=== PATIENT | female | born 1935 | race Caucasian/White ===

== ENCOUNTER → 2017-11-27 | Outpatient (CLI) | payer MEDICARE ==
[~2017-11-27] MED LIST: ALBU4TAB4 PO; AMLO10TA2 PO; ARTIDRO3 EACH EYE; ATEN50TA PO; FISH500C PO; GLUC500T4 PO; MULTTAB67 PO; OCUVCAP PO; OXYC1TAB63 PO; PRAV40TA2 PO; TRIA37.5 PO
--- NOTE | 2017-11-27 12:22 | RADRPT ---
EXAM DATE/TIME: 11/27/2017 11:38 [facility] COMPARISON: No previous studies available for comparison. INDICATIONS : Evaluate for pneumothorax, pneumonia, or communicable disease. Pre-op, hysterectomy. MEDICAL HISTORY : Emphysema. Chronic obstructive pulmonary disease. Hypertension. SURGICAL HISTORY : Thyroidectomy. ENCOUNTER: Initial ACUITY: 1 day PAIN SCORE: 0/10 LOCATION: Bilateral chest FINDINGS: PA and lateral views of the chest demonstrate the lungs to be symmetrically aerated without evidence of mass, infiltrate or effusion. There some chronic interstitial changes bilaterally. The cardiomedia stinal contours are unremarkable. Osseous structures are intact. CONCLUSION: No acute disease. Venkat Magana MD on November 27, 2017 at 12:19 Board Certified Radiologist. This report was verified electronically.
--- NOTE | 2017-11-27 21:43 | EKG ---
Date Performed: 11/27/2017 Time Performed: 11:05:02 PTAGE: 81 years EKG: Sinus rhythm Normal ECG PREVIOUS TRACING : 01/18/2010 11.52 Compared to prior tracing no significant change DOCTOR: Cali Patel Interpretating Date/Time 11/27/2017 21:42:38
== END ==
LOC: CPRE 10:45
PROVIDERS: ATTEND Obstetrics & Gynecology Gynecologic Oncology
DX: Z01.812 Encounter for preprocedural laboratory examination (principal); Z01.810 Encounter for preprocedural cardiovascular examination; Z01.811 Encounter for preprocedural respiratory examination; R19.09 Other intra-abdominal and pelvic swelling, mass and lump
CPT/HCPCS: 71020; 93005

== ENCOUNTER 2017-12-08 08:10 | Observation (INO) | payer MEDICARE ==
[~2017-12-08] VITALS: Ht 172.7 cm; Wt 80.1 kg
[~2017-12-08 08:10] MED LIST changes: -ARTIDRO3 EACH EYE; -OXYC1TAB63 PO
[2017-12-08] MEDS ORDERED: METOPROLOL TARTRATE 25 MG TAB PO PRN (08:45)
[2017-12-08] MEDS ORDERED: CHLORHEXIDINE GLUCONATE 2 % 1 PACK (2 CLOTHS) TOPICAL PRN (08:45)
[2017-12-08] MEDS ORDERED: LACTATED RINGER'S 1000 ML IV PRN (08:45)
[2017-12-08] MEDS ORDERED: SODIUM CHLORID 0.9% 500 ML IV PRN (08:45)
[2017-12-08] MEDS ORDERED: HEPARIN SODIUM - SQ 10,000 UNITS/ML VIAL SQ SCH (08:45)
[2017-12-08] MEDS ORDERED: INSULIN HUMAN REGULAR 1,000 UNITS/10 ML VIAL SQ PRN (08:45)
[2017-12-08] MEDS ORDERED: POVIDONE IODINE 5% (ANTISEPSIS KIT) 4 APPLICATIONS EACH NARE PRN (08:45)
[2017-12-08] MEDS ORDERED: LEVOFLOXACIN 500 MG PREMIX INJ 100 ML IV SCH (09:00)
[2017-12-08] MEDS ORDERED: METRONIDAZOLE 500 MG/100 ML ISONTONIC SOLN IV SCH (09:00)
[2017-12-08] MEDS ORDERED: ONDANSETRON HCL 4 MG/2 ML VIAL IV PUSH ONE (12:00)
[2017-12-08] MEDS ORDERED: ePHEDrine/NS 25 MG/5 ML SYRINGE IV ONE (12:00)
[2017-12-08] MEDS ORDERED: VECURONIUM BROMIDE 20 MG VIAL IV ONE (12:00)
[2017-12-08] MEDS ORDERED: DEXAMETHASONE SOD PHOS 4 MG/ML VIAL IV ONE (12:00)
[2017-12-08] MEDS ORDERED: LACTATED RINGER'S 1000 ML INJ 2,000 ML IV ONE (12:00)
[2017-12-08] MEDS ORDERED: PROPOFOL 200 MG/20 ML AMP IV ONE (12:00)
[2017-12-08] MEDS ORDERED: LIDOCAINE HCL 1% PF 5 ML SYRINGE OTHER ONE (12:00)
[2017-12-08] MEDS ORDERED: KETOROLAC TROMETHAMINE 30 MG/ML (IVP) VIAL IV PUSH ONE (12:00)
[2017-12-08] MEDS ORDERED: STERILE WATER FOR INJECTION 20 ML VIAL IV ONE (12:00)
[2017-12-08] MEDS ORDERED: ROCURONIUM INJ 50 MG/5 ML SYRINGE IV PUSH ONE (12:00)
[2017-12-08] MEDS ORDERED: NEOSTIGMINE 5 MG/5 ML SYRINGE IV PUSH ONE (12:00)
[2017-12-08] MEDS ORDERED: GLYCOPYRROLATE 1 MG/5 ML SYRINGE IV PUSH ONE (12:00)
[2017-12-08] MEDS ORDERED: SODIUM CHLORIDE 0.9% 20 ML VIAL IV ONE (12:00)
[2017-12-08] MEDS ORDERED: PHENYLEPH/NS 1000 MCG/10 ML SYR IV ONE (12:00)
[2017-12-08] MEDS ORDERED: LIDOCAINE 1%/EPINEPHrine 1:100,000 SOLN 20 ML VIAL ONE (13:24)
[2017-12-08] MEDS ORDERED: ACETAMINOPHEN 1000 MG/100 ML 100 ML IV ONE (14:43)
[2017-12-08] MEDS ORDERED: SUGAMMADEX SODIUM 200 MG/2 ML VIAL IV PUSH ONE (14:44)
[2017-12-08 17:45] LABS: HEMATOCRIT 37.7 % (35.0-46.0); HEMOGLOBIN 12.8 GM/DL (11.6-15.3)
[2017-12-08] MEDS ORDERED: LORazepam 0.5 MG TAB PO PRN (19:15)
[2017-12-08] MEDS ORDERED: SODIUM CHLORIDE 0.9% FLUSH 10 ML FLUSH IV FLUSH PRN (19:15)
[2017-12-08] MEDS ORDERED: oxyCODONE/ACETAMINOPHEN 5 MG/325 MG TAB PO PRN ×2 (19:15)
[2017-12-08] MEDS ORDERED: ONDANSETRON HCL 4 MG/2 ML VIAL IVP PRN (19:15)
[2017-12-08] MEDS ORDERED: diphenhydrAMINE HCL 25 MG CAP PO PRN (19:15)
--- NOTE | 2017-12-08 19:15 | PD.OP ---
Operative Report Date of Surgery: Dec 08, 2017 Preoperative Diagnosis: Right ureteral thermal injury Postoperative Diagnosis: Same Procedure: Cystoscopy with right double-J stent insertion Anesthesia: BREONNA Surgeon: Eric Hameed Pop Singer(s): None Resident Surgeon: None Operation and Findings: 8-year-old female who is undergoing resection of a pelvic mass by Dr. Ledbetter. Concern for right ureteral thermal injury was noted during the procedure and request for made for a right double-J stent insertion. The patient was oriented dorsal lithotomy position and received preprocedure antibiotics and was under general endotracheal tube anesthesia. 20 Ukrainian cystoscopy was inserted bladder flores cystoscopy did not reveal any abnormalities. Good efflux was identified from both ureteral orifices. A 0.35 sensor wire was then passed up through a 5 Ukrainian open catheter into the right ureteral orifice without difficulty. A 6 Ukrainian 22 cm right double-J stent was then passed without difficulty. The stent was noted to drain some debris after placement. The 16 Ukrainian Wang was then replaced without difficulty and she tolerated the procedure well. The plan will be to have her follow-up in the office in 4 weeks to undergo stent pull. Eric Hameed DO Dec 08, 2017 19:15
[2017-12-08] MEDS ORDERED: DO NOT ADM ANY ANTICOAGULANT DRUGS PRN (19:32)
[2017-12-08] MEDS ORDERED: MORPHINE SULFATE 4 MG/ML INJ ONE (19:47)
[2017-12-08] MEDS: D5-1/2 NS + KCL 20 MEQ INJ 1,000 ML IV SCH (20:00)
[2017-12-08] MEDS: KETOROLAC TROMETHAMINE 30 MG/ML (IVP) VIAL IVP SCH (20:00)
--- NOTE | 2017-12-08 20:04 | RADRPT ---
EXAM DATE/TIME: 12/08/2017 19:42 [facility] COMPARISON: No previous studies available for comparison. INDICATIONS : Possible aspiration. MEDICAL HISTORY : Emphysema. Chronic obstructive pulmonary disease. Hypertension SURGICAL HISTORY : Thyroidectomy. ENCOUNTER: Initial ACUITY: 1 day PAIN SCORE: 0/10 LOCATION: Bilateral chest FINDINGS: A single view of the chest demonstrates the lungs to be symmetrically aerated without evidence of mas s, infiltrate or effusion. The cardiomediastinal contours are unremarkable. Osseous structures are intact. CONCLUSION: Normal examination. The aorta remains quite tortuous. Nigel Ramirez MD on December 08, 2017 at 20:01 Board Certified Radiologist. This report was verified electronically.
[2017-12-08] MEDS: SODIUM CHLORIDE 0.9% FLUSH 10 ML FLUSH IV FLUSH SCH (20:34)
[2017-12-08 21:00] VITALS: BP 104/51; PULSE 59; RESP 18; TEMP 96.2; O2SAT 94
[2017-12-08] MEDS ORDERED: ALBUTEROL SULFATE 2 MG TAB PO SCH (21:00)
[2017-12-08 22:00] VITALS: PULSE 66
[2017-12-08] MEDS: metroNIDAZOLE 250 MG INJ 50 ML IV SCH (22:09)
[2017-12-08] MEDS: RESP: ALBUTEROL 1.25 MG/3 ML NEB (SCH) NEB (22:13)
[2017-12-08 22:18] VITALS: O2SAT 95
[2017-12-08 23:34] VITALS: BP 110/63; PULSE 67; RESP 16; TEMP 98.3; O2SAT 95
[2017-12-09] MEDS: KETOROLAC TROMETHAMINE 30 MG/ML (IVP) VIAL IVP SCH ×3 (02:46→13:31)
[2017-12-09] MEDS: RESP: ALBUTEROL 1.25 MG/3 ML NEB (SCH) NEB ×3 (03:24→16:23)
[2017-12-09 03:30] VITALS: BP 103/56; PULSE 69; RESP 16; TEMP 97; O2SAT 94
[2017-12-09] MEDS: metroNIDAZOLE 250 MG INJ 50 ML IV SCH ×2 (06:07→13:31)
[2017-12-09 06:54] LABS: AUTOMATED NEUTROPHIL # 16.8 TH/MM3 (1.8-7.7); BASOPHIL % 0.1 % (0.0-2.0); HEMATOCRIT 34.3 % (35.0-46.0); HEMOGLOBIN 11.8 GM/DL (11.6-15.3); LYMPH % 5.9 % (9.0-44.0); LYMPHOCYTE # 1.1 TH/MM3 (1.0-4.8); MEAN CORPUSCULAR HEMOGLOBIN 31.7 PG (27.0-34.0); MEAN CORPUSCULAR HGB CONC 34.5 % (32.0-36.0); MEAN PLATELET VOLUME 8.6 FL (7.0-11.0); MONO % 6.9 % (0.0-8.0); MONOCYTE # 1.3 TH/MM3 (0-0.9); NEUT % 87.1 % (16.0-70.0); PLATELET COUNT 281 TH/MM3 (150-450); RED BLOOD COUNT 3.73 MIL/MM3 (4.00-5.30); RED CELL DISTRIBUTION WIDTH 12.8 % (11.6-17.2); WHITE BLOOD COUNT 19.3 TH/MM3 (4.0-11.0)
[2017-12-09 07:16] LABS: CALCIUM 7.8 MG/DL (8.5-10.1); CARCINOEMBRYONIC ANTIGEN 1.7 NG/ML (0.2-5.0); CREATININE 0.98 MG/DL (0.50-1.00)
[2017-12-09 07:52] LABS: CA 125 146.1 U/ML (0.0-30.2)
[2017-12-09] MEDS ORDERED: OXYC1TAB63 PO (08:01)
--- NOTE | 2017-12-09 08:18 | MP ---
cc: CONRADO ROYAL MD,MELL GALVAN,EUGENE HAMEED,ALONSO MONIQUE DATE OF SURGERY 12/08/2017 PREOPERATIVE DIAGNOSIS 1. Complex pelvic mass. 2. Thickened endometrial stripe. 3. Postmenopausal bleeding. POSTOPERATIVE DIAGNOSIS 1. 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 2. Dense pelvic adhesions. 3. Atrophic endometrium. PROCEDURE Robotic-assisted laparoscopic hysterectomy, bilateral salpingo-oophorectomy (with resection of 18 cm complex right ovarian mass) right ureterolysis, extensive lysis of adhesions. SURGEON Eugene Galvan MD MINK SLICER [place] medical record assistant ANESTHESIA General endotracheal anesthesia ESTIMATED BLOOD LOSS 500 cc IV FLUIDS 2200 cc URINE OUTPUT [address] Alonso Hameed, Urology HISTORY This is an 82-year-old female who initially on routine exam asymptomatic found to have a pelvic mass. This was approximately May or July of last year. Imaging and exam suggested it to be approximately 9 cm complex. On further questioning, she revealed that she had some postmenopausal bleeding and was not sure if it was urologic of gynecologic in origin. Ultrasound suggested a thickened endometrial stripe of approximately 9-10 mm. She was seen and counseled and surgery was recommended at that time, however she declined. Follow-up imaging in the clinic in October showed that the mass had increased significantly in size to approximately 15 cm complex in nature and again surgery was recommended. She declined moving forward with surgery immediately and wanted to wait until after the holidays. She is seen now the preop holding area accompanied by her close friend. On preliminary exam in the preop holding area, the mass seems even slightly larger than previously as the upper limit of the mass is at the level of the umbilicus. She remains asymptomatic other than a sense of pelvic pressure on occasion and she does still have occasional bleeding that she remains uncertain as to whether or not it is urological or gynecologic. We reviewed the findings and recommendation for surgery. She is in great hopes of laparoscopic surgery to help facilitate faster recovery. She understands that our objective is to try to accomplish principle surgical objectives laparoscopically robotically, but she understands there may be a need to convert to a laparotomy. Her questions were asked and answered. She expressed a good understanding and agrees to move forward with surgery. FINDINGS Uterine cavity sounds to 8 cm. In the peritoneal cavity, the mass is clearly arising from and replacing the right ovary. It is noted prior to any surgical dissection, there is a defect in the posterior wall of the mass as there is blood-tinged fluid leaking posteriorly and in the posterior cul-de-sac. The mass is complex in nature clearly has cystic and solid components and the upper edges of the mass are relatively free and mobile. However in the cul-de-sac and against the right pelvic sidewall, there is some significant fixation. The left tube and ovary grossly appeared normal. The uterus grossly appears normal. In the peritoneal cavity, the liver diaphragm edges are smooth. The omentum grossly appears normal without peritoneal implants in the visceral or parietal peritoneum. The small bowel and large bowel mesentery and he bowel itself are normal without any obvious implants. There is some diverticulum without active diverticulosis such that there is no overt evidence of disease beyond this large mass. Preliminary pathology of the uterus shows the uterine lining to be thin. There is no obvious mass or polyp. There is no obvious thickening to the myometrium. No tumor seen in the uterus or cervix. 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 MODIFYING/STATEMENT OF COMPLEXITY The complexly of this case was increased significantly due to the dense pelvic adhesions and the way the tumor was fixed to the right pelvic sidewall and cul-de-sac. It is estimated that 60 minutes of time were required lysing adhesions trying to free the tumor from the pelvic sidewall to try to free the obliteration of the posterior cul-de-sac. Modifier should be applied accordingly. PROCEDURE She was taken to the operating room, placed in the dorsal lithotomy position after general endotracheal anesthesia was administered. A time-out was undertaken. She was identified by sight recognition and hospital ID bracelet and the proposed procedure was reviewed and confirmed. She was carefully positioned in padded Kev stirrups. Her arms were padded and secured to the side. She was further secured to the operating table with egg crate padding and tape in a cross chest over the shoulder fashion. All sites noted to be properly aligned with no malalignments or pressure points. She was prepped and draped in a sterile fashion and placed in lithotomy position. The cervix was grasped. The uterine cavity was sounded. Initially a standard V-Care was tried to be placed, but there was narrowing through the vaginal canal such that the V-Care was changed to a small V-Care which did satisfactorily fit around the cervix. It was secured in the usual fashion. A Wang catheter placed in the bladder. She was returned to low lithotomy position. After Wang catheter was placed, a change of sterile gloves was undertaken. We completed draping in anticipation of laparoscopy. After confirming that an orogastric tube was in the stomach on suction, with manual elevation of the abdominal wall and direct laparoscopic vision visualization, a 5-mm cannula was placed in the left upper quadrant in an atraumatic fashion. Carbon dioxide gas was insufflated and then a 10-mm cannula was placed in midline above the umbilicus and an 8-mm cannula placed in right upper quadrant and left lateral quadrant. Inspection confirmed the findings in the anatomy as described above. As noted, there was a defect in the posterior wall of this complex mass where bloody fluid had been leaking from the posterior aspect of this mass, but no other overt evidence of disease detected. The robotic system brought into the operative field and attached in usual fashion. Monopolar scissors, fenestrated bipolar forceps and Prograsp manipulators were placed in arms #1, 2 and 3 respectively and I took my place at the surgeon's console. The right round ligament was isolated, cauterized and transected. The anterior and posterior leafs of the broad ligament were opened. The right ureter was identified proximally as it crossed over the pelvic brim and the intervening peritoneum was opened as the infundibulopelvic ligament was isolated to the level of the pelvic brim. Instruments 1 and 3 exchanged for needle drivers as 0 Vicryl sutures were introduced. 0 Vicryl suture was tied securely around the infundibulopelvic ligament at the level of pelvic brim and another 0 Vicryl suture was tied securely around the infundibulopelvic ligament and then distal to this, it was cauterized thoroughly and then transected. The instruments were returned to monopolar scissors and fenestrated bipolar forceps. Sharp dissection and focal point cautery were used to free the adhesions along the posterolateral aspect of the mass. Blunt dissection and sharp dissection were used to free the ureter from along the posterolateral aspect of the mass as it was densely adherent and a ureterolysis was carried out proximally to distally to follow the ureter along its course through the pelvis. Given that the mass had a defect in it, the fluid that was leaking was drained and approximately 800 cc's of fluid had been drained which helped reduce the cystic component of the mass and increase mobility. The right vesicouterine peritoneum was dissected off the lower uterine segment and cervix as the right uterine vessels were skeletonized. The posterior peritoneum was opened along the right side of the uterus and cervix and the right uterine vessels were skeletonized, cauterized and transected as were the cardinal, paracervical and uterosacral ligaments. The right utero-ovarian ligament was isolated, cauterized and transected, but there remained dense fixation of this mass with seemingly tumor infiltrating through the capsule into the right pelvic sidewall and to the right cul-de-sac that was somewhat hemorrhagic and dissection was carried out with isolated sharp dissection, focal cautery. However, the mass remained densely adherent in this location. Attention was directed toward the left round ligament which was isolated, cauterized and transected. The anterior and posterior leafs of the broad ligament were opened. Adhesions were taken down to mobilize the colon away from the left pelvic sidewall. The left ureter was identified. The left infundibulopelvic ligament was isolated as the intervening peritoneum was opened. The infundibulopelvic ligament was isolated to the level of the pelvic brim where it was cauterized and transected. The posterior peritoneum opened along the left side of the uterus and cervix. Additional adhesions were taken down to open the posterior cul-de-sac and mobilize the colon from its adhesions against the posterior cervix. The left vesicouterine peritoneum was dissected off the lower uterine segment and cervix and the left uterine vessels were skeletonized, cauterized and transected as were the cardinal paracervical and uterosacral ligaments. Attention was then redirected to the remaining fixation of tumor to pelvic sidewall. Blunt and sharp dissection were used to dissect this free and to remove the mass from the cul-de-sac and from overlying the surface of the colon and colonic mesentery. It was fairly hemorrhagic and had derived some new vasculature in this area. Isolated cautery and then pressure with a Ray-Felicia and pressure was used using the Ray-Felicia sponges to help with initial hemostasis. Colpotomy was performed following the cap of the [email or web address] manipulator the cervix from the upper vagina. The cervix and uterus and the attached left tube and ovary were then withdrawn transvaginally and a Pneumooccluder balloon was placed in the vagina to maintain pneumoperitoneum. Dissection was continued to separate the adherent mass against the right pelvic sidewall with care being taken to isolate the ureter and separate this. Focal cautery for hemostasis until this tumor was removed. A 15 cm EndoCatch bag was introduced transvaginally. The mass was captured in the bag. Some tumor that had extruded through the ruptured capsule was collected, placed in an EndoCatch bag and brought toward the vagina. I left the surgeon's console to help facilitate specimen delivery. Using ring forceps and tenaculums within the specimen bag as the bag was brought out through the introitus, the mass was reduced in size. The tumor was removed until the remainder of the tumor contained within the bag was withdrawn transvaginally and the Pneumooccluder balloon was replaced. I returned to the surgeon's console. Instruments one and three exchanged for needle drivers. As 0 Vicryl suture was introduced, the vaginal cuff was closed starting at the left corner full-thickness closure including the posterior edge of the peritoneum and uterosacral ligament tied securely. The closure was held on countertraction as a running continuous closure was carried across the vaginal apex to the contralateral corner where it was similarly fixed and secured tied via instrument tie. The needle was cut and removed. The integrity of the bladder was checked by filling the bladder with saline dyed with methylene blue. The bladder distended nicely under pressure. There were no areas of thinning of the bladder. No extravasation of dye and there was a good margin between the vaginal cuff suture line and the bladder edge and the bladder was drained. There is good peristalsis along the left ureter to its course and what could be seen of the peristalsis of the right ureter was reassuring, but there remained a thin plaque of tumor overlying the ureter against the right pelvic sidewall where the tumor had grown through the capsule and had fixed capful in this area and had been relatively hemorrhagic and this tissue had been sharply resected and cauterized. The pelvis and abdomen were thoroughly irrigated. Superficial serosal irritation in one area of the colon was oversewn with interrupted 3-0 Vicryl sutures. There was loss of integrity to the bowel wall, but this area was reinforced with interrupted 3-0 Vicryl sutures, tied via instrument tie and the needle was cut and removed. Due to the tumor fixation against the right pelvic sidewall, an extensive dissection in that area, confirmation of intact ureter beyond visible inspection was desired and so Dr. Alonso Hameed of urology was consulted. Dr. Hameed graciously came to the operating room without delay. I showed him on the laparoscopic monitor the area of concern and where I could see the ureter clearly with good peristalsis, I believed it to be intact with intact integrity, but I recommended cystoscopy and stent placement to ensure. The pelvis and abdomen were again thoroughly irrigated of any remaining tissue fragments and blood clot were remove. All sites were hemostatic. Hemostatic Surgicel powder was placed across the lateral sidewall dissection, vaginal cuff and posterior cul-de-sac. Given her age and medical condition and the duration of time already under anesthesia due to the difficulty of dissection combined with the fact that it was a high-grade tumor with ruptured capsule which systemic chemotherapy would be recommended, combined with the fact there was no obvious gross disease in the peritoneal cavity, it was felt that additional time under anesthesia for omentectomy, peritoneal biopsies, lymph node dissection or other staging steps would be associated with morbidity that exceeded benefit and would not impact treatment recommendations. Accordingly, it was felt that all reasonable surgical objectives had been completed. The robotic instruments were removed. The robotic system was disengaged from the operative field and I reentered the bedside under sterile condition. Each of the three Ray-Felicia sponges that had been placed in the perineal cavity were removed individually. Each were inspected noted be removed in their entirety. Preliminary counts were correct. There were no remaining foreign objects in the peritoneal cavity. The 12 mm fascial defect was closed with 0 Vicryl sutures interrupted using a needle pass fascia closure apparatus. They were tied securely which rendered the fascia completely airtight and hemostatic. The remaining cannulas were withdrawn. Carbon dioxide gas was removed from the peritoneal cavity. 3-0 Vicryl subcutaneous, 3-0 Vicryl subcuticular were used to close these incisions and Steri-Strips were placed over these incisions. She was returned to dorsolithotomy position. Pelvic exam confirmed that the vaginal cuff was well supported and hemostatic, however, there was a vaginal wall laceration from specimen delivery against a relatively narrow pelvic outlet atrophic tissue at the 9 o'clock position. This laceration was closed with interrupted 2-0 Vicryl suture which reapproximated the tissue rendering it hemostatic and then to assist in continued hemostasis some Surgicel snow was placed along the vaginal cuff and against the right pelvic sidewall in the region of the surgical repair. Otherwise, there were no remaining foreign objects in the vagina. Preliminary and final counts were correct. She was returned to low lithotomy position. At this point, Dr. Alonso Hameed performed cystoscopy. Please see his operative note, but he relayed to me that he saw good efflux of urine from the ureteral ostia bilaterally and he past a stent into the right ureter without any difficulty and the indwelling stent will be left to facilitate and ensure healing over the next few weeks. She was then returned to dorsal supine position and was pending reversal of anesthesia when I had already left the operating room to speak with her significant other in the family waiting area and to precede her to the Post Anesthesia Care Unit. MD KENISHA Amor/ABEBA /9:56 PM /7:30 AM
[2017-12-09 08:30] VITALS: BP 112/68; PULSE 72; RESP 18; TEMP 98.4; O2SAT 93
[2017-12-09] MEDS: SODIUM CHLORIDE 0.9% FLUSH 10 ML FLUSH IV FLUSH SCH (08:39)
[2017-12-09] MEDS ORDERED: ATENOLOL 50 MG TAB PO SCH (09:00)
[2017-12-09] MEDS ORDERED: PRAVASTATIN SOD 40 MG TAB PO SCH (09:00)
[2017-12-09] MEDS ORDERED: TRIAMTERENE/HCTZ 37.5 MG/25 MG TAB PO SCH (09:00)
--- NOTE | 2017-12-09 09:40 | MD ---
cc: CONRADO ROYAL MD,EUGENE MARTE MD, SHAWN ADMISSION DATE: 12/08/2017 DISCHARGE DATE: 12/09/2017 [facility] Visit Search.Discharge Date PROCEDURE 12/08/2017 - Robotic-assisted laparoscopic hysterectomy, bilateral salpingo-oophorectomy (with resection of 18-cm right ovarian mass), extensive lysis of adhesions, right ureterolysis. DIAGNOSIS Large pelvic mass (preliminary path consistent with poorly differentiated ovarian carcinoma). HOSPITAL COURSE She remained hemodynamically stable, adequate pain control, tolerating oral intake. Ins and outs 3150/1725. LABS H&H 11.8 and 34.3. Electrolytes essentially normal - potassium 3.7, BUN and creatinine 20 and 0.98. CEA normal at 1.7. CA-125 is drawn and pending. PHYSICAL EXAMINATION VITAL SIGNS: On physical exam she is afebrile, pulse rate controlled at 59-69, respiratory rate 16-18, blood pressure 103-110/51-63. O2 saturations greater than or equal to 94% while asleep, 95-97% while awake. LUNGS: The lungs are clear at apices. There are mild rales at the bases. No active wheeze or rhonchi. CARDIOVASCULAR: Regular rate and rhythm. ABDOMEN: Incisions clean and dry. JEWEL BEARING DRILLER: Mild serosanguineous discharge. No active bleeding per patient report. EXTREMITIES: Nontender. ASSESSMENT Postoperative day #1. The findings at the time of surgery, the steps taken, the preliminary pathology were reviewed and the rationale for right ureteral stent placement was explained as well as oversewing area of the bowel and recommendation for antibiotics were all discussed and reviewed. Her surgery ran late yesterday so ongoing assessment today as to whether or not she will be ready for discharge. She is in favor of trying to go home today and it is quite possible that she may meet requirements for discharge but given her age, late and length of surgery and her underlying medical issues as well as the complexity of surgery, we will reassess throughout the day prior to making that incision. PLAN As noted above, tentative discharged today with ongoing reevaluation as to whether or not she needs to remain in the hospital another 24 hours. DISCHARGE MEDICATIONS 1. She is to resume prior medications. 2. She will have a prescription for Percocet for pain as well as [id number] medication to take as needed. 3. She will also have a prescription for Flagyl 250 mg three times a day x 1 week. 4. Levaquin 250 mg once a day x1 week. FOLLOWUP She has been given our office number again and she is asked to call our office to ensure she has followup with us in 2 weeks and she should follow up with Dr. Eric Hameed in Urology for reassessment and stent removal sometime within 3-4 weeks. DISCHARGE INSTRUCTIONS Activities and restrictions were discussed. Questions were asked and answered. She expressed good understanding and agreed. MD KENISHA Amor/FRANCES /7:43 AM /9:08 AM
[2017-12-09 09:53] VITALS: O2SAT 93
[2017-12-09 13:00] VITALS: BP 127/61; PULSE 65; RESP 16; TEMP 98; O2SAT 95
[2017-12-09] MEDS: D5-1/2 NS + KCL 20 MEQ INJ 1,000 ML IV SCH (13:30)
[2017-12-09] MEDS ORDERED: LEVOFLOXACIN 250 MG PREMIX INJ 50 ML IV SCH (14:00)
[2017-12-09] MEDS ORDERED: D5-1/2 NS + KCL 20 MEQ INJ 1,000 ML IV SCH ×2 (15:00→19:00)
== END 2017-12-09 18:05 | disposition home or self-care (01) ==
LOC: HSDC 08:10 → HSDI 19:14 → HCIN 20:40
PROVIDERS: ADMIT Obstetrics & Gynecology Gynecologic Oncology; ATTEND Obstetrics & Gynecology Gynecologic Oncology
DX: C56.1 Malignant neoplasm of right ovary (principal); N95.0 Postmenopausal bleeding; N73.6 Female pelvic peritoneal adhesions (postinfective); N85.8 Other specified noninflammatory disorders of uterus; S37.19XA Other injury of ureter, initial encounter; J44.9 Chronic obstructive pulmonary disease, unspecified; I10 Essential (primary) hypertension
CPT/HCPCS: 00840; 00910; 52332; 58552; 71045; 80048; 82378; 85014; 85018; 85025; 86304; 86850; 86900; 86901; 86920; 88112; 88307; 88331; 94150; 94640; 94664; 96365; 96366; 96368; 96375; 96376; C1769; G0378; J0131; J1100; J1644; J1885; J1956; J2270; J2370; J2405; J2710; J3010; J3480; J7120; J7613; 88329

== ENCOUNTER 2018-01-07 08:38 | Day surgery (SDC) | payer MEDICARE ==
[~2018-01-07] VITALS: Ht 172.7 cm; Wt 75.9 kg
[~2018-01-07 08:38] MED LIST changes: +OXYC1TAB63 PO
[2018-01-07 09:00] VITALS: BP 124/74; PULSE 54; RESP 20; TEMP 97.8; O2SAT 94
[2018-01-07] MEDS ORDERED: BIOTCAP PO (09:40)
[2018-01-07] MEDS ORDERED: CHOL400T17 (09:40)
[2018-01-07] MEDS ORDERED: [UNRECOGNIZED DRUG - OTHER] (09:40)
[2018-01-07] MEDS ORDERED: FLAV3.7O (09:40)
[2018-01-07] MEDS ORDERED: SODIUM CHLORIDE 0.9% 1000 ML IV SCH (10:30)
[2018-01-07] MEDS ORDERED: POVIDONE IODINE 5% (ANTISEPSIS KIT) 4 APPLICATIONS EACH NARE SCH (10:30)
[2018-01-07] MEDS ORDERED: CHLORHEXIDINE GLUCONATE 2 % 1 PACK (2 CLOTHS) TOPICAL SCH (10:30)
[2018-01-07] MEDS ORDERED: VANCOMYCIN 1000 MG/NS 250 ML - implanted port/tunneled catheter IV SCH ×2 (10:30)
[2018-01-07] MEDS ORDERED: MIDAZOLAM HCL 2 MG/2 ML VIAL ONE (10:51)
[2018-01-07 12:15] VITALS: BP 111/57; PULSE 60; RESP 20; TEMP 97.4; O2SAT 93
[2018-01-07 12:30] VITALS: BP 108/62; PULSE 57; RESP 20; O2SAT 98
[2018-01-07] MEDS ORDERED: SODIUM CHLORIDE 0.9% FLUSH 10 ML FLUSH IVF PRN (12:30)
--- NOTE | 2018-01-07 12:30 | PD.RAD ---
Post Procedure Progress Note Pre Procedure Diagnosis: (1) Ovarian cancer Post Procedure Diagnosis: (1) Ovarian cancer Procedure Date: Jan 07, 2018 Supervising Radiologist: Booker Joshi Proceduralist/Assist: Cuco Hernandez, RT(R), Drea Calvert RT(R) Anesthesia: Conscious Sedation Plan of Activity Patient to Unit: [facility] Patient Condition: Good See PACS Report for procedural detail/treatment Central Venous Access Device Procedure 1 Right Internal Jugular Infusaport Placement single lumen Booker Joshi MD Jan 07, 2018 12:30
[2018-01-07 13:00] VITALS: BP 107/54; PULSE 54; RESP 20; O2SAT 92
[2018-01-07 13:30] VITALS: BP 110/58; PULSE 56; RESP 20; O2SAT 94
[2018-01-07 14:00] VITALS: BP 122/63; PULSE 58; RESP 20; O2SAT 94
--- NOTE | 2018-01-07 14:52 | RADRPT ---
EXAM DATE/TIME: 01/07/2018 11:58 [place] COMPARISON: No previous studies available for comparison. INDICATIONS : Patient presents with ovarian cancer in need of port placement for treatment. MEDICAL HISTORY : Ovarian cancer Cataracts COPD High cholesterol HTN Kidney disease (stage 3) Osteopenia Thyroid disease Uterine finoids SURGICAL HISTORY : Eye surgery Shoulder surgery Hysterectomy Breast biopsy Colonoscopy Partial thyroidectomy Ureteral stent Resection of ovarian mass Tonsillectomy ENCOUNTER: Initial ACUITY: 2 weeks PAIN SCORE: 0/10 LOCATION: N/A FLUORO TIME: 0.5 minutes IMAGE SERIES: SEDATION TIME: 10 minutes ACCESS: Right internal jugular vein SEDATION: 1.) 2 mg midazolam (Versed) IV 2.) 100 mcg fentanyl (Sublimaze) IV Prophylactic antibiotics were administered with appropriate pre-procedure timing. Vancomycin within 2 hours of procedure, Ancef (or alternative) within 1 hour of procedure. DEVICE: 1. 8 [place] single lumen Xcela Plus Port PROCEDURE : 1. Continuous pulse oximetry and EKG monitoring. 2. Intravenous conscious sedation. 3. Ultrasound guidance for venous access. 4. Fluoroscopic guided implantable central venous port placement. The patient was placed supine. The neck was prepped in sterile fashion. Full sterile technique was u sed, including cap, mask, sterile gloves and gown, and a large sterile sheet. Hand hygiene and 2% ch lorhexidine Betadine was utilized per protocol for cutaneous antisepsis with appropriate dry time for site. Sterile gel and sterile probe cover were utilized for ultrasound guidance. The skin and sub cutaneous tissues were infiltrated with local anesthetic solution. Under direct ultrasound guidance, central venous access was accomplished in the targeted vessel. The ultrasound images depicting access guidance were stored and saved to PACS for permanent record. A s ubcutaneous pocket was created using blunt dissection. The port was introduced to the pocket. The c atheter tubing was fed through a subcutaneous tunnel to the venotomy site. The catheter tubing was c ut to a suitable length and then was introduced through a valved Peel-Away sheath and positioned with catheter tubing tip at the cavo-atrial junction level. The pocket incision was closed with subcutic ular Vicryl suture. Steri-Strips were applied. The port was flushed and locked with heparin solutio n per protocol. Sterile dressing was applied to the site. The patient tolerated the procedure well. Conscious sedation was performed with the prescribed dosages and duration as above in the presence of an independent trained radiology nurse to assist in the monitoring of the patient. EKG and oximetry remained stable throughout the procedure. The patient tolerated the procedure well and there were no complications. The patient was sent to post anesthesia recovery in stable condition. CONCLUSION: Uncomplicated ultrasound and fluoroscopic guided implanted central venous port catheter placement as described in detail above. An 8 [place] Power port was placed. Booker Joshi MD on January 07, 2018 at 14:50 Board Certified Radiologist. This report was verified electronically.
== END 2018-01-07 14:15 | disposition home or self-care (01) ==
LOC: HROP 08:38 → HRIP 08:39 → HROP 14:15
PROVIDERS: ATTEND Obstetrics & Gynecology Gynecologic Oncology
DX: Z45.2 Encounter for adjustment and management of vascular access device (principal); C56.9 Malignant neoplasm of unspecified ovary; I12.9 Hypertensive chronic kidney disease with stage 1 through stage 4 chronic kidney disease, or unspecified chronic kidney disease; N18.3 Chronic kidney disease, stage 3 (moderate); J44.9 Chronic obstructive pulmonary disease, unspecified; E78.00 Pure hypercholesterolemia, unspecified; E07.9 Disorder of thyroid, unspecified; M85.80 Other specified disorders of bone density and structure, unspecified site
CPT/HCPCS: 36561; 76937; 77001; 99152; C1788; J1642; J2250; J3010; J3370; J7050

== ENCOUNTER 2018-07-06 12:16 | Observation (INO) ==
[2018-07-06] MEDS ORDERED: Sod Chloride 0.9% Inj 1,000 ML IV.SIG ONE (12:44)
[2018-07-06] MEDS ORDERED: Morphine Inj 4 MG/ML Vial IV.PUSH ONE (12:44)
--- NOTE | 2018-07-06 12:49 | ED ---
HPI General Chief complaint: Fall Stated complaint: VILLANUEVA INLET RESCUE/FALL Time Seen by Provider: 07/06/18 12:23 Source: patient, family, EMS, RN notes reviewed and old records reviewed Mode of arrival: EMS History of Present Illness HPI narrative: 82yF presenting with multiple falls. The patient states that over the past week she has fallen from a standing height 3-4 times because "my knees buckled under me". Yesterday, she was walking in her driveway when she again fell, landing on her back. Denies head injury or LOC, neck pain, chest or abdominal pain. She uses a walker at all times and states that she has severe "sharp" lower back pain which is constant, radiating into both legs, worse with movement, and is so severe that she is unable to ambulate even with a walker. Denies lower extremity weakness, change in bowel/ bladder habits, or saddle anesthesia. She reports 6 months of bilateral hand and foot numbness which she was told was due to chemo. She has a history of ovarian CA (unclear what stage). Related Data Home Medications Medication Instructions Recorded Confirmed albuterol sulfate 4 mg PO QID 07/06/18 07/06/18 amlodipine 10 mg PO DAILY 07/06/18 07/06/18 atenolol 50 mg PO DAILY 07/06/18 07/06/18 biotin 5,000 mcg PO DAILY 07/06/18 07/06/18 cholecalciferol (vitamin D3) 400 unit PO DAILY 07/06/18 07/06/18 [Vitamin D3] cinnamon bark [Cinnamon] 1 tab PO DAILY 07/06/18 07/06/18 garlic 2,000 mg PO DAILY 07/06/18 07/06/18 multivitamin [Multiple Vitamins] 1 tab PO DAILY 07/06/18 07/06/18 omega-3 fatty acids-fish oil [Fish 1 cap PO DAILY 07/06/18 07/06/18 Oil] pravastatin 40 mg PO DAILY 07/06/18 07/06/18 triamterene-hydrochlorothiazid 1 tab PO DAILY 07/06/18 07/06/18 Allergies Allergy/AdvReac Type Severity Reaction Status Date / Time penicillin G Allergy Mild Hives Verified 07/06/18 12:36 Review of Systems Except as stated in HPI: all other systems reviewed are negative Constitutional Denies fever(s) Eyes Denies blurry vision ENT Denies nasal congestion Cardiovascular Denies chest pain Respiratory Denies cough Gastrointestinal Denies fecal incontinence and Denies nausea Genitourinary Denies dysuria and Denies urinary incontinence Musculoskeletal Reports back pain Neurologic Denies confusion Psychiatric Denies confusion PMFSH History History Provided By: Patient Medical History Medical History Hypertension (Acute) H/O thyroidectomy (Acute) H/O: hysterectomy (Acute) Ovarian cancer (Acute) Social History Social History Substance History: No History of Abuse Smoking Status: Former smoker How Often Do You Have a Drink Containing Alcohol: 4 or more times a week Recent Out of Country Travel within the Last 8 Weeks: No Immunization History Tetanus Immunization: Unsure Hx Influenza Vaccine This Season: Yes Exam Const General: no acute distress and frail appearing HENMT Head: normocephalic and atraumatic Face and sinus: normal facial exam Eyes General: appearance normal, both eyes and all related structures Pupils: PERRL Chest Chest: normal inspection of the chest Resp Effort & Inspection: normal respiratory effort Auscultation: no rhonchi and no wheezes Cardio Rate: regular rate Rhythm: regular rhythm GI Inspection: non-distended Palpation: soft and nontender Back/Spine/Pelvis Other: Moderate midline lumbar tenderness around L2-L3, no step-off Pelvis stable, leg lengths equal Skin General: no rashes or lesions noted Neuro General: alert, awake and oriented x3 Other: Motor strength 5/5 in hip flexion/ extension, knee flexion/ extension, and plantar/ dorsiflexion bilaterally, no foot drop Sensation intact to bilateral lower extremities although patient reports subjective numbness in hands and feet (baseline) Psych Affect: normal affect Course Initial Documented Vital Signs Temperature 98.1 F 07/06/18 12:30 Pulse Rate 70 07/06/18 12:30 Respiratory Rate 18 07/06/18 12:30 Blood Pressure 129/77 07/06/18 12:30 Last Documented Vital Signs Temperature 98.1 F 07/06/18 12:30 Pulse Rate 67 07/06/18 14:41 Respiratory Rate 16 07/06/18 14:41 Blood Pressure 124/75 07/06/18 14:41 Pulse Oximetry 95 07/06/18 14:41 Medical Decision Making [facility] Narrative Medical decision making narrative: Assessment: 82yF presenting with multiple falls Plan: Pain control Labs UA EKG CT lumbar spine/ abd/ pelvis to r/o traumatic injury or pathologic fracture Case management Pt signed out to me pending CT scan, re-evaluated the patient, continues to have back pain, used to be able to ambulate with a walker, currently unable to do so, unclear if due to generalized weakness or from the L1 compression fracture that was evident on the CT lumbar scan. pt will benefit from admission for possible surgical intervention vs rehab. spoke with dr Bustamante who accepted the patient. Differential Diagnosis Differential Diagnosis: Differential diagnosis includes, but is not limited to: lumbar fracture, pelvic fracture, dehydration, electrolyte abnormality, anemia, UTI Lab Data Result diagrams: 07/06/18 13:05 07/06/18 13:05 Lab Results 07/06/18 07/06/18 07/06/18 Range/Units 13: 13:05 13:05 CBC w Diff Auto diff final WBC 9.7 (4.0-11.0) th/mm3 RBC 3.78 L (4.00-5.30) mil/mm3 Hgb 13.1 (11.6-15.3) gm/dL Hct 39.3 (35.0-46.0) % MCV 104.0 H (80.0-100.0) fL MCH 34.7 H (27.0-34.0) pg MCHC 33.4 (32.0-36.0) % RDW 12.1 (11.6-17.2) % Plt Count 158 (150-450) th/mm3 MPV 7.9 (7.0-11.0) fL Neut % (Auto) 75.0 H (16.0-70.0) % Lymph % (Auto) 15.9 (9.0-44.0) % [place] % (Auto) 7.8 (0.0-8.0) % Eos % (Auto) 1.0 (0.0-4.0) % Baso % (Auto) 0.3 (0.0-2.0) % Neut # (Auto) 7.3 (1.8-7.7) th/mm3 Lymph # (Auto) 1.5 (1.0-4.8) th/mm3 [place] # (Auto) 0.8 (0.0-0.9) th/mm3 Eos # (Auto) 0.1 (0.0-0.4) th/mm3 Baso # (Auto) 0.0 (0.0-0.2) th/mm3 WBC Differential . Differential Comment . Sodium 139 (136-145) meq/L Potassium 3.6 (3.5-5.1) meq/L Chloride 104 (98-107) meq/L Carbon Dioxide 27.5 (21.0-32.0) meq/L Anion Gap 8 (5-15) meq/L BUN 12 (7-18) mg/dL Creatinine 0.58 (0.50-1.00) mg/dL Estimated GFR Greater than 89 (>89) mL/min Random Glucose 101 (74-106) mg/dL Calcium 8.9 (8.5-10.1) mg/dL Total Bilirubin 1.5 H (0.2-1.0) mg/dL AST 20 (15-37) U/L ALT 18 (10-53) U/L Alkaline Phosphatase 58 (45-117) U/L Troponin I Less than 0.02 L (0.02-0.05) ng/mL Total Protein 6.9 (6.4-8.2) g/dL Albumin 3.4 (3.4-5.0) g/dL Urine Color (Yellw/Straw) Urine Clarity (Clear) Urine pH (5.0-8.5) Ur Specific [place] (1.002-1.035) Urine Protein (Neg-Trace) mg/dL Urine Glucose (UA) (Negative) mg/dL Urine Ketones (Negative) mg/dL Urine Occult Blood (Negative) Urine Nitrate (Negative) Urine Bilirubin (Negative) Urine Urobilinogen (Less than 2) mg/dL Ur Leukocyte Esterase (Negative) Urine RBC (0-3) /hpf Urine WBC (0-5) /hpf Ur Squamous Epith Cells (0-5) /hpf Urine Bacteria (None) /hpf Micro UA Comment Urine Culture Comments 07/06/18 Range/Units 15:25 CBC w Diff WBC (4.0-11.0) th/mm3 RBC (4.00-5.30) mil/mm3 Hgb (11.6-15.3) gm/dL Hct (35.0-46.0) % MCV (80.0-100.0) fL MCH (27.0-34.0) pg MCHC (32.0-36.0) % RDW (11.6-17.2) % Plt Count (150-450) th/mm3 MPV (7.0-11.0) fL Neut % (Auto) (16.0-70.0) % Lymph % (Auto) (9.0-44.0) % [place] % (Auto) (0.0-8.0) % Eos % (Auto) (0.0-4.0) % Baso % (Auto) (0.0-2.0) % Neut # (Auto) (1.8-7.7) th/mm3 Lymph # (Auto) (1.0-4.8) th/mm3 [place] # (Auto) (0.0-0.9) th/mm3 Eos # (Auto) (0.0-0.4) th/mm3 Baso # (Auto) (0.0-0.2) th/mm3 WBC Differential Differential Comment Sodium (136-145) meq/L Potassium (3.5-5.1) meq/L Chloride (98-107) meq/L Carbon Dioxide (21.0-32.0) meq/L Anion Gap (5-15) meq/L BUN (7-18) mg/dL Creatinine (0.50-1.00) mg/dL Estimated GFR (>89) mL/min Random Glucose (74-106) mg/dL Calcium (8.5-10.1) mg/dL Total Bilirubin (0.2-1.0) mg/dL AST (15-37) U/L ALT (10-53) U/L Alkaline Phosphatase (45-117) U/L Troponin I (0.02-0.05) ng/mL Total Protein (6.4-8.2) g/dL Albumin (3.4-5.0) g/dL Urine Color Yellow (Yellw/Straw) Urine Clarity Slightly cloudy (Clear) Urine pH 6.0 (5.0-8.5) Ur Specific [place] 1.015 (1.002-1.035) Urine Protein Negative (Neg-Trace) mg/dL Urine Glucose (UA) Negative (Negative) mg/dL Urine Ketones Trace H (Negative) mg/dL Urine Occult Blood Negative (Negative) Urine Nitrate Negative (Negative) Urine Bilirubin Negative (Negative) Urine Urobilinogen 1.0 (Less than 2) mg/dL Ur Leukocyte Esterase Small H (Negative) Urine RBC 0-3 (0-3) /hpf Urine WBC 9-20 H (0-5) /hpf Ur Squamous Epith Cells 0-5 (0-5) /hpf Urine Bacteria Many H (None) /hpf Micro UA Comment Culture indicated Urine Culture Comments Culture indicated Imaging Data Radiologist's impression: Abdomen/Pelvis CT 07/06/18 12:44 CONCLUSION: 1. Acute fracture along the superior endplate anteriorly at L1 with minimal loss of height. No retropulsion of posterior fragments. 2. No abdominal visceral injury. 3. Old compression fracture at L2. Lumbar Spine CT 07/06/18 12:44 CONCLUSION: 1. No acute superior endplate compression fracture at L1 without significant loss of height. No retropulsion of posterior fragments. 2. Old moderate compression fracture. 3. Multilevel disc bulges/protrusions. ECG Data Attestation: I personally reviewed and interpreted this ECG as follows: Interpretation: Rate: 67 BPM Rhythm: Sinus [place]: Normal Intervals: Normal intervals, no blocks, QTc 425 ms Q waves: III T waves: Inverted in III ST segments: No elevations or depressions Impression: Non-specific EKG, no changes as compared to EKG from 11/27/2017. Discharge Plan Discharge Disposition Patient Disposition: 30 Still Patient Discharge Condition Condition: Stable Discharge Details Diagnosis: Compression fracture Physicians Team ED Provider: Araceli Bernard Primary Care Provider: Abbi Turcios Rxs /Orders / Referrals /Forms Prescriptions: No Action multivitamin [Multiple Vitamins] Tablet 1 tab PO DAILY RF: 0 pravastatin 40 mg Tablet 40 mg PO DAILY RF: 0 albuterol sulfate 4 mg Tablet 4 mg PO QID RF: 0 triamterene-hydrochlorothiazid 37.5-25 mg Capsule 1 tab PO DAILY RF: 0 garlic 1,000 mg Capsule 2,000 mg PO DAILY RF: 0 amlodipine 10 mg Tablet 10 mg PO DAILY RF: 0 cholecalciferol (vitamin D3) [Vitamin D3] 400 unit Tablet 400 unit PO DAILY RF: 0 atenolol 50 mg Tablet 50 mg PO DAILY RF: 0 cinnamon bark [Cinnamon] 500 mg Capsule 1 tab PO DAILY RF: 0 omega-3 fatty acids-fish oil [Fish Oil] 300-500 mg Capsule 1 cap PO DAILY RF: 0 biotin 5,000 mcg Tablet,Disintegrating 5,000 mcg PO DAILY RF: 0 Discharge Interventions Interventions: Vital Signs Last Done: 07/06/18 14:41 Status ED Status: Pending Admission
[2018-07-06 13:11] LABS: Baso % (Auto) 0.3 % (0.0-2.0); Eos # (Auto) 0.1 th/mm3 (0.0-0.4); Hematocrit 39.3 % (35.0-46.0); Hemoglobin 13.1 gm/dL (11.6-15.3); Lymph # (Auto) 1.5 th/mm3 (1.0-4.8); Lymph % (Auto) 15.9 % (9.0-44.0); Mean Corpuscular HGB Conc 33.4 % (32.0-36.0); Mean Corpuscular Hemoglobin 34.7 pg (27.0-34.0); Mean Platelet Volume 7.9 fL (7.0-11.0); Mono # (Auto) 0.8 th/mm3 (0.0-0.9); Mono % (Auto) 7.8 % (0.0-8.0); Neut # (Auto) 7.3 th/mm3 (1.8-7.7); Platelet Count 158 th/mm3 (150-450); Red Blood Count 3.78 mil/mm3 (4.00-5.30); Red Cell Distribution Width 12.1 % (11.6-17.2); White Blood Count 9.7 th/mm3 (4.0-11.0)
[2018-07-06 13:25] LABS: Chloride 104 meq/L (98-107); Potassium 3.6 meq/L (3.5-5.1); Sodium 139 meq/L (136-145)
[2018-07-06 13:30] LABS: Albumin 3.4 g/dL (3.4-5.0); Anion Gap 8 meq/L (5-15); Blood Urea Nitrogen 12 mg/dL (7-18); Calcium 8.9 mg/dL (8.5-10.1); Carbon Dioxide 27.5 meq/L (21.0-32.0); Glucose,Random 101 mg/dL (74-106)
[2018-07-06 13:33] LABS: Alanine Aminotransferase 18 U/L (10-53); Aspartate Aminotransferase 20 U/L (15-37); Glomerular Filtration Rate Greater Than 89 mL/min (>89)
[2018-07-06 13:35] LABS: Total Protein 6.9 g/dL (6.4-8.2)
[2018-07-06 13:36] LABS: Alkaline Phosphatase 58 U/L (45-117)
--- NOTE | 2018-07-06 15:08 | CT ---
EXAM DATE: 07/06/2018 2:44 PM EDT AGE/SEX: 82 years / Female INDICATIONS: Fell last night. Lower back pain. CLINICAL DATA: This is the patient's initial encounter. Patient reports that signs and symptoms have been present for 2 days and indicates a pain score of 4/10. MEDICAL/SURGICAL HISTORY: Hypertension. Ovarian cancer. Hysterectomy. Thyroidectomy. RADIATION DOSE: 11.52 CTDI (mGy) COMPARISON: POI, CT ABDOMEN AND PELVIS W/ CONTRAST, 04/17/2017. . TECHNIQUE: Multiple contiguous axial images were obtained through the abdomen. Images were obtained using multiple row detector helical technique. Using automated exposure control and adjustment of the mA and/or kV according to patient size, radiation dose was kept as low as reasonably achievable to o btain optimal diagnostic quality images. DICOM format image data is available electronically for rev iew and comparison. FINDINGS: Lower Lungs: The visualized lower lungs are clear. Liver: The liver has a homogeneous density without space-occupying lesion. There is no dilation of th e biliary tree. Spleen: Homogeneous density without enlargement. Pancreas: Unremarkable without mass or calcification. Kidneys: Normal in size and shape. No evidence of mass or hydronephrosis. Adrenal Glands: Unremarkable. Aorta: Atherosclerotic changes without aneurysmal dilation. Bowel/Mesentery: The bowel loops are grossly unremarkable. The cecum and sigmoid colon have a normal configuration. Abdominal Wall: Intact. Retroperitoneum: No evidence of adenopathy in the retrocrural, para-aortic, or deep pelvic regions. Bladder: Contours are smooth. Reproductive Organs: No abnormal masses or calcifications seen. Inguinal: The inguinal region is unremarkable without evidence of adenopathy. Bony Structures: Minimal fracture along the anterior vertebral body at L1. This appears acute. Old m oderate compression fracture at L2.. CONCLUSION: 1. Acute fracture along the superior endplate anteriorly at L1 with minimal loss of height. No retro pulsion of posterior fragments. 2. No abdominal visceral injury. 3. Old compression fracture at L2. Electronically signed by: Bill Hernandez MD 07/06/2018 3:07 PM EDT
--- NOTE | 2018-07-06 15:11 | CT ---
EXAM DATE: 07/06/2018 2:53 PM EDT AGE/SEX: 82 years / Female INDICATIONS: Fell last night. Lower back pain. CLINICAL DATA: This is the patient's initial encounter. Patient reports that signs and symptoms have been present for 2 days and indicates a pain score of 5/10. MEDICAL/SURGICAL HISTORY: Hypertension. Ovarian cancer. Thyroidectomy. Hysterectomy. RADIATION DOSE: . CTDI (mGy) ; Reconstructed from previous dataset, no dose COMPARISON: No prior exams available for comparison. TECHNIQUE: Contiguous axial images were acquired with a multirow detector CT scanner without contras t. Multiplanar reconstructions in the sagittal and coronal plane were also performed. Using automate d exposure control and adjustment of the mA and/or kV according to patient size, radiation dose was k ept as low as reasonably achievable to obtain optimal diagnostic quality images. DICOM format image data is available electronically for review and comparison. FINDINGS: Vertebrae: There is fracture along the superior endplate more laterally along the anterior aspect of L1 vertebral body. Minimal loss of height. No retropulsion of posterior fragments. Old moderate comp ression fracture at L2. There are degenerative changes including vacuum phenomenon at L2-3. Degenerat aki disc disease at L5-S1 as well. There is also mild loss of height of T11 vertebral body. Alignment: Normal. No subluxation. T12-L1: The thecal sac has a normal diameter. No evidence of disc bulge or protrusion. The neural foramina are patent bilaterally. L1-L2: Moderate broad-based protrusion abuts the ventral thecal sac and causes mild canal stenosis. Mild facet arthropathy. Mild neural foraminal narrowing bilaterally. L2-L3: Moderate broad-based protrusion abuts the ventral thecal sac and causes mild canal stenosis. Mild facet arthropathy. Mild neural foraminal narrowing bilaterally. L3-L4: Moderate broad-based protrusion abuts the ventral thecal sac and causes mild canal stenosis. Mild facet arthropathy. Mild neural foraminal narrowing bilaterally. L4-L5: Moderate broad-based protrusion abuts the ventral thecal sac and causes without canal stenosi s. Mild facet arthropathy. Mild neural foraminal narrowing bilaterally. L5-S1: Mild broad-based disc bulge abuts the ventral thecal sac without canal stenosis. The neural foramina are patent bilaterally. CONCLUSION: 1. No acute superior endplate compression fracture at L1 without significant loss of height. No retr opulsion of posterior fragments. 2. Old moderate compression fracture. 3. Multilevel disc bulges/protrusions. Electronically signed by: Bill Hernandez MD 07/06/2018 3:10 PM EDT
[2018-07-06 15:45] LABS: Bilirubin,Urine Negative (Negative); Clarity,Urine Slightly Cloudy (Clear); Color,Urine Yellow (Yellw/Straw); Glucose,Urine (UA) Negative (Negative); Leukocyte Esterase,Urine Small (Negative); Nitrite,Urine Negative (Negative); Specific Gravity,Urine 1.015 (1.002-1.035)
[2018-07-06 15:51] LABS: RBC,Urine 0-3 /hpf (0-3)
[2018-07-06 15:52] LABS: Bacteria,Urine Many /hpf; Squamous Epithelial Cell,Urine 0-5 /hpf (0-5)
[2018-07-06] MEDS ORDERED: Morphine Sulfate Inj 2 MG/ML Vial IV.PUSH STA (16:18)
--- NOTE | 2018-07-06 17:13 | P.HP ---
History of Present Illness Service: [facility] Adult med Primary Care Physician: Abbi Turcios MD Chief Complaint: back pain, inability to ambulate History of Present Illness: 82 y.o. WF presents with complaint of multiple falls over last few months. 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 The patient states that over the past week she has fallen from a standing height 3-4 times because "my knees buckled under me". Yesterday, she was walking in her driveway when she again fell, landing on her back. Denies head injury or LOC, neck pain, chest or abdominal pain. She uses a walker at all times and states that she has severe "sharp" lower back pain which is constant, radiating into both legs, worse with movement, and today it is so severe that she is unable to ambulate even with a walker since most recent fall. Denies lower extremity weakness, change in bowel / bladder habits, or saddle anesthesia. She reports 6 months of bilateral hand and foot numbness which she was told was due to chemo a/w ovarian CA. 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 Review of Systems Constitutional: Reports body ache(s), Reports fatigue, Reports lack of energy, Reports weakness Eyes: Denies blind spots, Denies blurry vision, Denies bulging eyes, Denies change in vision, Denies double vision, Denies discharge, Denies dry eyes, Denies floaters, Denies irritation, Denies itchy eyes, Denies loss of vision, Denies pain, Denies requires corrective lenses, Denies sensitivity to light, Denies other Ears, Nose, Mouth, and Throat: Denies abnormal hearing, Denies bleeding gums, Denies bad breath, Denies change in voice, Denies dental pain, Denies difficulty swallowing, Denies dizziness, Denies dry mouth, Denies ear discharge , Denies ear pain, Denies facial pain, Denies headache(s), Denies hearing loss, Denies hoarseness, Denies lip swelling, Denies nosebleed, Denies mouth lesions, Denies mouth pain, Denies nasal congestion, Denies nasal discharge, Denies nasal obstruction, Denies nasal trauma, Denies neck lump, Denies neck pain, Denies nose pain, Denies pain with swallowing, Denies poor balance, Denies post nasal drip, Denies ringing in the ears, Denies sinus pain, Denies sinus pressure , Denies sore throat, Denies throat swelling, Denies tongue swelling, Denies other Cardiovascular: Reports lightheadedness, Reports shortness of breath with activity, Denies chest pain, Denies chest pain at rest, Denies chest pain with activity, Denies excessive sweating, Denies fainting, Denies fast heart rate, Denies foot swelling, Denies generalized swelling, Denies irregular heart rhythm , Denies leg pain with activity, Denies leg sores, Denies leg swelling, Denies radiating jaw, neck or arm pain, Denies rapid, pounding, or irregular heartbeat , Denies shortness of breath, Denies shortness of breath when lying down, Denies shortness of breath causing sudden awakening, Denies slow heart rate, Denies other Respiratory: Reports shortness of breath, Reports shortness of breath with activity, Denies change in phlegm color, Denies chest congestion, Denies cough, Denies coughing up blood, Denies excessive phlegm production, Denies pain on inspiration, Denies pain with cough, Denies snoring, Denies stridor, Denies wheezing, Denies other Gastrointestinal: Reports nausea, Denies abdominal pain, Denies belching, Denies black, tarry stools, Denies bloating, Denies bright, red blood in stools , Denies change in bowel habits, Denies constant urge to pass stool, Denies change in stools, Denies coffee ground vomit, Denies constipation, Denies cramping, Denies difficulty swallowing, Denies excessive passing of gas, Denies feeling full early, Denies heartburn, Denies incontinent of stools, Denies loose stools, Denies pain with swallowing, Denies vomiting, Denies vomiting blood, Denies other Musculoskeletal: Reports abnormal walking, Reports back pain, Reports joint pain , Reports muscle weakness, Reports numbness, Reports tingling Neurologic: Reports abnormal walking, Reports burning sensations, Reports dizziness, Reports frequent falls, Reports numbness, Reports radiating pain, Reports sensory deficit, Reports tingling, Reports tingling/numbness/burning sensations, Reports unsteadiness, Reports weakness, Denies abnormal hearing, Denies abnormal movements, Denies abnormal speech, Denies behavioral changes, Denies confusion, Denies fainting, Denies headache(s), Denies lack of coordination, Denies localized weakness, Denies loss of vision, Denies memory loss, Denies other visual disturbances, Denies restless legs, Denies convulsions , Denies seizure-like activity, Denies tremor(s), Denies other Hematologic/Lymphatic: Reports easy bruising PMFSH - History History Provided By: Patient - Medical History Medical History: Medical History (Last Updated 07/06/18 @ 17:06 by Richard Bustamante MD, PhD) COPD (chronic obstructive pulmonary disease) (Acute) Hypertension (Acute) Onset Date: ~12/2017 Ovarian cancer (Acute) CKD (chronic kidney disease) stage 3, GFR 30-59 ml/min H/O thyroidectomy H/O: hysterectomy Osteopenia - Surgical History Surgical History: Surgical History (Last Updated 07/06/18 @ 17:08 by Richard Bustamante MD, PhD) H/O breast biopsy H/O hysterectomy with oophorectomy Onset Date: ~12/2017 History of tonsillectomy and adenoidectomy - Family History Family History: Family History (Last Updated 07/06/18 @ 17:09 by Richard Bustamante MD, PhD) Other Lymphoma Pancreatic cancer - Tobacco History Tobacco Use In Past 30 Days: No Smoking Status: Former smoker Tobacco Type: Cigarettes Years Smoked: 20 Number of Pack Years (if former smoker): 20 Smoking End Date: - Alcohol History How Often Do You Have a Drink Containing Alcohol: 4 or more times a week ( Drinks one beer or glass of wine per day depending on what she is eating) - Substance Use History Substance History: No History of Abuse - Travel History Recent Travel Out of the Country Within the Last 8 Weeks: No - Immunization History Tetanus Immunization: Unsure Hx Influenza Vaccine This Season: Yes Medications and Allergies Allergies Allergy/AdvReac Type Severity Reaction Status Date / Time penicillin G Allergy Mild Hives Verified 07/06/18 12:36 Home Medications Medication Instructions Recorded Confirmed Type albuterol sulfate 4 mg PO QID 07/06/18 07/06/18 History amlodipine 10 mg PO DAILY 07/06/18 07/06/18 History atenolol 50 mg PO DAILY 07/06/18 07/06/18 History biotin 5,000 mcg PO DAILY 07/06/18 07/06/18 History cholecalciferol (vitamin D3) 400 unit PO DAILY 07/06/18 07/06/18 History [Vitamin D3] cinnamon bark [Cinnamon] 1 tab PO DAILY 07/06/18 07/06/18 History garlic 2,000 mg PO DAILY 07/06/18 07/06/18 History multivitamin [Multiple Vitamins] 1 tab PO DAILY 07/06/18 07/06/18 History omega-3 fatty acids-fish oil [Fish 1 cap PO DAILY 07/06/18 07/06/18 History Oil] pravastatin 40 mg PO DAILY 07/06/18 07/06/18 History triamterene-hydrochlorothiazid 1 tab PO DAILY 07/06/18 07/06/18 History Exam Vital signs: Vital Signs 07/06/18 12:30 07/06/18 14:41 07/06/18 16:41 Temperature 98.1 F Pulse Rate 70 67 67 Respiratory Rate 18 16 16 Blood Pressure 129/77 124/75 150/75 H Pulse Oximetry 95 95 Intake & Output 07/05/18 07/06/18 07/06/18 18:59 06:59 18:59 Intake Total 1000 / 1000 Balance 1000 / 1000 Weight 72.8 kg Intake: IV 1000 / 1000 NS Inj 1,000 ML @ Wide Open IV. 1000 / 1000 SIG BOLUS ONE Rx#:[id number] Narrative: GENERAL: Pleasant, no acute distress, cooperative to exam. SKIN: Warm and dry. Few areas of purpura on forearms. HEAD: Atraumatic. Normocephalic. Alopecia noted. EYES: Pupils equal and round. No scleral icterus. No injection or drainage. ENT: No nasal bleeding or discharge. Mucous membranes pink and moist. NECK: Trachea midline. No JVD. CARDIOVASCULAR: Regular rate and rhythm. No significant murmur. RESPIRATORY: No accessory muscle use. Clear to auscultation. Breath sounds equal bilaterally. GASTROINTESTINAL: Abdomen soft, non-tender, nondistended. Hepatic and splenic margins not palpable. Bowel sounds normal. MUSCULOSKELETAL: Extremities without clubbing, cyanosis, or edema. No obvious deformities. Tenderness to palpation over her lower thoracic and upper lumbar spine. NEUROLOGICAL: Awake and alert. No obvious cranial nerve deficits. Motor grossly within normal limits. Five out of 5 muscle strength in the arms and legs , however lower extremity range of motion limited due to pain in back. Normal speech. Positive straight leg test on the left. Sensation diminished in distal upper and lower extremities. PSYCHIATRIC: Appropriate mood and affect; insight and judgment normal. Results - Labs CBC & Chem 7: 07/06/18 13:05 07/06/18 13:05 Labs: Laboratory Results - last 24 hr 07/06/18 07/06/18 07/06/18 13:05 13:05 13:05 CBC w Diff Auto diff final WBC 9.7 RBC 3.78 L Hgb 13.1 Hct 39.3 MCV 104.0 H MCH 34.7 H MCHC 33.4 RDW 12.1 Plt Count 158 MPV 7.9 Neut % (Auto) 75.0 H Lymph % (Auto) 15.9 [place] % (Auto) 7.8 Eos % (Auto) 1.0 Baso % (Auto) 0.3 Neut # (Auto) 7.3 Lymph # (Auto) 1.5 [place] # (Auto) 0.8 Eos # (Auto) 0.1 Baso # (Auto) 0.0 WBC Differential . Differential Comment . Sodium 139 Potassium 3.6 Chloride 104 Carbon Dioxide 27.5 Anion Gap 8 BUN 12 Creatinine 0.58 Estimated GFR Greater than 89 Random Glucose 101 Calcium 8.9 Total Bilirubin 1.5 H AST 20 ALT 18 Alkaline Phosphatase 58 Troponin I Less than 0.02 L Total Protein 6.9 Albumin 3.4 Urine Color Urine Clarity Urine pH Ur Specific [place] Urine Protein Urine Glucose (UA) Urine Ketones Urine Occult Blood Urine Nitrate Urine Bilirubin Urine Urobilinogen Ur Leukocyte Esterase Urine RBC Urine WBC Ur Squamous Epith Cells Urine Bacteria Micro UA Comment Urine Culture Comments 07/06/18 15:25 CBC w Diff WBC RBC Hgb Hct MCV MCH MCHC RDW Plt Count MPV Neut % (Auto) Lymph % (Auto) [place] % (Auto) Eos % (Auto) Baso % (Auto) Neut # (Auto) Lymph # (Auto) [place] # (Auto) Eos # (Auto) Baso # (Auto) WBC Differential Differential Comment Sodium Potassium Chloride Carbon Dioxide Anion Gap BUN Creatinine Estimated GFR Random Glucose Calcium Total Bilirubin AST ALT Alkaline Phosphatase Troponin I Total Protein Albumin Urine Color Yellow Urine Clarity Slightly cloudy Urine pH 6.0 Ur Specific [place] 1.015 Urine Protein Negative Urine Glucose (UA) Negative Urine Ketones Trace H Urine Occult Blood Negative Urine Nitrate Negative Urine Bilirubin Negative Urine Urobilinogen 1.0 Ur Leukocyte Esterase Small H Urine RBC 0-3 Urine WBC 9-20 H Ur Squamous Epith Cells 0-5 Urine Bacteria Many H Micro UA Comment Culture indicated Urine Culture Comments Culture indicated - Imaging Impressions Abdomen/Pelvis CT 07/06/18 12:44 CONCLUSION: 1. Acute fracture along the superior endplate anteriorly at L1 with minimal loss of height. No retropulsion of posterior fragments. 2. No abdominal visceral injury. 3. Old compression fracture at L2. Lumbar Spine CT 07/06/18 12:44 CONCLUSION: 1. No acute superior endplate compression fracture at L1 without significant loss of height. No retropulsion of posterior fragments. 2. Old moderate compression fracture. 3. Multilevel disc bulges/protrusions. Caprini VTE Risk Assessment Caprini VTE Risk Assessment: Moderate/High Risk (score >= 2) Caprini Risk Assessment Model: Point Value = 1 Point Value = 2 Point Value = 3 Point Value = 5 Age 41-60 Minor surgery BMI > 25 kg/m2 Swollen legs Varicose veins or History of unexplained or recurrent spontaneous Oral contraceptives or hormone replacement Sepsis (< 1 month) Serious lung disease, including pneumonia (< 1 month) Abnormal pulmonary function Acute myocardial infarction Congestive heart failure (< 1 month) History of inflammatory bowel disease Medical patient at bed rest Age 61-74 Arthroscopic surgery Major open surgery (> 45 min) Laparoscopic surgery (> 45 min) Malignancy Confined to bed (> 72 hours) Immobilizing plaster cast Central venous access Age >= 75 History of VTE Family history of VTE Factor V Leiden Prothrombin [id number] Lupus anticoagulant Anticardiolipin antibodies Elevated serum homocysteine Heparin-induced thrombocytopenia Other congenital or acquired thrombophilia Stroke (< 1 month) Elective arthroplasty Hip, pelvis, or leg fracture Acute spinal cord injury (< 1 month) Prophylaxis Regimen: Total Risk Factor Score Risk Level Prophylaxis Regimen 0-1 Low Early ambulation 2 Moderate Order ONE of the following: *Sequential Compression Device (SCD) *Heparin 5000 units SQ BID 3-4 Higher Order ONE of the following medications: *Heparin 5000 units SQ TID *Enoxaparin/Lovenox 40 mg SQ daily (WT < 150 kg, CrCl > 30 mL/min) *Enoxaparin/Lovenox 30 mg SQ daily (WT < 150 kg, CrCl > 10-29 mL/min) *Enoxaparin/Lovenox 30 mg SQ BID (WT < 150 kg, CrCl > 30 mL/min) AND/OR *Sequential Compression Device (SCD) 5 or more Highest Order ONE of the following medications: *Heparin 5000 units SQ TID (Preferred with Epidurals) *Enoxaparin/Lovenox 40 mg SQ daily (WT < 150 kg, CrCl > 30 mL/min) *Enoxaparin/Lovenox 30 mg SQ daily (WT < 150 kg, CrCl > 10-29 mL/min) *Enoxaparin/Lovenox 30 mg SQ BID (WT < 150 kg, CrCl > 30 mL/min) AND *Sequential Compression Device (SCD) Assessment and Plan - Assessment (1) Lumbar compression fracture Code(s): S32.000A - Wedge compression fracture of unspecified lumbar vertebra, initial encounter for closed fracture Status: Acute Plan: Likely source of pain which is prohibiting her from ambulating. I had Dr Carter review CT Lspine and he believes she may benefit from kyphoplasty. I spoke with pt in ER and explained procedure. She is agreeable to IR consult and possible kyphoplasty in hopes that it will help her be able to ambulate with her walker again. Will transfer pt to [facility] for IR eval. Will provide pain meds in interim and NPO after midnight. (2) Compression fracture Status: Chronic Plan: pain control. Address acute frx as above. (3) Hypertension Code(s): I10 - Essential (primary) hypertension Status: Acute Onset Date: ~ 12/2017 Plan: continue meds as BP permits. Control pain. (4) Ovarian cancer Code(s): C56.9 - Malignant neoplasm of unspecified ovary Status: Acute Plan: continue with outpt providers. Reportedly has neuropathy secondary to chemotx (5) COPD (chronic obstructive pulmonary disease) Code(s): J44.9 - Chronic obstructive pulmonary disease, unspecified Status: Acute Plan: duoneb as needed. 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 She has had outpatient labs done. We will try low-dose Neurontin. Discussed risks benefits side effects of medication. It may not be very useful given underlying etiology however there is not much downside to trying it. - Plan Code Status: Full Discussed Condition With: Pt, ER provider, Dr Carter (1) Lumbar compression fracture Qualifiers: Lumbar vertebra fracture level: L1 Fracture type: closed (3) Hypertension Qualifiers: Hypertension type: essential hypertension Qualified Code(s): I10 - Essential (primary) hypertension
[2018-07-06 17:51] LABS: Activated Partial Thrombo Time 25.8 sec (24.3-30.1); Prothrombin Time 10.3 sec (9.8-11.6)
[2018-07-06] MEDS: Morphine Inj 4 MG/ML Vial IV.PUSH PRN (20:21)
[2018-07-06] MEDS: Gabapentin 100 MG Capsule PO SCH (20:21)
[2018-07-07] MEDS: Gabapentin 100 MG Capsule PO SCH ×3 (08:22→18:52)
[2018-07-07] MEDS: amLODIPine 10 MG Tablet PO SCH (08:23)
[2018-07-07] MEDS: Atenolol 50 MG Tablet PO SCH (08:23)
[2018-07-07] MEDS: Morphine Inj 4 MG/ML Vial IV.PUSH PRN (08:24)
--- NOTE | 2018-07-07 09:04 | P.PNIM ---
Subjective Interval history: Follow up compression fracture Patient resting in bed c/o back pain plan for kyphoplasty with IR today Physical Exam Vital signs: Vital Signs 07/06/18 12:30 07/06/18 14:41 07/06/18 16:41 Temperature 98.1 F Pulse Rate 70 67 67 Respiratory Rate 18 16 16 Blood Pressure 129/77 124/75 150/75 H Pulse Oximetry 95 95 07/06/18 21:38 07/07/18 00:00 07/07/18 07:53 Temperature 96.2 F L 98.7 F 98.0 F Pulse Rate 61 64 74 Respiratory Rate 18 17 16 Blood Pressure 129/64 127/65 166/74 H Pulse Oximetry 92 L 93 L 92 L Intake & Output 07/06/18 07/07/18 07/07/18 18:59 06:59 18:59 Intake Total 1000 / 1000 100 / 100 Balance 1000 / 1000 100 / 100 Weight 72.8 kg Intake: IV 1000 / 1000 100 / 100 NS Inj 1,000 ML @ Wide Open IV. 1000 / 1000 SIG BOLUS ONE Rx#:[id number] Rocephin Inj 1,000 MG In NS Inj 100 / 100 100 ML @ 200 mls/hr IV.SIG Q24H NUNO Rx#:[id number] Other: Date of Last Bowel Movement 07/05/18 Narrative: GENERAL: This is a well-nourished, well-developed patient, appears uncomfortable but in no acute distress. CARDIOVASCULAR: Regular rate and rhythm RESPIRATORY: Clear to auscultation. Breath sounds equal bilaterally. GASTROINTESTINAL: Abdomen soft, non-tender, nondistended. Normal active bowel sounds MUSCULOSKELETAL: Extremities without clubbing, cyanosis, or edema. Tenderness to palpation over her lower thoracic and upper lumbar spine. NEUROLOGICAL: Awake and alert. No obvious cranial nerve deficits. Motor grossly within normal limits. Five out of 5 muscle strength in the arms and legs , however lower extremity range of motion limited due to pain in back. Normal speech. Positive straight leg test on the left. Sensation diminished in distal upper and lower extremities. - Urinary Catheter Management Female External Cath placed during this visit: yes Reason for continuing: Not indwelling catheter Insertion date: 07/07/18 Insertion time: 00:00 Results - Labs CBC & Chem 7: 07/06/18 13:05 07/06/18 13:05 Laboratory Results - last 24 hr 07/06/18 07/06/18 07/06/18 13:05 13:05 13:05 CBC w Diff Auto diff final WBC 9.7 RBC 3.78 L Hgb 13.1 Hct 39.3 MCV 104.0 H MCH 34.7 H MCHC 33.4 RDW 12.1 Plt Count 158 MPV 7.9 Neut % (Auto) 75.0 H Lymph % (Auto) 15.9 [place] % (Auto) 7.8 Eos % (Auto) 1.0 Baso % (Auto) 0.3 Neut # (Auto) 7.3 Lymph # (Auto) 1.5 [place] # (Auto) 0.8 Eos # (Auto) 0.1 Baso # (Auto) 0.0 WBC Differential . Differential Comment . PT INR APTT Sodium 139 Potassium 3.6 Chloride 104 Carbon Dioxide 27.5 Anion Gap 8 BUN 12 Creatinine 0.58 Estimated GFR Greater than 89 Random Glucose 101 Calcium 8.9 Total Bilirubin 1.5 H AST 20 ALT 18 Alkaline Phosphatase 58 Troponin I Less than 0.02 L Total Protein 6.9 Albumin 3.4 Urine Color Urine Clarity Urine pH Ur Specific [place] Urine Protein Urine Glucose (UA) Urine Ketones Urine Occult Blood Urine Nitrate Urine Bilirubin Urine Urobilinogen Ur Leukocyte Esterase Urine RBC Urine WBC Ur Squamous Epith Cells Urine Bacteria Micro UA Comment Urine Culture Comments 07/06/18 07/06/18 15:25 17:25 CBC w Diff WBC RBC Hgb Hct MCV MCH MCHC RDW Plt Count MPV Neut % (Auto) Lymph % (Auto) [place] % (Auto) Eos % (Auto) Baso % (Auto) Neut # (Auto) Lymph # (Auto) [place] # (Auto) Eos # (Auto) Baso # (Auto) WBC Differential Differential Comment PT 10.3 INR 1.0 APTT 25.8 Sodium Potassium Chloride Carbon Dioxide Anion Gap BUN Creatinine Estimated GFR Random Glucose Calcium Total Bilirubin AST ALT Alkaline Phosphatase Troponin I Total Protein Albumin Urine Color Yellow Urine Clarity Slightly cloudy Urine pH 6.0 Ur Specific [place] 1.015 Urine Protein Negative Urine Glucose (UA) Negative Urine Ketones Trace H Urine Occult Blood Negative Urine Nitrate Negative Urine Bilirubin Negative Urine Urobilinogen 1.0 Ur Leukocyte Esterase Small H Urine RBC 0-3 Urine WBC 9-20 H Ur Squamous Epith Cells 0-5 Urine Bacteria Many H Micro UA Comment Culture indicated Urine Culture Comments Culture indicated - Imaging Impressions Abdomen/Pelvis CT 07/06/18 12:44 CONCLUSION: 1. Acute fracture along the superior endplate anteriorly at L1 with minimal loss of height. No retropulsion of posterior fragments. 2. No abdominal visceral injury. 3. Old compression fracture at L2. Lumbar Spine CT 07/06/18 12:44 CONCLUSION: 1. No acute superior endplate compression fracture at L1 without significant loss of height. No retropulsion of posterior fragments. 2. Old moderate compression fracture. 3. Multilevel disc bulges/protrusions. Assessment and Plan - Assessment (1) Lumbar compression fracture Code(s): S32.000A - Wedge compression fracture of unspecified lumbar vertebra, initial encounter for closed fracture Status: Acute Plan: Lumbar compression fracture Likely source of pain which is prohibiting her from ambulating. Dr Carter reviewed CT L spine and he believes she may benefit from kyphoplasty. Dr Bustamante spoke with pt in ER and explained procedure. She is agreeable to IR consult and possible kyphoplasty in hopes that it will help her be able to ambulate with her walker again. Patient transferred to [facility] for IR eval. Continue Morphine 4 mg IV Q4H as needed for pain. NPO after midnight. Start IVFs for hydration Hypertension continue meds as BP permits. Control pain. Ovarian cancer continue with outpt providers. Reportedly has neuropathy secondary to chemotx COPD (chronic obstructive pulmonary disease) duoneb as needed. Peripheral neuropathy due to chemotherapy Continue outpatient neurology follow-up. She has had outpatient labs done. Started low-dose Neurontin 100 mg PO TID. Discussed risks benefits side effects of medication. DVT prophylaxis with SCDs The exam, history, and the medical decision-making described in the above note were completed with the assistance of the mid-level provider. I reviewed and agree with the findings presented. I attest that I had a [id number] encounter with the patient on the same day, and personally performed and documented my assessment and findings in the medical record. (1) Lumbar compression fracture Qualifiers: Lumbar vertebra fracture level: L1 Fracture type: closed
[2018-07-07] MEDS: Sod Chloride 0.9% Inj 1,000 ML IV.CONT SCH ×2 (10:27→18:53)
[2018-07-07] MEDS ORDERED: fentaNYL Citrate Inj 250 MCG/5 ML Ampul ONE (12:55)
[2018-07-07] MEDS ORDERED: Bupivacaine PF 0.75% Inj 30 ML Vial ONE (14:37)
--- NOTE | 2018-07-07 15:08 | P.RAD ---
Post Procedure Progress Note - Pre Procedure Diagnosis (1) Acute lumbar back pain (2) Lumbar compression fracture - Post Procedure Diagnosis (1) Compression fracture (2) Lumbar compression fracture (3) Acute lumbar back pain - Procedure Information Procedure Date: 07/07/18 Supervising Radiologist: Yoseph Thayer Jr, MD Estimated blood loss (mL): 0 Anesthesia: Conscious Sedation - Plan of Activity Patient to Unit: [facility] Patient Condition: Good See PACS Report for procedural detail/treatment. Spinal Procedure Kyphoplasty L1 Total Bone Cement (CCs): 5 Findings: Succesful L1 kyphoplasty. Old compr fx of L2 noted.
--- NOTE | 2018-07-07 15:55 | IR ---
EXAM DATE: 07/07/2018 3:36 PM EDT AGE/SEX: 82 years / Female INDICATIONS: Patient presents with compression fracture of the first lumbar vertebrae post fall in n eed of Kyphoplasty. Patient has an acute L1 compression fracture with an old chronic L2 compression f racture. CLINICAL DATA: This is the patient's initial encounter. Patient reports that signs and symptoms have been present for 1 day and indicates a pain score of 8/10. MEDICAL/SURGICAL HISTORY: Chronic obstructive pulmonary disease. Compression fracture L1, HTN, Ovarian cancer, CKD, Osteopenia. Breast biopsy. Hysterectomy. Tonsillectomy. Thyroidectomy, Adeno idectomy, Oophorectomy. COMPARISON: No prior exams available for comparison. FLUORO TIME (min): 9.6 IMAGE SERIES: 8 ACCESS SITE: L1 SEDATION TIME (min): 60 MEDICATION(S): 1.5mg midazolam (Versed) IV 75mcg fentanyl (Sublimaze) IV 1g Vancomycin IV Prophylactic antibiotics were administered with appropriate pre-procedure timing. Intra-procedural an tibiotics were given as prescribed above. DEVICE(S): 5cc AvaMax bone cement . . PROCEDURE: 1. Fluoroscopically-guided kyphoplasty. 2. Conscious sedation with continuous EKG and oximetry monitoring. The risks, benefits and alternatives to the procedure were explained and verbal and written consent w as obtained. The site was prepped in sterile fashion. Full sterile technique was used, including ca p, mask, sterile gloves and gown and a large sterile sheet. Hand hygiene and 2% chlorhexidine and/or betadine/alcohol prep was utilized per protocol for cutaneous antisepsis. The skin and subcutaneous tissues were infiltrated with local anesthetic solution. With fluoroscopic guidance via a left unilateral transpedicular approach access was gained to the L1 vertebral body. Kyphoplasty was performed with cavity creation utilizing a balloon. 3 mL's was insti lled into the balloon under fluoroscopic control. 5 mL of cement was placed into the L1 vertebral bod y under fluoroscopic control. Post procedure images demonstrate cement confined to the vertebral bod y. Conscious sedation was performed with the prescribed dosages and duration as above in the presence of an independent trained radiology nurse to assist in the monitoring of the patient. EKG and oximetry remained stable throughout the procedure. The patient tolerated the procedure well and there were n o complications. The patient was sent to post anesthesia recovery in stable condition. CONCLUSION: 1. Uncomplicated L1 kyphoplasty as above. 2. Stable chronic L2 compression fracture. Electronically signed by: Yoseph Thayer MD 07/07/2018 3:53 PM EDT
--- NOTE | 2018-07-07 23:42 | ECG ---
Date Performed: 07/06/2018 Time Performed: 13:08:24 PTAGE: 82 years EKG: Sinus rhythm POSSIBLE INFERIOR MYOCARDIAL INFARCTION BORDERLINE ECG PREVIOUS TRACING : 11/27/2017 11.05 Since the previous tracing, no significant change noted DOCTOR: Paul Wyatt Interpretating Date/Time 07/07/2018 23:41:12
--- NOTE | 2018-07-08 08:35 | P.PNIM ---
Subjective Interval history: Pt reports that her pain is slightly better controlled today She has not had a BM in 3 days but states that she has not been eating much at all +flatus Denies any nausea/vomiting or abd pain Physical Exam Vital signs: Vital Signs 07/07/18 08:30 07/07/18 11:46 07/07/18 15:15 Temperature 97.6 F 97.5 F L Pulse Rate 66 68 Respiratory Rate 16 16 18 Blood Pressure 118/59 L 128/76 Pulse Oximetry 92 L 93 L 07/07/18 15:30 07/07/18 16:00 07/07/18 16:18 Temperature 97.8 F Pulse Rate 63 62 66 Respiratory Rate 16 18 16 Blood Pressure 132/62 115/77 156/72 H Pulse Oximetry 95 94 L 99 07/07/18 20:00 07/08/18 00:00 Temperature 97.7 F 96.6 F L Pulse Rate 71 66 Respiratory Rate 18 18 Blood Pressure 120/57 L 107/62 Pulse Oximetry 94 L 94 L Intake & Output 07/07/18 07/08/18 07/08/18 18:59 06:59 18:59 Intake Total 1000 / 1000 580 / 580 Output Total 650 / 650 1000 / 1000 Balance 350 / 350 -420 / -420 Weight 72.8 kg Intake: IV 1000 / 1000 100 / 100 NS Inj 1,000 ML @ 42 mls/hr IV. 1000 / 1000 CONT .[id number] [facility] Rx#:[id number] Rocephin Inj 1,000 MG In NS Inj 100 / 100 100 ML @ 200 mls/hr IV.SIG Q24H [facility] Rx#:[id number] Oral 480 / 480 Output: Urine 650 / 650 1000 / 1000 Narrative: GENERAL: This is a well-nourished, well-developed patient, appears uncomfortable but in no acute distress. CARDIO: Regular rate and rhythm RESP: Clear to auscultation. Breath sounds equal bilaterally. ABD: +BS, soft, non-tender, nondistended. Normal active bowel sounds EXT: No edema. NEURO: Awake and alert. No obvious cranial nerve deficits. Motor grossly within normal limits. Five out of 5 muscle strength in the arms and legs, however lower extremity range of motion limited due to pain in back. Normal speech. Sensation diminished in distal upper and lower extremities. - Urinary Catheter Management Female External Cath placed during this visit: yes Reason for continuing: Not indwelling catheter Insertion date: 07/07/18 Insertion time: 00:00 Results - Labs CBC & Chem 7: 07/06/18 13:05 07/06/18 13:05 Laboratory Results - last 24 hr 07/06/18 15:25 Urine Color Yellow Urine Clarity Slightly cloudy Urine pH 6.0 Ur Specific [place] 1.015 Urine Protein Negative Urine Glucose (UA) Negative Urine Ketones Trace H Urine Occult Blood Negative Urine Nitrate Negative Urine Bilirubin Negative Urine Urobilinogen 1.0 Ur Leukocyte Esterase Small H Urine RBC 0-3 Urine WBC 9-20 H Ur Squamous Epith Cells 0-5 Urine Bacteria Many H Micro UA Comment Culture indicated Urine Culture Comments Culture indicated Microbiology 07/06/18 15:25 Clean Catch Urine Urine Culture - Final Escherichia coli - Imaging Impressions Vertebroplasty 07/07/18 00:00 CONCLUSION: 1. Uncomplicated L1 kyphoplasty as above. 2. Stable chronic L2 compression fracture. Assessment and Plan - Assessment (1) Lumbar compression fracture Code(s): S32.000A - Wedge compression fracture of unspecified lumbar vertebra, initial encounter for closed fracture Status: Acute Plan: Lumbar compression fracture - Pt is an 82 y/o WF with HTN, COPD, chemo induced peripheral neuropathy, and hx of ovarian cancer who was admitted to [facility] on 07/06/18 with complaints of multiple falls over last few months and had fallen onto her back with increased pain in her lower back prior to admission. - Likely source of pain which is prohibiting her from ambulating. - CT Lumbar spine (07/06/18) --> A fracture along the superior endplate more laterally along the anterior aspect of L1 without significant loss of height. No retropulsion of posterior fragments and multilevel disc bulges/protrusions - Dr Carter reviewed CT L spine and he believed she may benefit from kyphoplasty. - pt underwent L1 kyphoplasty on 07/07/18 in hopes that it will help her be able to ambulate with her walker again. - Pain control PRN - PT to evaluation today - Pt planned for discharge to SNF likely later today Hypertension - Continue Norvasc as BP permits. Control pain. - Hold Triamterene/HCTZ at discharge, this may need to be resumed as she gets further from this hospitalization. Ovarian cancer - Continue with outpt providers. 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 Peripheral neuropathy due to chemotherapy - Continue outpatient neurology follow-up. - She has had outpatient labs done. - Started low-dose Neurontin 100 mg PO TID. Discussed risks benefits side effects of medication. DVT prophylaxis with SCDs The exam, history, and the medical decision-making described in the above note were completed with the assistance of the mid-level provider. I reviewed and agree with the findings presented. I attest that I had a [id number] encounter with the patient on the same day, and personally performed and documented my assessment and findings in the medical record. (1) Lumbar compression fracture Qualifiers: Lumbar vertebra fracture level: L1 Fracture type: closed
[2018-07-08] MEDS ORDERED: Ciprofloxacin 500 MG Tablet PO SCH (09:00)
[2018-07-08] MEDS: Atenolol 50 MG Tablet PO SCH (09:09)
[2018-07-08] MEDS: amLODIPine 10 MG Tablet PO SCH (09:09)
[2018-07-08] MEDS: Gabapentin 100 MG Capsule PO SCH ×3 (09:10→17:05)
[2018-07-08] MEDS ORDERED: Heparin Central Flush 100 UNIT/ML 5 ML Vial IV.FLUSH PRN (16:58)
== END 2018-07-08 18:18 ==
LOC: NEPFCDU 12:16 → PHEDA 12:16 → PHED 12:16 → PHEDA 17:42 → PH3 18:07 → NEPFCDU 22:08
PROVIDERS: ADMIT Hospitalist; ATTEND Hospitalist

== ENCOUNTER 2018-09-14 23:15 | Inpatient (IN) ==
[2018-09-14] MEDS ORDERED: Sodium Chlor 0.9% Inj 500 ML IV.SIG ONE (23:34)
[2018-09-15 00:04] LABS: Baso % (Auto) 0.4 % (0.0-2.0); Eos # (Auto) 0.1 th/mm3 (0.0-0.4); Hematocrit 38.9 % (35.0-46.0); Hemoglobin 12.7 gm/dL (11.6-15.3); Lymph # (Auto) 2.5 th/mm3 (1.0-4.8); Lymph % (Auto) 25.7 % (9.0-44.0); Mean Corpuscular HGB Conc 32.6 % (32.0-36.0); Mean Corpuscular Hemoglobin 31.6 pg (27.0-34.0); Mean Platelet Volume 9.4 fL (7.0-11.0); Mono # (Auto) 0.9 th/mm3 (0.0-0.9); Mono % (Auto) 9.5 % (0.0-8.0); Neut # (Auto) 6.1 th/mm3 (1.8-7.7); Neut % (Auto) 63.4 % (16.0-70.0); Platelet Count 206 th/mm3 (150-450); Red Blood Count 4.01 mil/mm3 (4.00-5.30); Red Cell Distribution Width 15.3 % (11.6-17.2); White Blood Count 9.6 th/mm3 (4.0-11.0)
--- NOTE | 2018-09-15 00:15 | XR ---
EXAM DATE: 09/14/2018 11:36 PM EDT AGE/SEX: 82 years / Female INDICATIONS: Shortness of breath today. CLINICAL DATA: This is the patient's initial encounter. Patient reports that signs and symptoms have been present for 1 day and indicates a pain score of 0/10. MEDICAL/SURGICAL HISTORY: . Chronic obstructive pulmonary disease. Compression fracture L1, HTN , Ovarian cancer, CKD, Osteopenia. . Breast biopsy. Hysterectomy. Tonsillectomy. Thyroidectomy, Amy noidectomy, Oophorectomy. COMPARISON: No prior exams available for comparison. FINDINGS: The cardiac silhouette is enlarged in transverse diameter. The lungs are free of acute parenchymal op acity. No effusions are identified. Pabptl-c-Okfo is in place via right internal jugular approach wit h its tip in the superior vena cava. CONCLUSION: Cardiomegaly. No acute pulmonary disease. Electronically signed by: Booker Joshi MD 09/15/2018 12:13 AM EDT
[2018-09-15 00:23] LABS: Activated Partial Thrombo Time 35.8 sec (24.3-30.1); INR 1.5 Ratio; Prothrombin Time 14.9 sec (9.8-11.6)
[2018-09-15] MEDS: dilTIAZem Inj 125 MG in Sodium Chlor 0.9% Inj 100 ML IV.CONT PRN ×2 (00:28→09:33)
--- NOTE | 2018-09-15 00:28 | ED ---
HPI General Chief complaint: Syncope Stated complaint: Medical Time Seen by Provider: 09/14/18 23:20 Source: patient Mode of arrival: EMS Limitations: no limitations History of Present Illness HPI narrative: The patient is a 82 year old female who presents to the [facility] emergency department with a history of shortness of breath that awoke her from sound sleep just prior to arrival. She reports that she went to bed in her usual state of health after administering a nebulizer treatment for her COPD. The patient reports that she then awoke with a sensation of shortness of breath and generalized weakness. She reports that she had very similar symptoms prior to being admitted recently with a pulmonary embolism. She is now on Xarelto and has been taking it as prescribed. The patient reports a recent medical history of being diagnosed with an ovarian cancer status post completion of chemotherapy treatment in March. She reports that her primary care physician is Dr. Rosales Yu and her oncologist is Dr. Ledbetter. She denies having any chest pain associated with the shortness of breath. She denies having any cough or congestion. She denies having any known recent fevers. On review of systems otherwise, the patient denies having any prior history of irregular heartbeat, neck pain, abdominal pain, vomiting, diarrhea, urinary symptoms, or focal neurologic symptoms. Related Data Home Medications Medication Instructions Recorded Confirmed atenolol 25 mg PO DAILY 07/06/18 09/15/18 cholecalciferol (vitamin D3) 400 unit PO DAILY 07/06/18 09/15/18 [Vitamin D3] multivitamin [Multiple Vitamins] 1 tab PO DAILY 07/06/18 09/15/18 omega-3 fatty acids-fish oil [Fish 1 cap PO DAILY 07/06/18 09/15/18 Oil] pravastatin 40 mg PO DAILY 07/06/18 09/15/18 albuterol sulfate 2 mg PO QID 09/15/18 09/15/18 clonazepam 0.5 mg PO HS 09/15/18 09/15/18 docusate sodium [Colace] 100 mg PO DAILY 09/15/18 09/15/18 garlic 1,000 mg PO DAILY 09/15/18 09/15/18 magnesium oxide 400 mg PO BID 09/15/18 09/15/18 rivaroxaban [Xarelto] 20 mg PO DAILY 09/15/18 09/15/18 turmeric root extract 500 mg PO DAILY 09/15/18 09/15/18 vit A,C and Z-dxllny-gpxbhilb 1 tab PO DAILY 09/15/18 09/15/18 [Ocuvite with Lutein] Previous Rx's Medication Instructions Recorded gabapentin 100 mg PO TID cap 07/08/18 hydrocodone-acetaminophen 1 tab PO Q4H PRN #18 tab 07/08/18 ipratropium-albuterol 1 amp NEB Q4HR NEB PRN ml 07/08/18 Allergies Allergy/AdvReac Type Severity Reaction Status Date / Time penicillin G Allergy Mild Hives Verified 07/06/18 12:36 Review of Systems ROS: all other systems reviewed are negative [facility] Medical History Medical History COPD (chronic obstructive pulmonary disease) (Chronic) Hypertension (Chronic ~12/2017) Ovarian cancer (Chronic) CKD (chronic kidney disease) stage 3, GFR 30-59 ml/min (Acute) H/O: hysterectomy (Acute) Osteopenia (Acute) Surgical History Surgical History H/O breast biopsy (Acute) H/O hysterectomy with oophorectomy (Acute ~12/2017) H/O thyroidectomy (Acute) History of tonsillectomy and adenoidectomy (Acute) Family History Family History Other Lymphoma Pancreatic cancer Social History Social History Substance History: No History of Abuse Second Hand Smoke Exposure: No Smoking Status: Former smoker Tobacco Type: Cigarettes Years Smoked: 20 Number of Pack-Years (if former smoker): 20 Smoking End Date: How Often Do You Have a Drink Containing Alcohol: Monthly or less Recent Travel in [facility] within the Last 8 Weeks: No Recent Out of Country Travel within the Last 8 Weeks: No Immunization History Tetanus Immunization: Unsure Exam Const General: cooperative, no acute distress and well developed Nutritional Appearance: well nourished Orientation: alert, awake and oriented x3 HENMT Head: normocephalic and atraumatic Nose: no nasal discharge and no epistaxis Mouth: moist mucous membranes Throat: posterior oropharynx normal and uvula midline Eyes Sclera: normal sclerae Pupils: PERRL EOM: EOM intact bilaterally Neck Neck: no meningeal signs, trachea midline and no JVD Resp Effort & Inspection: no use of accessory muscles Auscultation: clear to auscultation bilaterally Cardio Rate: tachycardic (Irregularly irregular tachycardia with atrial fibrillation noted on the monitor, heart rate in the 150s) Rhythm: abnormal rhythm irregularly irregular Heart Sounds: no murmurs GI Inspection: non-distended Palpation: soft, no hepatosplenomegaly, no guarding, not rigid and nontender Auscultation: normal bowel sounds Back/Spine/Pelvis Back: no CVA tenderness Skin General: dry skin (warm) Neuro General: alert, awake, oriented x3 and other (Grossly nonfocal.) Speech: speech normal Motor: no movement abnormalities noted Extrem General: normal to inspection (2+ pulses in all 4 extremities. She reports having burning and tingling sensations of her feet which is chronic related to a neuropathy since being on chemotherapy.), no calf tenderness, no clubbing, no cyanosis and no edema Psych Mood: congruent mood Affect: normal affect Judgment: judgment good Course Initial Documented Vital Signs Pulse Rate 146 H 09/14/18 23:18 Respiratory Rate 18 09/14/18 23:18 Blood Pressure 94/53 L 09/14/18 23:18 Pulse Oximetry 98 09/14/18 23:18 Last Documented Vital Signs Temperature 98 F 09/15/18 17:19 Pulse Rate 82 09/15/18 18:24 Respiratory Rate 17 09/15/18 17:19 Blood Pressure 133/75 09/15/18 17:19 Pulse Oximetry 95 09/15/18 17:19 Medical Decision Making [facility] Narrative Medical decision making narrative: During the course of the patient's emergency department visit, the patient's history, examination, and differential diagnosis were reviewed with the patient. The patient was placed on a monitoring and evaluation advisor with oximetry and frequent blood pressure monitoring. The patient had IV access obtained and blood work sent for analysis. A diagnostic evaluation was started regarding the patient's shortness of breath. The patient was noted on monitoring to be in A. fib with RVR. This is confirmed with an EKG. The patient was initially provided Cardizem as a bolus and then a drip. The patient was also given normal saline at 500 mL bolus x1. The patient's heart rate began to improve. The patient's shortness of breath resolved after the tachycardia improved. The patient's diagnostic evaluation is remarkable for Normal white count of 9.6 , hemoglobin 12.7, platelets 206 with 9.5 monocytes, PT 14.9, INR 1.5, PTT 35.8 , chemistry is remarkable for creatinine of 1.06, glucose 111, BNP 59, troponin I is 0.03, CPK 118. Chest x-ray reveals cardiomegaly, no other acute abnormality. The patient's case including history, pertinent physical examination findings, and laboratory studies were discussed with Dr. Stallings. It was agreed that the patient would be admitted to the [facility] hospitalist service. The patient's results were discussed with the patient, including the plan of care. I explained that further testing and/ or monitoring is indicated based on the patient's history, examination, and/ or laboratory findings. Therefore, I recommended admission for additional evaluation. The patient expressed understanding and was agreeable with this plan. The patient was admitted to the hospital in guarded condition and sent to a bed under the care of [facility] hospitalist service. Medical Screen Exam Complete: Yes Emergency Medical Condition: Yes Differential Diagnosis Differential Diagnosis: A. fib with RVR, versus acute coronary syndrome, versus pneumonia, versus congestive heart failure, versus pulmonary embolism Medical Records Medical records reviewed: Yes I reviewed the patient's medical records. Lab Data Result diagrams: 09/14/18 23:47 09/14/18 23:47 Lab Results 09/14/18 09/14/18 09/14/18 Range/Units 23:47 23:47 23:47 WBC 9.6 (4.0-11.0) th/mm3 RBC 4.01 (4.00-5.30) mil/mm3 Hgb 12.7 (11.6-15.3) gm/dL Hct 38.9 (35.0-46.0) % MCV 97.0 (80.0-100.0) fL MCH 31.6 (27.0-34.0) pg MCHC 32.6 (32.0-36.0) % RDW 15.3 (11.6-17.2) % Plt Count 206 (150-450) th/mm3 MPV 9.4 (7.0-11.0) fL Neut % (Auto) 63.4 (16.0-70.0) % Lymph % (Auto) 25.7 (9.0-44.0) % [place] % (Auto) 9.5 H (0.0-8.0) % Eos % (Auto) 1.0 (0.0-4.0) % Baso % (Auto) 0.4 (0.0-2.0) % Neut # (Auto) 6.1 (1.8-7.7) th/mm3 Lymph # (Auto) 2.5 (1.0-4.8) th/mm3 [place] # (Auto) 0.9 (0.0-0.9) th/mm3 Eos # (Auto) 0.1 (0.0-0.4) th/mm3 Baso # (Auto) 0.0 (0.0-0.2) th/mm3 WBC Differential . Differential Comment Auto diff final PT 14.9 H (9.8-11.6) sec INR 1.5 Ratio APTT 35.8 H (24.3-30.1) sec Sodium 140 (136-145) meq/L Potassium 3.6 (3.5-5.1) meq/L Chloride 105 (98-107) meq/L Carbon Dioxide 21.7 (21.0-32.0) meq/L Anion Gap 13 (5-15) meq/L BUN 16 (7-18) mg/dL Creatinine 1.06 H (0.50-1.00) mg/dL Estimated GFR 50 L (>89) mL/min Random Glucose 111 H (74-106) mg/dL Calcium 8.9 (8.5-10.1) mg/dL Magnesium 1.6 (1.5-2.5) mg/dL Total Bilirubin 1.0 (0.2-1.0) mg/dL AST 22 (15-37) U/L ALT 17 (10-53) U/L Alkaline Phosphatase 56 (45-117) U/L Total Creatine Kinase 118 (26-192) U/L CK-MB (CK-2) 3.1 (0.5-3.6) ng/mL Troponin I 0.03 (0.02-0.05) ng/mL B-Natriuretic Peptide (0-100) pg/mL Total Protein 6.9 (6.4-8.2) g/dL Albumin 3.3 L (3.4-5.0) g/dL Lipase 68 L (73-393) U/L Urine Color (Yellw/Straw) Urine Clarity (Clear) Urine pH (5.0-8.5) Ur Specific [place] (1.002-1.035) Urine Protein (Neg-Trace) mg/dL Urine Glucose (UA) (Negative) mg/dL Urine Ketones (Negative) mg/dL Urine Occult Blood (Negative) Urine Nitrate (Negative) Urine Bilirubin (Negative) Urine Urobilinogen (Less than 2) mg/dL Ur Leukocyte Esterase (Negative) Urine RBC (0-3) /hpf Urine WBC (0-5) /hpf Ur Squamous Epith Cells (0-5) /hpf Ur Transition Epith Cell (None) /hpf Hyaline Casts (0-3) /lpf Micro UA Comment Ur Microscopic Review Urine Culture Comments 09/14/18 09/15/18 Range/Units 23:47 00:45 WBC (4.0-11.0) th/mm3 RBC (4.00-5.30) mil/mm3 Hgb (11.6-15.3) gm/dL Hct (35.0-46.0) % MCV (80.0-100.0) fL MCH (27.0-34.0) pg MCHC (32.0-36.0) % RDW (11.6-17.2) % Plt Count (150-450) th/mm3 MPV (7.0-11.0) fL Neut % (Auto) (16.0-70.0) % Lymph % (Auto) (9.0-44.0) % [place] % (Auto) (0.0-8.0) % Eos % (Auto) (0.0-4.0) % Baso % (Auto) (0.0-2.0) % Neut # (Auto) (1.8-7.7) th/mm3 Lymph # (Auto) (1.0-4.8) th/mm3 [place] # (Auto) (0.0-0.9) th/mm3 Eos # (Auto) (0.0-0.4) th/mm3 Baso # (Auto) (0.0-0.2) th/mm3 WBC Differential Differential Comment PT (9.8-11.6) sec INR Ratio APTT (24.3-30.1) sec Sodium (136-145) meq/L Potassium (3.5-5.1) meq/L Chloride (98-107) meq/L Carbon Dioxide (21.0-32.0) meq/L Anion Gap (5-15) meq/L BUN (7-18) mg/dL Creatinine (0.50-1.00) mg/dL Estimated GFR (>89) mL/min Random Glucose (74-106) mg/dL Calcium (8.5-10.1) mg/dL Magnesium (1.5-2.5) mg/dL Total Bilirubin (0.2-1.0) mg/dL AST (15-37) U/L ALT (10-53) U/L Alkaline Phosphatase (45-117) U/L Total Creatine Kinase (26-192) U/L CK-MB (CK-2) (0.5-3.6) ng/mL Troponin I (0.02-0.05) ng/mL B-Natriuretic Peptide 59 (0-100) pg/mL Total Protein (6.4-8.2) g/dL Albumin (3.4-5.0) g/dL Lipase (73-393) U/L Urine Color Yellow (Yellw/Straw) Urine Clarity Cloudy H (Clear) Urine pH 5.0 (5.0-8.5) Ur Specific [place] 1.013 (1.002-1.035) Urine Protein Negative (Neg-Trace) mg/dL Urine Glucose (UA) Negative (Negative) mg/dL Urine Ketones Trace H (Negative) mg/dL Urine Occult Blood Negative (Negative) Urine Nitrate Negative (Negative) Urine Bilirubin Negative (Negative) Urine Urobilinogen Less than 2 (Less than 2) mg/dL Ur Leukocyte Esterase Large H (Negative) Urine RBC 5 H (0-3) /hpf Urine WBC 93 H (0-5) /hpf Ur Squamous Epith Cells 5 (0-5) /hpf Ur Transition Epith Cell 4 (None) /hpf Hyaline Casts 1 (0-3) /lpf Micro UA Comment Culture indicated Ur Microscopic Review Not Reportable Urine Culture Comments Culture indicated Imaging Data Radiologist's impression: Chest X-Ray 09/14/18 23:36 CONCLUSION: Cardiomegaly. No acute pulmonary disease. ECG Data Attestation: I personally reviewed and interpreted this ECG as follows: Interpretation: The patient had a EKG done on arrival. The patient's EKG revealed atrial fibrillation with RVR heart rate of 130 QRS duration 94 ms, QTC 389 ms with an occasional premature ventricular complex. No acute ST segment elevation. Discharge Plan Discharge Disposition Patient Disposition: 30 Still Patient Discharge Details Diagnosis: Atrial fibrillation with rapid ventricular response Physicians Team ED Provider: Anju Evans Primary Care Provider: UNKNOWN, Attending Provider: Martir Jackson Other Providers: Jacy Shabazz Status ED Status: Left Department Discharge Information Discharge Date/Time: 09/15/18 05:53
[2018-09-15 00:33] LABS: Anion Gap 13 meq/L (5-15)
[2018-09-15 00:37] LABS: Alanine Aminotransferase 17 U/L (10-53); Albumin 3.3 g/dL (3.4-5.0); Alkaline Phosphatase 56 U/L (45-117); Aspartate Aminotransferase 22 U/L (15-37); Blood Urea Nitrogen 16 mg/dL (7-18); Calcium 8.9 mg/dL (8.5-10.1); Carbon Dioxide 21.7 meq/L (21.0-32.0); Chloride 105 meq/L (98-107); Creatine Kinase 118 U/L (26-192); Glomerular Filtration Rate 50 mL/min (>89); Glucose,Random 111 mg/dL (74-106); Lipase 68 U/L (73-393); Magnesium 1.6 mg/dL (1.5-2.5); Sodium 140 meq/L (136-145); Total Protein 6.9 g/dL (6.4-8.2); Troponin I 0.03 ng/mL (0.02-0.05)
[2018-09-15 00:39] LABS: Potassium 3.6 meq/L (3.5-5.1)
[2018-09-15 00:51] LABS: Creatine Kinase MB 3.1 ng/mL (0.5-3.6)
[2018-09-15 01:33] LABS: Bilirubin,Urine Negative (Negative); Clarity,Urine Cloudy (Clear); Color,Urine Yellow (Yellw/Straw); Glucose,Urine (UA) Negative (Negative); Hyaline Casts,Urine 1 /lpf (0-3); Leukocyte Esterase,Urine Large (Negative); Nitrite,Urine Negative (Negative); Specific Gravity,Urine 1.013 (1.002-1.035); Squamous Epithelial Cell,Urine 5 /hpf (0-5); Transitional Epi Cells,Urine 4 /hpf
[2018-09-15] MEDS ORDERED: Acetaminophen 500 MG Tablet PO ONE (09:00)
--- NOTE | 2018-09-15 09:00 | P.HPIM ---
History of Present Illness Primary Care Physician: UNKNOWN History of Present Illness: Pt is 82 yo with hx ovarian ca, chemo induced neuropathy, pulmonary embolism, copd who presented with afib/rvr last night. She apparently was feeling sob last night took and neb rx and went to bed. awoke sob and brought to ED. Found to have afib/rvr and placed on cardizem gtt. pt denies cp or sob and only focused on her neuropathy pains affecting her toes. Of note the patient was admitted to [facility] in July for dvt nonocclusive distal left popliteal. Large clot burden bilateral pulmonary emboli with evidence of increased pulm pressure and right heart strain. suspected thrombus within the left ventricle. Pt received TPA at that time. Echo not supportive of LV thrombus. PMH; afib copd L1 fx. kyphoplasty pulmonary embolism ovarian ca s/p chemotherapy chemo induced peripheral neuropathy copd ckd 3 htn thyroidectomy glenn/bso T/A FH: lymphoma/panc ca SH: 20yrs tob. quick 1970s glass beer/wine with meals - Diagnosis (1) Atrial fibrillation with rapid ventricular response 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 (3) COPD (chronic obstructive pulmonary disease) (4) Hypertension (5) Ovarian cancer Inpatient Certification: I certify that the inpatient services were ordered in accordance with Medicare regulations governing the order. This includes certification that hospital inpatient services are reasonable and necessary and in the case of services not specified as inpatient-only under 42 CFR 419.22(n), that they are appropriately provided as inpatient services in accordance to with the 2-midnight benchmark under 43 CFR 412.3(e) Review of Systems sob neuropathy pain feet. PMFSH - History History Provided By: Patient - Medical History Medical History: Medical History (Last Reviewed 09/15/18 @ 00:25 by Anju Evans MD) COPD (chronic obstructive pulmonary disease) (Chronic) Hypertension (Chronic) Onset Date: ~12/2017 Ovarian cancer (Chronic) CKD (chronic kidney disease) stage 3, GFR 30-59 ml/min H/O: hysterectomy Osteopenia - Surgical History Surgical History: Surgical History (Last Reviewed 09/15/18 @ 00:25 by Anju Evans MD) H/O breast biopsy H/O hysterectomy with oophorectomy Onset Date: ~12/2017 H/O thyroidectomy History of tonsillectomy and adenoidectomy - Family History Family History: Family History (Last Reviewed 09/15/18 @ 00:25 by Anju Evans MD) Other Lymphoma Pancreatic cancer - Tobacco History Second Hand Smoke Exposure: No Tobacco Use In Past 30 Days: No Smoking Status: Former smoker Tobacco Type: Cigarettes Years Smoked: 20 Number of Pack Years (if former smoker): 20 Smoking End Date: - Alcohol History How Often Do You Have a Drink Containing Alcohol: Monthly or less - Substance Use History Substance History: No History of Abuse - Travel History Recent Travel in the [place] Within the Last 8 Weeks: No Recent Travel Out of the Country Within the Last 8 Weeks: No - Immunization History Tetanus Immunization: >5 Years Hx Influenza Vaccine This Season: Yes Medications and Allergies Active Medications: Active Medications Diltiazem HCl 125 mg/ Sodium (Chloride) 125 mls @ 5 mls/hr IV.CONT TITRATE PRN ; Protocol PRN Reason: Per Protocol Last Titration: 09/15/18 06:31 Dose: 10 mg/hr, 10 mls/hr Sodium Chloride (Ns Flush) 2 ml IV.FLUSH UNSCH PRN PRN Reason: FLUSH AFTER USING IV ACCESS Allergies Allergy/AdvReac Type Severity Reaction Status Date / Time penicillin G Allergy Mild Hives Verified 07/06/18 12:36 Home Medications Medication Instructions Recorded Confirmed Type atenolol 25 mg PO DAILY 07/06/18 09/15/18 History cholecalciferol (vitamin D3) 400 unit PO DAILY 07/06/18 09/15/18 History [Vitamin D3] multivitamin [Multiple Vitamins] 1 tab PO DAILY 07/06/18 09/15/18 History omega-3 fatty acids-fish oil [Fish 1 cap PO DAILY 07/06/18 09/15/18 History Oil] pravastatin 40 mg PO DAILY 07/06/18 09/15/18 History albuterol sulfate 2 mg PO QID 09/15/18 09/15/18 History clonazepam 0.5 mg PO HS 09/15/18 09/15/18 History docusate sodium [Colace] 100 mg PO DAILY 09/15/18 09/15/18 History garlic 1,000 mg PO DAILY 09/15/18 09/15/18 History magnesium oxide 400 mg PO BID 09/15/18 09/15/18 History rivaroxaban [Xarelto] 20 mg PO DAILY 09/15/18 09/15/18 History turmeric root extract 500 mg PO DAILY 09/15/18 09/15/18 History vit A,C and X-cphyqa-ynjvgtjd 1 tab PO DAILY 09/15/18 09/15/18 History [Ocuvite with Lutein] Exam Vital signs: Vital Signs 09/14/18 23:18 09/14/18 23:23 09/15/18 00:07 Temperature 97.9 F Pulse Rate 146 H 141 H 88 Respiratory Rate 18 18 18 Blood Pressure 94/53 L 94/53 L 105/57 L Pulse Oximetry 98 98 98 09/15/18 00:09 09/15/18 01:09 09/15/18 01:33 Temperature 98.0 F Pulse Rate 88 112 H 97 H Respiratory Rate 18 18 18 Blood Pressure 105/57 L 109/59 L 115/57 L Pulse Oximetry 98 97 97 09/15/18 01:49 09/15/18 02:05 09/15/18 02:30 Temperature Pulse Rate 94 H 99 H 102 H Respiratory Rate 16 18 18 Blood Pressure 96/58 L 100/53 L 111/77 Pulse Oximetry 96 96 97 09/15/18 02:52 09/15/18 03:16 09/15/18 03:34 Temperature Pulse Rate 118 H 90 85 Respiratory Rate 18 18 18 Blood Pressure 98/55 L 113/55 L 99/57 L Pulse Oximetry 97 96 96 09/15/18 04:03 09/15/18 05:06 09/15/18 05:48 Temperature 97.9 F Pulse Rate 84 82 77 Respiratory Rate 18 18 18 Blood Pressure 120/56 L 106/55 L 108/44 L Pulse Oximetry 95 96 96 09/15/18 06:30 Temperature Pulse Rate 65 Respiratory Rate Blood Pressure Pulse Oximetry Intake & Output 09/14/18 09/15/18 09/15/18 18:59 06:59 18:59 Intake Total 500 / 500 Output Total 400 / 400 Balance 100 / 100 Weight 70.4 kg Intake: IV 500 / 500 NS Inj 500 ML @ Wide Open IV. 500 / 500 SIG BOLUS ONE Rx#:[id number] Output: Urine 400 / 400 Other: # Voids 1 Date of Last Bowel Movement 09/14/18 Weight On Admission 70.4 kg heart irreg lung cta abd s/nt ext no edema Results - Labs CBC & Chem 7: 09/14/18 23:47 09/14/18 23:47 Labs: Short CBC 09/14/18 Range/Units 23:47 WBC 9.6 (4.0-11.0) th/mm3 Hgb 12.7 (11.6-15.3) gm/dL Hct 38.9 (35.0-46.0) % Plt Count 206 (150-450) th/mm3 BMP 09/14/18 23:47 Sodium 140 Potassium 3.6 Chloride 105 Carbon Dioxide 21.7 BUN 16 Creatinine 1.06 H Calcium 8.9 Cardiac Enzymes 09/14/18 Range/Units 23:47 Total Creatine Kinase 118 (26-192) U/L CK-MB (CK-2) 3.1 (0.5-3.6) ng/mL Troponin I 0.03 (0.02-0.05) ng/mL Liver Function 09/14/18 Range/Units 23:47 Total Bilirubin 1.0 (0.2-1.0) mg/dL AST 22 (15-37) U/L ALT 17 (10-53) U/L Alkaline Phosphatase 56 (45-117) U/L Albumin 3.3 L (3.4-5.0) g/dL Urine 09/15/18 Range/Units 00:45 Urine Color Yellow (Yellw/Straw) Urine Clarity Cloudy H (Clear) Urine pH 5.0 (5.0-8.5) Ur Specific [place] 1.013 (1.002-1.035) Urine Protein Negative (Neg-Trace) mg/dL Urine Glucose (UA) Negative (Negative) mg/dL - Imaging Impressions Chest X-Ray 09/14/18 23:36 CONCLUSION: Cardiomegaly. No acute pulmonary disease. Caprini VTE Risk Assessment Caprini VTE Risk Assessment: Moderate/High Risk (score >= 2) Caprini Risk Assessment Model: Point Value = 1 Point Value = 2 Point Value = 3 Point Value = 5 Age 41-60 Minor surgery BMI > 25 kg/m2 Swollen legs Varicose veins or History of unexplained or recurrent spontaneous Oral contraceptives or hormone replacement Sepsis (< 1 month) Serious lung disease, including pneumonia (< 1 month) Abnormal pulmonary function Acute myocardial infarction Congestive heart failure (< 1 month) History of inflammatory bowel disease Medical patient at bed rest Age 61-74 Arthroscopic surgery Major open surgery (> 45 min) Laparoscopic surgery (> 45 min) Malignancy Confined to bed (> 72 hours) Immobilizing plaster cast Central venous access Age >= 75 History of VTE Family history of VTE Factor V Leiden Prothrombin [id number] Lupus anticoagulant Anticardiolipin antibodies Elevated serum homocysteine Heparin-induced thrombocytopenia Other congenital or acquired thrombophilia Stroke (< 1 month) Elective arthroplasty Hip, pelvis, or leg fracture Acute spinal cord injury (< 1 month) Prophylaxis Regimen: Total Risk Factor Score Risk Level Prophylaxis Regimen 0-1 Low Early ambulation 2 Moderate Order ONE of the following: *Sequential Compression Device (SCD) *Heparin 5000 units SQ BID 3-4 Higher Order ONE of the following medications: *Heparin 5000 units SQ TID *Enoxaparin/Lovenox 40 mg SQ daily (WT < 150 kg, CrCl > 30 mL/min) *Enoxaparin/Lovenox 30 mg SQ daily (WT < 150 kg, CrCl > 10-29 mL/min) *Enoxaparin/Lovenox 30 mg SQ BID (WT < 150 kg, CrCl > 30 mL/min) AND/OR *Sequential Compression Device (SCD) 5 or more Highest Order ONE of the following medications: *Heparin 5000 units SQ TID (Preferred with Epidurals) *Enoxaparin/Lovenox 40 mg SQ daily (WT < 150 kg, CrCl > 30 mL/min) *Enoxaparin/Lovenox 30 mg SQ daily (WT < 150 kg, CrCl > 10-29 mL/min) *Enoxaparin/Lovenox 30 mg SQ BID (WT < 150 kg, CrCl > 30 mL/min) AND *Sequential Compression Device (SCD) Assessment and Plan - Assessment (1) Atrial fibrillation with rapid ventricular response Code(s): I48.91 - Unspecified atrial fibrillation Status: Acute Plan: 1. afib/rvr currently controlled on cardizem gtt initiate po bb today and wean off gtt echo. cont pt xarelto PT eval. addendum: Pt converted from afib to sinus but had 7 second pause. CAlled cardiology dr Shelton who thinks pt needs PM. He will call Dr Shabazz. 2. hx PE. already on xarelto Of note the patient was admitted to [facility] in July for dvt nonocclusive distal left popliteal. Large clot burden bilateral pulmonary emboli with evidence of increased pulm pressure and right heart strain. suspected thrombus within the left ventricle. Pt received TPA at that time. Echo not supportive of LV thrombus. 3. hx ovarian ca/chemo induced peripheral neuropathy cont neurontin 4. htn currentl bp on low side recently had ccb and diuretic held 5. copd cont nebs as needed. 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.0 - Drug-induced polyneuropathy; T45.1X5A - Adverse effect of antineoplastic and immunosuppressive drugs, initial encounter Status: Chronic (3) COPD (chronic obstructive pulmonary disease) Code(s): J44.9 - Chronic obstructive pulmonary disease, unspecified Status: Chronic (4) Hypertension Code(s): I10 - Essential (primary) hypertension Status: Chronic Onset Date: ~12/2017 (5) Ovarian cancer Code(s): C56.9 - Malignant neoplasm of unspecified ovary Status: Chronic H&P: Quality - VTE Deep Vein Thrombosis/Pulmonary Embolism Present on Admission: No (4) Hypertension Qualifiers: Hypertension type: essential hypertension Qualified Code(s): I10 - Essential (primary) hypertension
[2018-09-15] MEDS ORDERED: Metoprolol Tartrate 50 MG Tablet PO ONE (09:01)
[2018-09-15] MEDS: Gabapentin 100 MG Capsule PO SCH ×3 (09:32→17:31)
[2018-09-15] MEDS: Rivaroxaban 20 MG Tablet PO SCH (09:32)
[2018-09-15] MEDS ORDERED: dilTIAZem Inj 125 MG in Sodium Chlor 0.9% Inj 100 ML IV.CONT PRN (12:06)
--- NOTE | 2018-09-15 12:43 | ECHRPT ---
Indication: ATRIAL FIB CONCLUSIONS The left ventricular systolic function is normal with an estimated ejection fraction in the range of 60-65%. Normal left ventricular size. Wall thickness is normal. No regional wall motion abnormalities are present. Diffuse calcification of the aortic valve. No aortic valve stenosis. There is trace tricuspid valve regurgitation. The estimated pulmonary arterial pressure is 32 mmHg. Trivial pulmonary valve regurgitation. BP: / HR: Rhythm: Atrial fibrillation Technical Quality:Good FINDINGS LEFT VENTRICLE The left ventricular systolic function is normal with an estimated ejection fraction in the range of 60-65%. Normal left ventricular size. Wall thickness is normal. No regional wall motion abnormalities are present. RIGHT VENTRICLE Normal right ventricular size and systolic function. LEFT ATRIUM The left atrial size is normal. RIGHT ATRIUM The right atrial size is normal. ATRIAL SEPTUM Normal atrial septal thickness without atrial level shunting by limited color doppler interrogation. AORTA The aortic root and proximal ascending aorta are normal in size on limited imaging. MITRAL VALVE Structurally normal mitral valve. No mitral valve stenosis or regurgitation. AORTIC VALVE Trileaflet aortic valve. Diffuse calcification of the aortic valve. No aortic valve stenosis. TRICUSPID VALVE Structurally normal tricuspid valve. There is trace tricuspid valve regurgitation. The estimated pulmonary arterial pressure is 32 mmHg. PULMONARY VALVE Trivial pulmonary valve regurgitation. VESSELS The inferior vena cava is normal in size. PERICARDIUM No pericardial effusion. Wesley Evans MD (Electronically Signed) Final Date:15 September 2018 12:42
[2018-09-15] MEDS: Acetaminophen 325 MG Tablet PO PRN ×2 (17:31→22:20)
--- NOTE | 2018-09-15 20:21 | ECG ---
Date Performed: 09/14/2018 Time Performed: 23:20:58 PTAGE: 82 years EKG: ATRIAL FIBRILLATION WITH RAPID VENTRICULAR RESPONSE WITH ABERRANT CONDUCTION OR VENTRICULAR PREMATURE COMPLEXES NONSPECIFIC ST & T-WAVE ABNORMALITY ABNORMAL RHYTHM ECG PREVIOUS TRACING :07/06/2018 @13.08 Compared to previous tracing, the patient is now in atrial fibrillation with a rapid ventricular response and occasional PVC's. DOCTOR: Marly Quiroz Interpretating Date/Time 09/15/2018 20:20:26
--- NOTE | 2018-09-15 20:32 | MB ---
cc: Jacy Shabazz MD, Hanscy MD Schwartz, Edward B DO Ryan, Lorraine C MD DATE: 09/15/2018 REASON FOR CONSULTATION: Atrial fibrillation over a 7 second pause. HISTORY OF PRESENT ILLNESS: I was called by Dr. Evans about Mrs. Bai. She is an 82-year-old female with history of ovarian cancer, chemotherapy, pulmonary embolism, was admitted due to shortness of breath. During digitalization patient developed 7 second pauses. I was consulted for evaluation and management. The chart was reviewed. The patient was evaluated. ALLERGIES: PENICILLIN. SOCIAL HISTORY: Negative for smoking and drinking. FAMILY HISTORY: Noncontributory to her current medical condition. MEDICATIONS: The patient is on: 1. Acetaminophen. 2. Cardizem was discontinued. 3. She is on Xarelto. 4. She was on metoprolol that was discontinued. 5. She is on Neurontin. SOCIAL HISTORY: Negative for smoking and drinking. FAMILY HISTORY: Noncontributory to her continued medical condition. REVIEW OF SYSTEMS: Currently, she referred no chest pain or discomfort. No dizziness or fever. PHYSICAL EXAMINATION: GENERAL: Alert, fully oriented. VITAL SIGNS: Blood pressure is 132/75, pulse 75, respiratory rate 18. LUNGS: Ventilated. CARDIOVASCULAR: S1, S2. No gallop. No murmur. ABDOMEN: Soft. No masses. EXTREMITIES: No edema. Telemetry shows sinus rhythm. Previous electrocardiogram indicated atrial fibrillation with fast ventricular response, diffuse ST changes. LABORATORY DATA: Hemoglobin 17, white blood cell 9.6. INR 1.5. potassium 3.6, creatinine is 1.06. ASSESSMENT AND RECOMMENDATIONS: Ms. Bai has atrial fibrillation. She has tachybrady syndrome. She did negative chronotropic medication. She has a 7 second pause. I discussed the case extensively with her. A permanent pacemaker discussed. The risks, nature and the benefits of the procedure are clearly stated to her. Risks including renal hematoma, cardiac perforation, stroke, need for open heart surgery and even . At this point, Mrs. Bai wants to think about the procedure. She wants to call her family to discuss the case. Also, she is planning to go to the rehab. She is worried about the pacemaker affecting capacity to go to the rehab. I spent over 30-45 minutes with the patient in the room. All questions were answered in my best knowledge. MD HEMANTH Ferrera/paul , 06:01 PM , 06:11 PM
[2018-09-16] MEDS: Acetaminophen 325 MG Tablet PO PRN ×3 (01:59→22:22)
[2018-09-16 05:47] LABS: Calcium 8.1 mg/dL (8.5-10.1); Carbon Dioxide 25.5 meq/L (21.0-32.0); Magnesium 1.6 mg/dL (1.5-2.5); Phosphorus 3.4 mg/dL (2.5-4.9); Potassium 3.6 meq/L (3.5-5.1); Thyroid Stimulating Hormone 0.949 uIU/mL (0.358-3.740)
[2018-09-16] MEDS ORDERED: fentaNYL Citrate Inj 100 MCG/2 ML Ampul ONE (07:29)
[2018-09-16] MEDS ORDERED: Sodium Chlor 0.9% Inj 250 ML ONE (07:30)
[2018-09-16] MEDS ORDERED: Sodium Chlor 0.9% Inj 250 ML IV.CONT ONE (07:30)
[2018-09-16] MEDS ORDERED: Heparin 10,000 UNITS/10 ML Vial (for IV use) ONE (07:30)
--- NOTE | 2018-09-16 08:40 | CATHPROC ---
Patient Name: April Bai Study #: [id number] Initial MD: Jacy Shabazz Date of : 1935 Study Date: 09/16/2018 Cardiac Catheterization Report 09/16/2018 8:39:38 AM Financial #: [id number] 1 of 7 Patient Name: April Bai Study #: [id number] Initial MD: Jacy Shabazz Date of : 1935 Study Date: 09/16/2018 Entire Case Report Patient Information Patient Name April Bai Date of 1935 Age 82 years Financial # [id number] Gender F AlternateID Lab Number 6 Room Number 256 Height (in) 68.0 Height (cm) 172.7 BSA 1.35 Weight (lbs) 75.7 Weight (kg) 34.4 Patient Address/Phone Number Home Address [facility] Home Phone Number [address] [facility] [address] Study Information Study Number Admission Scheduled Start Study Start [id number] Sep 15 2018 1:41AM 09/16/2018 Sep 16 2018 6:45AM [place] [facility] Cardiac Catheterization Admit Source Facility Department Other [facility] - Supervising Nurse Physician and Clinical Staff Initial Jacy Morris Manager Of Exhibitions And Collections Vernon Hurst,RT(R) Other Anesthesia, PLAY READER Recorder Darlene Miller,COLLEEN Scrub Tommy Hahn,RT(R) TECH2 Procedures Performed Procedure Location (Site) Vessel Name Venogram LV Ventricle Wire insertion Fem Vein (right) Femoral Vein 09/16/2018 8:39:38 AM Financial #: [id number] 2 of 7 Patient Name: April Bai Study #: [id number] Initial MD: Jacy Shabazz Date of : 1935 Study Date: 09/16/2018 Equipment Time Awnings Mechanic Description Size Mfg Part Number Used/Scraped [id number] 07:07 COOK/PACER DILATOR SET (MICRA) FR8-12 Used *[id number] WIRE, GUIDE AMPLATZ STIFF [id number] 07:07 COOK/PACER 3MMJ Used 180CM *[id number] 07:07 [employer] BLANKET,WARM AIR CCL * Used *[id number] 07:07 [employer] INDUSTRIES PACK, CCL CUSTOM * Used *[id number] 07:07 MEDLINE PACER CURTIS, LIMB * 2530 *[id number] Used [id number] 07:07 NAMIC TUBING, HIGH PRESSURE 20" 20" Used *[id number] 07:07 NYCOMED OMNIPAQUE, 300 MG, 50ML 50ML [id number] Used SUTURE, 0 ETHIBOND [CT1] (CX21D), 8pk 07:07 VITATRON MEDTRONIC MONITOR, PACEMAKER\\ICD 36128 *[id number] Used SYSTEM, TRANS-CATHETER [id number] 07:07 VITATRON MEDTRON[employer] Used PACING (MICRA) *[id number] Insurance Information Insurance Payor Medicare, Private Health Insurance Third Alliance Party Third Alliance Party Number [facility] History: Risk Factors Family History of Hypertension Dyslipidemia Previous GA Previous Heart Failure Premature CAD Yes No No No No Prior Valve Prior PCI Prior CABG Surgery No No No Cerebrovascular Peripheral Artery Chronic Lung On Dialysis Diabetes Disease Disease Disease No No No Yes No Labs Hgb (g/dl) Hct (%) WBC (l/cumm) Platelets (thousands) 11.60-17.00 35.00-51.00 4.00-11.00 150.00-450.00 12.7 38.9 9.6 206 Glucose (mg/dl) BUN (mg/dl) Creatinine (mg/dl) BUN:Creatinine (1:x) 74.00-106.00 7.00-18.00 0.50-1.30 10.00-20.00 90 8 0.6 13.3 09/16/2018 8:39:38 AM Financial #: [id number] 3 of 7 Patient Name: April Bai Study #: [id number] Initial MD: Jacy Shabazz Date of : 1935 Study Date: 09/16/20 18 Na (meq/l) K (meq/l) 136.00-145.00 3.50-5.10 143 3.6 Medication Medication Total Dose (Bolus/Oral) Medication Total Dosage/Unit 2% XYLOCAINE 50 mL Medications (Bolus/Oral) Medication Time Given Dosage/Unit Administered By Reason 2% XYLOCAINE 09/16/2018 8:03:46 AM 50 mL Jacy Shabazz 50 mL 2% XYLOCAINE given in lab by Jacy Shabazz in Right Groin via Subcutaneous. Ordered by Goyo Shabazz. Medication (Drip) Medication Time Given Dosage/Unit Concentration/Unit Diluent (ml) Solution IV Solutions 09/16/2018 7:11:19 AM 0 mL (IV) 500 NaCl .9 IV Solutions given in lab by Darlene Miller RN in Right Forearm via Peripheral IV. Pump/Drip Flow = 20 ml/hr using NaCl .9. Ordered by Jacy Shabazz. IV Solutions 09/16/2018 7:11:52 AM 0 mL (IV) 500 NaCl .9 IV Solutions given in lab by Darlene Miller RN in Left Forearm via Peripheral IV. Pump/Drip Flow = 2 0 ml/hr using NaCl .9. Ordered by Jacy Shabazz. VANCOMYCIN DRIP 09/16/2018 7:40:00 AM 1 g 1 g VANCOMYCIN DRIP given in lab by OMID Martinez via Peripheral IV. Ordered by Jacy Shabazz. 09/16/2018 8:39:38 AM Financial #: [id number] Patient Name: April Bai Study #: [id number] Initial MD: Jacy Shabazz Date of : 1935 Study Date: 09/16/2018 Final Case Assessment Cardiovascular HR Rhythm NIBP Chest Pain 90 AR 122/59 0 Edema Present Skin color Skin None Normal Warm Dry Circulatory - Right Pulses Dorsalis Pedis 1 Scale (0,1,2,3,4,d) Circulatory - Left Pulses Dorsalis Pedis 1 Scale (0,1,2,3,4,d) Neurological State Oriented to time-place- Alert Moves all extremities person Respiration - General Respiration Rate SpO2 (%) (B/min) 18 97 Chronological Log Time Study Chronological Log 7:02:40 Patient arrived via Bed. 7:06:45 Patient Name, D.O.B, / Armband Verified By R.N. 7:06:47 Consent signed by the physician and the patient and verified by the Supervising Nurse staff. 7:06:48 Pre-op and post- op instructions given; patient acknowledges understanding of instructions. 7:07:43 Verbal Stimulation=2 Physical Stimulation=2 Airway=2 Respiration=2 TOTAL=8. (0=absent, 1=li mited, 2=present) 7:07:53 Presedation assessment performed by Supervising Nurse RN. 7:07:55 Patient has been NPO for More than 6Hrs. 7:07:57 Skin Breakdown/scab on left foot 7:10:37 Anesthesia at bedside. Assumes care of patient. 7:10:42 A # 20 IV was noted in the Forearm (left). Grade = 0 7:11:11 A # 20 IV was noted in the Forearm (right). Grade = 0 IV Solutions given in lab by Darlene Miller, RN in Right Forearm via Peripheral IV. Pump/Drip F low = 20 ml/hr using 7:11:19 NaCl .9. Ordered by Jacy Shabazz. 09/16/2018 8:39:38 AM Financial #: [id number] Patient Name: April Bai Study #: [id number] Initial MD: Jacy Shabazz Date of : 1935 Study Date: 09/16/2018 IV Solutions given in lab by Darlene Miller, RN in Left Forearm via Peripheral IV. Pump/Drip Fl ow = 20 ml/hr using 7:11:52 NaCl .9. Ordered by Jacy Shabazz. 7:12:09 History and physical on the chart or being dictated. 7:40:00 1 g VANCOMYCIN DRIP given in lab by Anesthesia, PLAY READER via Peripheral IV. Ordered by Goyo Shabazz. 7:42:57 Reference ECG taken 7:55:00 MD arrived. Time Out. Correct patient, procedure, procedure equipment, site and side verified with physicia n present. Time 8:01:00 concurred by MD, individual staff and PLAY READER. Time Out #2 - Consents verified, patient in correct position, all results are labled and displa yed, safety precautions 8:01:50 taken, antibiotics administered. Time out concurred by MD, individual staff and PLAY READER in procedu re 8:01:59 Case Start 8:03:46 50 mL 2% XYLOCAINE given in lab by Jacy Shabazz in Right Groin via Subcutaneous. Ordered b Jacy Howe. 8:05:25 Sheath and dialator removed; pressure applied to access site. 8:07:52 Vascular access was obtained in the Fem Vein (right). 8:08:04 A DILATOR SET (MICRA) FR8-12 was advanced into the Fem Vein (right) using the Modified Seld shamika technique. 8:08:34 A WIRE, GUIDE AMPLATZ STIFF 180CM 3MMJ was inserted via Fem Vein (right). 8:12:27 A catheter was advanced over a wire. contrast was used for injections. micra system 8:12:30 The LV was manually injected with 20 cc's of contrast. OMNIPAQUE, 300 MG, 50ML 50ML used. 8:12:54 A SYSTEM, TRANS-CATHETER PACING (MICRA) was connected and placed in the pocket. into LV 8:13:09 Lead placement verified under fluoroscopy 8:18:29 The RV lead impedance and threshold being tested. 8:20:14 Catheter was removed figure 8 sutured placed and sheath removed 8:20:20 8:20:55 tommy h held presssure x20 mins 8:21:23 Case End (Physician broke scrub) 8:21:28 Implant Procedure was performed. 8:21:36 A PPM Implant . (Single) Micra 8:31:10 Sterile dressing applied to site 8:31:11 No case complications noted. 8:31:11 Cine recording checked. 8:31:13 Bedside Report will be given. 8:31:14 Implantable Device card placed in patient's chart. 8:31:15 [facility] called. Spoke to ELEUTERIO Assessment: Final Case, HR=90 BPM, Rhythm=AR, ATBO=538/59 mmhg, Chest Pain=0, Edema=None, Color =Normal, Skin = Warm, Dry Right Pulses: Benny Ped=1 8:33:09 Left Pulses: Benny Ped=1 Neurological: State=Alert, Ox3, BARRY Respiration: Resp=18 B/min, SpO2=97 % 8:33:54 Defibrillator and ground pads removed. Skin intact. 8:37:57 Patient moved to [facility] 09/16/2018 8:39:38 AM Financial #: [id number] 6 of 7 Patient Name: April Bai Study #: [id number] Initial MD: Jacy Shabazz Date of : 1935 Study Date: 09/16/2018 End Study - Contrast Media Used In Study Contrast Total Opened (mL) Total Used (mL) Total Wasted (mL) Omnipaque 20 20 0 End Study - Maximum Contrast Load Max Contrast Load (mL) 286.7 End Study - Radiation Exposure Fluoro Time (minutes) 1.6 End Study - Patient Disposition Complications Transferred To Interventional Outcome No Telemetry Bed successful 09/16/2018 8:39:38 AM Financial #: [id number] 7 of 7
--- NOTE | 2018-09-16 08:44 | P.PNIM ---
Subjective Interval history: no events overnight. Physical Exam Vital signs: Vital Signs 09/15/18 09:00 09/15/18 10:00 09/15/18 10:03 Temperature Pulse Rate 70 76 Respiratory Rate Blood Pressure Pulse Oximetry 96 09/15/18 11:00 09/15/18 12:00 09/15/18 12:39 Temperature 97.8 F Pulse Rate 60 60 87 Respiratory Rate 16 Blood Pressure 101/48 L Pulse Oximetry 96 09/15/18 12:55 09/15/18 13:00 09/15/18 14:00 Temperature Pulse Rate 8 L 62 66 Respiratory Rate Blood Pressure Pulse Oximetry 09/15/18 15:00 09/15/18 17:09 09/15/18 17:19 Temperature 98 F Pulse Rate 77 75 Respiratory Rate 17 Blood Pressure 133/75 Pulse Oximetry 96 95 09/15/18 18:24 09/15/18 19:00 09/15/18 20:00 Temperature 97.7 F Pulse Rate 82 75 74 Respiratory Rate 14 Blood Pressure 125/52 L Pulse Oximetry 96 09/15/18 21:00 09/15/18 22:00 09/15/18 23:00 Temperature Pulse Rate 76 76 76 Respiratory Rate Blood Pressure Pulse Oximetry 09/16/18 00:00 09/16/18 01:00 09/16/18 02:00 Temperature 97.6 F Pulse Rate 78 76 82 Respiratory Rate 16 Blood Pressure 124/69 Pulse Oximetry 95 09/16/18 03:00 09/16/18 04:00 09/16/18 05:00 Temperature 98.2 F Pulse Rate 74 78 84 Respiratory Rate 16 Blood Pressure 143/80 H Pulse Oximetry 96 09/16/18 06:00 Temperature Pulse Rate 85 Respiratory Rate Blood Pressure Pulse Oximetry Intake & Output 09/15/18 09/16/18 09/16/18 18:59 06:59 18:59 Intake Total 855 / 855 240 / 240 Output Total 600 / 600 1275 / 1275 Balance 255 / 255 -1035 / -1035 Weight 76.2 kg 75.7 kg Intake: IV 135 / 135 Cardizem Inj 125 MG In NS Inj 135 / 135 100 ML @ 5 MG/HR 5 mls/hr IV. CONT TITRATE PRN Rx#:[id number] Oral 720 / 720 240 / 240 Output: Urine 600 / 600 1275 / 1275 Other: Date of Last Bowel Movement 09/15/18 # Bowel Movements 1 1 heart reg lung cta abd s/nt ext no edema Results - Labs CBC & Chem 7: 09/14/18 23:47 09/16/18 04:28 Laboratory Results - last 24 hr 09/16/18 04:28 Sodium 143 Potassium 3.6 Chloride 110 H Carbon Dioxide 25.5 Anion Gap 8 BUN 8 Creatinine 0.65 Estimated GFR 87 L Random Glucose 90 Calcium 8.1 L D Phosphorus 3.4 Magnesium 1.6 TSH 0.949 Assessment and Plan - Assessment (1) Atrial fibrillation with rapid ventricular response Code(s): I48.91 - Unspecified atrial fibrillation Status: Acute Plan: 1. afib/rvr tachy rula syndrome Pt converted from afib to sinus but had 7 second pause. Echo 09/15: CONCLUSIONS The left ventricular systolic function is normal with an estimated ejection fraction in the range of 60-65%. Normal left ventricular size. Wall thickness is normal. No regional wall motion abnormalities are present. Diffuse calcification of the aortic valve. No aortic valve stenosis. There is trace tricuspid valve regurgitation. The estimated pulmonary arterial pressure is 32 mmHg. Trivial pulmonary valve regurgitation. stopped eliu blockers Pt going for PPM this morning with dr Shabazz cont pt xarelto PT eval. 2. hx PE. already on xarelto Of note the patient was admitted to [facility] in July for dvt nonocclusive distal left popliteal. Large clot burden bilateral pulmonary emboli with evidence of increased pulm pressure and right heart strain. suspected thrombus within the left ventricle. Pt received TPA at that time. Echo not supportive of LV thrombus. 3. hx ovarian ca/chemo induced peripheral neuropathy cont neurontin 4. htn currentl bp on low side recently had ccb and diuretic held 5. copd cont nebs as needed. 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
[2018-09-16] MEDS: Gabapentin 100 MG Capsule PO SCH ×3 (09:29→17:42)
[2018-09-16] MEDS: Rivaroxaban 20 MG Tablet PO SCH (09:29)
[2018-09-16] MEDS: Docusate Sodium 100 MG Capsule PO SCH (09:30)
--- NOTE | 2018-09-16 11:52 | MP ---
cc: Jacy Shabazz MD DATE OF OPERATION: 09/16/2018 INDICATIONS: Ms. Bai is an 82-year-old female with pauses, some of them up to 7 seconds, tachybrady syndrome, atrial fibrillation; will undergo Micra permanent pacemaker insertion. The risks, the nature and the benefits of the procedure are clearly stated to her. Risks include pneumothorax, cardiac perforation, stroke, need for open heart surgery and even . The patient understood and agreed to proceed. DESCRIPTION OF PROCEDURE: After written informed consent was obtained, the patient was brought to the EP lab where she was prepped and draped in the usual sterile fashion. Conscious sedation was initiated and maintained throughout the procedure by the anesthesiologist. Once sedation was verified, the right inguinal area and anesthetized with 2% Xylocaine. Using modified Seldinger technique, the right femoral vein was scanned on one occasion; 1 guidewire was advanced. Then the stiff Amplatz was advanced all the way to the superior vena cava. Then an 11 cm incision was made. Subsequently, the area was predilated using an 8, 12, 16 and 20-[place] dilator. Then the microsheath was advanced all the way to the right atrium. Then the delivery system was advanced at the right atrium and the sheath was pulled back in the IVC. Then a delivery system was placed in the septal area. Venography showed device in good position. Subsequently, the device was released. After adequate pacing and sensing were obtained, the device was completely released and the sheath and the dilator was removed. A 2-0 Ethibond suture was placed at the exit point to prevent bleeding. Procedure complete. No incident report. The patient tolerated the procedure. Blood loss minimal. IMPLANTED HARDWARE: The implanted pacemaker is a [employer] model number [id number]; serial number [id number]. THRESHOLD: The right ventricle pacing threshold in bipolar mode was 0.38 Volts at 0.24 millisecond; lead impendence 390 ohm, R-wave over 20 millivolts. SETTING: The device in VVIR 70. CONCLUSION: Successful pacemaker insertion. RECOMMENDATION: The patient is going to be transferred to the telemetry unit; will be observed. When stable, can be discharged home. MD HEMANTH Ferrera/ramon/chauncey , 08:23 AM , 08:32 AM
[2018-09-16] MEDS ORDERED: Iohexol 350 MG/ML 50 ML Vial (for EPS) IVCONTRAST ONE (12:57)
--- NOTE | 2018-09-16 13:47 | ECG ---
Date Performed: 09/16/2018 Time Performed: 09:12:40 PTAGE: 82 years EKG: Sinus rhythm . Right bundle branch block Inferior ST-T changes may be due to myocardial ischemia NO PREVIOUS TRACING DOCTOR: Chapincito Ahumada M.D. Interpretating Date/Time 09/16/2018 13:47:11
[2018-09-17] MEDS: Acetaminophen 325 MG Tablet PO PRN ×5 (03:42→22:42)
[2018-09-17] MEDS: Docusate Sodium 100 MG Capsule PO SCH (08:43)
[2018-09-17] MEDS: Rivaroxaban 20 MG Tablet PO SCH (08:43)
[2018-09-17] MEDS: Gabapentin 100 MG Capsule PO SCH ×3 (08:43→19:28)
--- NOTE | 2018-09-17 09:56 | P.DS ---
Date of admission: 09/15/18 01:41 Primary care physician: UNKNOWN Brief History from admission: Pt is 82 yo with hx ovarian ca, chemo induced neuropathy, pulmonary embolism, copd who presented with afib/rvr last night. She apparently was feeling sob last night took and neb rx and went to bed. awoke sob and brought to ED. Found to have afib/rvr and placed on cardizem gtt. pt denies cp or sob and only focused on her neuropathy pains affecting her toes. Of note the patient was admitted to [facility] in July for dvt nonocclusive distal left popliteal. Large clot burden bilateral pulmonary emboli with evidence of increased pulm pressure and right heart strain. suspected thrombus within the left ventricle. Pt received TPA at that time. Echo not supportive of LV thrombus. PMH; afib copd L1 fx. kyphoplasty pulmonary embolism ovarian ca s/p chemotherapy chemo induced peripheral neuropathy copd ckd 3 htn thyroidectomy glenn/bso T/A FH: lymphoma/panc ca SH: 20yrs tob. 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 afib/rvr tachy rula syndrome Pt converted from afib to sinus but had 7 second pause. Echo 09/15: CONCLUSIONS The left ventricular systolic function is normal with an estimated ejection fraction in the range of 60-65%. Normal left ventricular size. Wall thickness is normal. No regional wall motion abnormalities are present. Diffuse calcification of the aortic valve. No aortic valve stenosis. There is trace tricuspid valve regurgitation. The estimated pulmonary arterial pressure is 32 mmHg. Trivial pulmonary valve regurgitation. stopped eliu blockers PPM with dr Harika vallejo pt xarelto PT eval. Pt wanted to go to inpatient rehab at [place] for her lower ext weakness and inability to walk. 2. hx PE. already on xarelto Of note the patient was admitted to [facility] in July for dvt nonocclusive distal left popliteal. Large clot burden bilateral pulmonary emboli with evidence of increased pulm pressure and right heart strain. suspected thrombus within the left ventricle. Pt received TPA at that time. Echo not supportive of LV thrombus. 3. hx ovarian ca/chemo induced peripheral neuropathy cont neurontin 4. htn currentl bp on low side recently had ccb and diuretic held 5. copd cont nebs as needed. 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.0 - Drug-induced polyneuropathy; T45.1X5A - Adverse effect of antineoplastic and immunosuppressive drugs, initial encounter Status: Chronic (3) COPD (chronic obstructive pulmonary disease) Code(s): J44.9 - Chronic obstructive pulmonary disease, unspecified Status: Chronic (4) Hypertension Code(s): I10 - Essential (primary) hypertension Status: Chronic Onset Date: ~12/2017 (5) Ovarian cancer Code(s): C56.9 - Malignant neoplasm of unspecified ovary Status: Chronic (4) Hypertension Qualifiers: Hypertension type: essential hypertension Qualified Code(s): I10 - Essential (primary) hypertension Documented By: Noe Bernard MD 09/16/18 0842 Signed By: - Time Spent with Patient Total time spent providing and/or coordinating discharge services: Greater than 30 minutes - Quality: VTE Deep Vein Thrombosis/Pulmonary Embolism Present on Admission: No Exam Vital signs: Vital Signs 09/16/18 10:00 09/16/18 11:00 09/16/18 12:00 Temperature 97.6 F Pulse Rate 88 94 H 82 Respiratory Rate 16 Blood Pressure 125/71 Pulse Oximetry 09/16/18 13:00 09/16/18 14:00 09/16/18 14:40 Temperature Pulse Rate 96 H 86 Respiratory Rate Blood Pressure Pulse Oximetry 98 09/16/18 15:00 09/16/18 16:00 09/16/18 17:00 Temperature 98 F Pulse Rate 77 92 H 84 Respiratory Rate 17 Blood Pressure 136/94 H Pulse Oximetry 97 09/16/18 18:00 09/16/18 19:00 09/16/18 20:00 Temperature 98.6 F Pulse Rate 92 H 79 80 Respiratory Rate 16 Blood Pressure 147/74 H Pulse Oximetry 95 09/16/18 21:00 09/16/18 22:00 09/16/18 23:00 Temperature 98.6 F Pulse Rate 88 72 77 Respiratory Rate 16 Blood Pressure 125/72 Pulse Oximetry 94 L 09/17/18 00:00 09/17/18 01:00 09/17/18 02:00 Temperature Pulse Rate 86 74 74 Respiratory Rate Blood Pressure Pulse Oximetry 09/17/18 03:00 09/17/18 04:00 09/17/18 05:00 Temperature 98.4 F Pulse Rate 78 86 70 Respiratory Rate 14 Blood Pressure 132/86 Pulse Oximetry 96 09/17/18 06:00 09/17/18 07:00 Temperature Pulse Rate 76 78 Respiratory Rate Blood Pressure Pulse Oximetry Intake & Output 09/16/18 09/17/18 09/17/18 18:59 06:59 18:59 Intake Total 525 / 525 240 / 240 Output Total 325 / 325 Balance 525 / 525 -85 / -85 Weight 75.2 kg Intake: Oral 525 / 525 240 / 240 Output: Urine 325 / 325 Other: Date of Last Bowel Movement 09/16/18 # Bowel Movements 1 2 heart reg lung cta abd s/nt ext no edema Results Procedures completed during hospitalization: pacemaker. - Impressions ITS Impressions Chest X-Ray 09/14/18 23:36 CONCLUSION: Cardiomegaly. No acute pulmonary disease. Discharge Plan - Physicians Team Primary Care Provider: UNKNOWN, Attending Provider: Martir Jackson Other Providers: Jacy Shabazz MD
[2018-09-18] MEDS: Acetaminophen 325 MG Tablet PO PRN (04:02)
--- NOTE | 2018-09-18 09:07 | P.PNIM ---
Subjective Interval history: pt was discharged on 09/17. awaiting placement. Physical Exam Vital signs: Vital Signs 09/17/18 10:00 09/17/18 11:00 09/17/18 12:00 Temperature 98 F Pulse Rate 76 92 H 112 H Respiratory Rate 18 Blood Pressure 120/74 Pulse Oximetry 98 09/17/18 13:00 09/17/18 14:00 09/17/18 15:00 Temperature 98.2 F Pulse Rate 92 H 80 92 H Respiratory Rate 18 Blood Pressure 150/69 H Pulse Oximetry 98 09/17/18 16:00 09/17/18 17:00 09/17/18 18:00 Temperature Pulse Rate 72 90 92 H Respiratory Rate Blood Pressure Pulse Oximetry 09/17/18 19:00 09/17/18 20:00 09/17/18 21:00 Temperature 97.9 F Pulse Rate 84 82 86 Respiratory Rate 17 Blood Pressure 137/77 Pulse Oximetry 95 96 09/17/18 22:00 09/17/18 23:00 09/17/18 23:36 Temperature 97.7 F Pulse Rate 67 75 Respiratory Rate 18 18 Blood Pressure 139/83 Pulse Oximetry 95 09/18/18 00:00 09/18/18 01:00 09/18/18 02:00 Temperature Pulse Rate 77 78 68 Respiratory Rate Blood Pressure Pulse Oximetry 09/18/18 03:00 09/18/18 04:00 09/18/18 05:00 Temperature 98.1 F Pulse Rate 83 85 74 Respiratory Rate 18 Blood Pressure 135/77 Pulse Oximetry 97 09/18/18 06:00 09/18/18 06:12 09/18/18 07:00 Temperature Pulse Rate 72 66 Respiratory Rate 18 Blood Pressure Pulse Oximetry Intake & Output 09/17/18 09/18/18 09/18/18 18:59 06:59 18:59 Intake Total 1100 / 1100 480 / 480 Output Total 800 / 800 800 / 800 Balance 300 / 300 -320 / -320 Weight 75.7 kg Intake: Oral 1100 / 1100 480 / 480 Output: Urine 800 / 800 800 / 800 Other: Date of Last Bowel Movement 09/17/18 09/18/18 # Bowel Movements 2 Results - Labs CBC & Chem 7: 09/14/18 23:47 09/16/18 04:28 - Procedures pacemaker. Assessment and Plan - Assessment (1) Atrial fibrillation with rapid ventricular response Code(s): I48.91 - Unspecified atrial fibrillation Status: Acute Plan: 1. afib/rvr tachy rula syndrome Pt converted from afib to sinus but had 7 second pause. Echo 09/15: CONCLUSIONS The left ventricular systolic function is normal with an estimated ejection fraction in the range of 60-65%. Normal left ventricular size. Wall thickness is normal. No regional wall motion abnormalities are present. Diffuse calcification of the aortic valve. No aortic valve stenosis. There is trace tricuspid valve regurgitation. The estimated pulmonary arterial pressure is 32 mmHg. Trivial pulmonary valve regurgitation. stopped eliu blockers ppm placed cont pt xarelto Pt was discharged on 09/17...awaiting rehab placement. 2. hx PE. already on xarelto Of note the patient was admitted to [facility] in July for dvt nonocclusive distal left popliteal. Large clot burden bilateral pulmonary emboli with evidence of increased pulm pressure and right heart strain. suspected thrombus within the left ventricle. Pt received TPA at that time. Echo not supportive of LV thrombus. 3. hx ovarian ca/chemo induced peripheral neuropathy cont neurontin. norco 4. htn currentl bp on low side recently had ccb and diuretic held 5. copd cont nebs as needed. 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
[2018-09-18] MEDS: Rivaroxaban 20 MG Tablet PO SCH (10:16)
[2018-09-18] MEDS: Gabapentin 100 MG Capsule PO SCH ×2 (10:16→14:19)
[2018-09-18] MEDS: Docusate Sodium 100 MG Capsule PO SCH (10:16)
[2018-09-18 17:38] VITALS: RESP 18
[2018-09-18 21:28] VITALS: BP 148/82; TEMP 98.6; O2SAT 98
[2018-09-18 21:30] VITALS: PULSE 100
== END 2018-09-18 18:20 ==
LOC: NEPC 23:15 → NEDA 09-15 01:41 → HCIS 09-15 05:29
PROVIDERS: ADMIT Hospitalist; ATTEND Hospitalist

== ENCOUNTER 2018-11-26 08:36 | Inpatient (IN) ==
--- NOTE | 2018-11-26 08:48 | ED ---
HPI General Chief Complaint: Stroke Alert Stated Complaint: Stroke Alert Time Seen by Provider: 11/26/18 08:41 Source: patient and EMS Mode of arrival: EMS Limitations: no limitations History of Present Illness HPI Narrative: The patient is a 82-year-old female who presents to the emergency department via EMS as a stroke alert. According to EMS the patient was with a pricing specialist and was going to physical therapy earlier today for chronic leg weakness when the patient apparently became confused, was unconscious, and mostly nonresponsive. Apparently the physician at the chemotherapy center came out and assessed the patient who is an awake and alert , the patient was noted to have some dysarthria with left-sided deficits. A stroke alert was called in the field. The patient was last seen normal at 7:30 AM. EMS states that the patient's speech has improved since they arrived, but the patient continues to have left-sided deficits with the left arm and left leg. The patient does have a history of atrial fibrillation and was in A. fib with RVR when EMS arrived. EMS administered the patient 20 mg of Cardizem intravenously. The patient is anticoagulated on Xarelto. Upon arrival the patient is able to follow commands, is noted to have weakness to the left arm and the left leg, speech appear to be normal with a slight accent. Onset (ago): minute(s) Time: 07:30 Timing confirmed by: caregiver Location: Reports speech, left arm and left leg History of same: No Severity: moderate Quality: Reports weak Relieving factors: time Exacerbating factors: none Context: Reports sudden onset On Anticoagulants: Yes Associated symptoms: Reports confusion Treatments Prior to Arrival: Reports none Related Data Home Medications Medication Instructions Recorded Confirmed cholecalciferol (vitamin D3) 400 unit PO DAILY 11/26/18 11/26/18 [Vitamin D3] duloxetine 60 mg PO DAILY 11/26/18 11/26/18 omega 7-mqw-xrl-fish oil [Fish Oil] PO DAILY 11/26/18 pravastatin 40 mg PO DAILY 11/26/18 11/26/18 rivaroxaban [Xarelto] 20 mg PO DAILY 11/26/18 11/26/18 Allergies Allergy/AdvReac Type Severity Reaction Status Date / Time penicillin G Allergy Mild Hives Verified 11/26/18 09:02 Review of Systems ROS: all other systems reviewed are negative [facility] Social History Social History Substance History: No History of Abuse Second Hand Smoke Exposure: No Smoking Status: Former smoker Tobacco Type: Cigarettes Years Smoked: 20 Number of Pack-Years (if former smoker): 20 Smoking End Date: How Often Do You Have a Drink Containing Alcohol: Monthly or less Hx Recent Travel: No Recent Travel in [facility] within the Last 8 Weeks: No Recent Out of Country Travel within the Last 8 Weeks: No Exam Narrative Exam Narrative: GENERAL: Awake, alert, 82-year-old female appears her stated age and is in no acute respiratory distress. SKIN: Focused skin assessment warm/dry. HEAD: Atraumatic. Normocephalic. EYES: Pupils equal and round. 3 mm bilateral and reactive. EOMs are intact. Patient is able to see fingers at a distance of 2 feet without difficulty. Visual jaeger appear symmetric. ENT: No nasal bleeding or discharge. Mucous membranes pink and moist. NECK: Trachea midline. No JVD. CARDIOVASCULAR: Irregularly irregular, tachycardic with a heart rate of 100. RESPIRATORY: No accessory muscle use. Clear to auscultation. Breath sounds equal bilaterally. GASTROINTESTINAL: Abdomen soft, non-tender, nondistended. MUSCULOSKELETAL: No obvious deformities. No clubbing. No cyanosis. No edema. NEUROLOGICAL: Awake and alert. No obvious cranial nerve deficits. Patient is able to identify how many fingers are on the hand, 5. Patient oriented to name and place. Drift of the left arm noted, falls to the bed prior to 5 seconds. Drift to the left leg noted, falls to the bed prior to 5 seconds. Patient has mild drift of the right leg but is able to hold it upright. Finger to nose is normal on the right. Finger to nose on the left was abnormal. Patient is unable to put the left heel to the right henley. Right heel to left henley was normal. Sensation was symmetric on the face, arms, and legs. Smile is symmetric. No obvious dysarthria, mild accent noted. Visual jaeger appear symmetric. PSYCHIATRIC: Appropriate mood and affect; insight and judgment normal. Course Initial Documented Vital Signs Pulse Rate 96 H 11/26/18 08:43 Respiratory Rate 20 11/26/18 08:43 Blood Pressure 131/107 H 11/26/18 08:43 Pulse Oximetry 96 11/26/18 08:43 Last Documented Vital Signs Pulse Rate 79 12/27/18 09:34 Respiratory Rate 18 11/26/18 09:34 Blood Pressure 137/69 11/26/18 09:34 Pulse Oximetry 98 11/26/18 09:34 NIH Stroke Scale NIHSS Time Completed NIHSS Time Completed: 08:40 NIH Stroke Scale Level of Consciousness: 0-Alert Orientation Questions: 0-Answers both correct Responds to Commands: 0-Both tasks correct Gaze Eye Movement: 0-Horizontal movement WNL Visual Jaeger: 0-No visual field defect Facial Movement: 0-Normal Motor Functions Arm LEFT: 2-Falls before 10 seconds Motor Functions Arm RIGHT: 0-No drift Motor Functions Leg LEFT: 2-Falls before 5 seconds Motor Functions Leg RIGHT: 0-No drift Limb Ataxia: 2-Ataxia in two limbs Sensory Loss: 0-No sensory loss Best Language: 0-Normal Articulation: 0-Normal Extinction or Inattention Sensory: 0-Absent Total: 6 Medical Decision Making MDM Narrative Medical decision making narrative: A stroke alert was called in the field. The patient was placed on a stroke stretcher in room echo 56, and a weight was obtained. A stroke scale was obtained, the patient's NIHSS was 6. Dr. Acosta , the neurologist, evaluated the patient in the emergency department prior to CT. IV was established, labs are drawn and sent, i-STAT was obtained, the patient was placed on cardiac telemetry monitoring and continuous pulse oximetry monitoring. The patient then went immediately to CT for CT the brain, CTA of the head and neck, and CT perfusion. Dr. Zavala notified me that the CT of the brain was negative. The patient is on Xarelto, is not a candidate for IV TPA, may be a candidate for interventional radiology if there is a thrombus noted. CT of the brain is negative for hemorrhage. CTA of the head and neck and CT perfusion are negative. The patient was reevaluated at 9:45 AM, she no longer had drift of the left upper extremity. It appears the patient had a TIA. Patient had A. fib with RVR when EMS arrived, she was administered Cardizem, and came in with A. fib at a heart rate of 100, however, when EKG was performed it appeared the patient was back in a sinus rhythm. The [facility], therefore, the on-[facility] physician was paged for 23-hour observation. Patient may benefit from echocardiogram to ensure there is no intraventricular thrombus, patient is currently a anticoagulated with Xarelto. Medical Screen Exam Complete: Yes Emergency Medical Condition: Yes Differential Diagnosis Differential Diagnosis: Differential diagnosis includes CVA, TIA, intracranial hemorrhage, atrial fibrillation with RVR, acute transient neurologic deficit. Lab Data Result diagrams: 11/26/18 08:39 Lab Results 11/26/18 11/26/18 11/26/18 Range/Units 08:39 08:39 08:39 WBC 12.5 H (4.0-11.0) th/mm3 RBC 4.38 (4.00-5.30) mil/mm3 Hgb 14.5 (11.6-15.3) gm/dL POC Hgb (Calc) 15.6 H (11.6-15.3) g/dL Hct 41.5 (35.0-46.0) % POC Hct 46.0 (35-46.0) % MCV 94.8 (80.0-100.0) fL MCH 33.0 (27.0-34.0) pg MCHC 34.9 (32.0-36.0) % RDW 14.3 (11.6-17.2) % Plt Count 218 (150-450) th/mm3 MPV 8.3 (7.0-11.0) fL Neut % (Auto) 72.3 H (16.0-70.0) % Lymph % (Auto) 20.9 (9.0-44.0) % Sioux % (Auto) 6.5 (0.0-8.0) % Eos % (Auto) 0.0 (0.0-4.0) % Baso % (Auto) 0.3 (0.0-2.0) % Neut # (Auto) 9.0 H (1.8-7.7) th/mm3 Lymph # (Auto) 2.6 (1.0-4.8) th/mm3 Sioux # (Auto) 0.8 (0.0-0.9) th/mm3 Eos # (Auto) 0.0 (0.0-0.4) th/mm3 Baso # (Auto) 0.0 (0.0-0.2) th/mm3 WBC Differential . Differential Comment Auto diff final PT 11.4 (9.8-11.6) sec INR 1.1 Ratio APTT 36.2 H (23.4-31.7) sec Fibrinogen 353 (227-377) mg/dL POC Sodium 138 (137-144) mmol/L POC Potassium 3.7 (3.6-5.0) mmol/L POC Chloride 98 L (102-111) mmol/L POC BUN 15 (5-21) mg/dL POC Creatinine 0.8 (0.6-1.3) mg/dL POC Glucose 151 H (68-110) mg/dL Total Creatine Kinase 189 (26-192) U/L Troponin I 0.03 (0.02-0.05) ng/mL Blood Type Antibody Screen 11/26/18 11/26/18 Range/Units 08:39 08:39 WBC (4.0-11.0) th/mm3 RBC (4.00-5.30) mil/mm3 Hgb (11.6-15.3) gm/dL POC Hgb (Calc) (11.6-15.3) g/dL Hct (35.0-46.0) % POC Hct (35-46.0) % MCV (80.0-100.0) fL MCH (27.0-34.0) pg MCHC (32.0-36.0) % RDW (11.6-17.2) % Plt Count (150-450) th/mm3 MPV (7.0-11.0) fL Neut % (Auto) (16.0-70.0) % Lymph % (Auto) (9.0-44.0) % Sioux % (Auto) (0.0-8.0) % Eos % (Auto) (0.0-4.0) % Baso % (Auto) (0.0-2.0) % Neut # (Auto) (1.8-7.7) th/mm3 Lymph # (Auto) (1.0-4.8) th/mm3 Sioux # (Auto) (0.0-0.9) th/mm3 Eos # (Auto) (0.0-0.4) th/mm3 Baso # (Auto) (0.0-0.2) th/mm3 WBC Differential Differential Comment PT (9.8-11.6) sec INR Ratio APTT (23.4-31.7) sec Fibrinogen (227-377) mg/dL POC Sodium (137-144) mmol/L POC Potassium (3.6-5.0) mmol/L POC Chloride (102-111) mmol/L POC BUN (5-21) mg/dL POC Creatinine (0.6-1.3) mg/dL POC Glucose 143 H (68-110) mg/dL Total Creatine Kinase (26-192) U/L Troponin I (0.02-0.05) ng/mL Blood Type O Negative Antibody Screen Negative Imaging Data Radiologist's impression: CT CAD 11/26/18 08:41 CONCLUSION: Physiological brain perfusion parameters with RAPID analysis as above. The decision for consideration of therapy is multi factorial and multi disciplinary relying on subjective and objective clinical data. This data is not construed or intended to be the sole determinant of treatment eligibility. Head CT 11/26/18 08:41 CONCLUSION: 1. No acute hemorrhage, midline shift or extra-axial fluid collections. 2. Severe periventricular and subcortical white matter small vessel ischemic changes bilaterally. 3. Old lacunar infarcts within left basal ganglia. 4. Cerebral atrophy. Report was called by Dr. Zavala to Dr. Beck at 8:55 AM on 11/26/2018. Head CTA 11/26/18 08:41 CONCLUSION: Negative CTA Head. Neck CTA 11/26/18 08:41 CONCLUSION: 1. No significant carotid or vertebral stenosis. ECG Data EKG Prior to Arrival: No Attestation: I personally reviewed and interpreted this ECG as follows: Interpretation: EKG reveals normal sinus rhythm with a rate 81. Q waves noted in lead III and aVF. Discharge Plan Discharge Disposition Patient Disposition: ED Admit(ED Internal Use Only) Discharge Condition Condition: Stable Discharge Details Diagnosis: Brain TIA Physicians Team ED Provider: Larry Beck Primary Care Provider: UNKNOWN, Other Providers: Booker Acosta Rxs /Orders / Referrals /Forms Prescriptions: No Action pravastatin 40 mg Tablet 40 mg PO DAILY RF: 0 cholecalciferol (vitamin D3) [Vitamin D3] 400 unit Tablet 400 unit PO DAILY RF: 0 duloxetine 30 mg Capsule,Delayed Release(Dr/Ec) 60 mg PO DAILY RF: 0 rivaroxaban [Xarelto] 20 mg Tablet 20 mg PO DAILY RF: 0 omega 9-zvr-fwi-fish oil [Fish Oil] 1,000 mg (120 mg-180 mg) Capsule PO DAILY RF: 0 Discharge Interventions Interventions: Vital Signs Last Done: 11/26/18 09:34 Status ED Status: Pending Admission
[2018-11-26 08:54] LABS: Baso % (Auto) 0.3 % (0.0-2.0); Hematocrit 41.5 % (35.0-46.0); Hemoglobin 14.5 gm/dL (11.6-15.3); Lymph # (Auto) 2.6 th/mm3 (1.0-4.8); Lymph % (Auto) 20.9 % (9.0-44.0); Mean Corpuscular HGB Conc 34.9 % (32.0-36.0); Mean Corpuscular Volume 94.8 fL (80.0-100.0); Mean Platelet Volume 8.3 fL (7.0-11.0); Mono # (Auto) 0.8 th/mm3 (0.0-0.9); Mono % (Auto) 6.5 % (0.0-8.0); Neut % (Auto) 72.3 % (16.0-70.0); Platelet Count 218 th/mm3 (150-450); Red Blood Count 4.38 mil/mm3 (4.00-5.30); Red Cell Distribution Width 14.3 % (11.6-17.2); White Blood Count 12.5 th/mm3 (4.0-11.0)
--- NOTE | 2018-11-26 08:57 | CT ---
EXAM DATE: 11/26/2018 8:52 AM EST AGE/SEX: 82 years / Female INDICATIONS: Stroke alert, left sided weakness. CLINICAL DATA: This is the patient's initial encounter. Patient reports that signs and symptoms have been present for 1 day and indicates a pain score of 10/10. MEDICAL/SURGICAL HISTORY: Non-responsive. Non-responsive. RADIATION DOSE: 52.83 CTDI (mGy) COMPARISON: [facility] [place], CT CEREBRAL PERF W CONTRAST W 3D, 11/26/2018. . TECHNIQUE: CT of the head without contrast. Using automated exposure control and adjustment of the mA and/or kV according to patient size, radiation dose was kept as low as reasonably achievable to ob tain optimal diagnostic quality images. DICOM format image data is available electronically for revi ew and comparison. FINDINGS: Cerebrum: Cerebral atrophy is noted. Severe periventricular and subcortical white matter small vesse l ischemic changes are noted bilaterally. Old lacunar infarcts are noted within left basal ganglia. N o acute hemorrhage, midline shift or extra-axial fluid collections are noted. Posterior Fossa: The cerebellum and brainstem are intact. The 4th ventricle is midline. The cerebe llopontine angle is unremarkable. Extracranial: The visualized portion of the orbits is intact. Skull: The calvaria is intact. No evidence of skull fracture. CONCLUSION: 1. No acute hemorrhage, midline shift or extra-axial fluid collections. 2. Severe periventricular and subcortical white matter small vessel ischemic changes bilaterally. 3. Old lacunar infarcts within left basal ganglia. 4. Cerebral atrophy. Report was called by Dr. Zavala to Dr. Beck at 8:55 AM on 11/26/2018. Electronically signed by: Champ Zavala MD Board Certified Radiologist 11/26/2018 8:56 AM EST
[2018-11-26] MEDS: Sod Chloride 0.9% Inj 1,000 ML IV.CONT SCH (09:03)
[2018-11-26 09:06] LABS: Activated Partial Thrombo Time 36.2 sec (23.4-31.7); INR 1.1 Ratio; Prothrombin Time 11.4 sec (9.8-11.6)
[2018-11-26 09:14] LABS: Troponin I 0.03 ng/mL (0.02-0.05)
--- NOTE | 2018-11-26 09:33 | CT ---
EXAM DATE: 11/26/2018 9:18 AM EST AGE/SEX: 82 years / Female INDICATIONS: Stroke alert. Left sided weakness. CLINICAL DATA: This is the patient's initial encounter. Patient reports that signs and symptoms have been present for 1 day and indicates a pain score of 0/10. MEDICAL/SURGICAL HISTORY: Non-responsive. Non-responsive. RADIATION DOSE: 9.58 CTDI (mGy) ; Combined studies COMPARISON: [facility] [place], CT HEAD W/O CONTRAST, 11/26/2018. . TECHNIQUE: Volumetric scanning was performed using a multi-row detector CT scanner during bolus infu yuan of 60 ml Visipaque 320 (iodixanol) nonionic water-soluble contrast as a cumulative dose for mul tiple exams. The data was post processed with a variety of visualization algorithms including full volume maximum intensity projection, multi-planar sliding thin slab reformation, curved planar reform ation, and surface rendering techniques. Using automated exposure control and adjustment of the mA a nd/or kV according to patient size, radiation dose was kept as low as reasonably achievable to obtain optimal diagnostic quality images. DICOM format image data is available electronically for review a nd comparison. FINDINGS: There is excellent visualization of the major intracranial arteries out to the second-order branch ve ssels. There is no evidence for aneurysm, vessel truncation or stenosis, and no evidence for vascula r malformation. CONCLUSION: Negative CTA Head. Electronically signed by: Enio Hernández MD Board Certified Radiologist 11/26/2018 9:32 AM EST
--- NOTE | 2018-11-26 09:42 | CT ---
EXAM DATE: 11/26/2018 9:34 AM EST AGE/SEX: 82 years / Female INDICATIONS: Stroke alert, left sided weakness. CLINICAL DATA: This is the patient's initial encounter. Patient reports that signs and symptoms have been present for 1 day and indicates a pain score of Nonresponsive. MEDICAL/SURGICAL HISTORY: Non-responsive. Non-responsive. RADIATION DOSE: 9.58 CTDI (mGy) ; Combined studies COMPARISON: . TECHNIQUE: Volumetric scanning was performed using a multirow detector CT scanner during bolus infus ion of 60 ml Visipaque 320 (iodixanol) nonionic water-soluble contrast as a cumulative dose for mult iple exams. The data was postprocessed with a variety of visualization algorithms including full-vo lume maximum intensity projection, multiplanar sliding thin-slab reformation, curved-planar reformati on, and surface-rendering techniques. Using automated exposure control and adjustment of the mA and/ or kV according to patient size, radiation dose was kept as low as reasonably achievable to obtain op timal diagnostic quality images. DICOM format image data is available electronically for review and comparison. FINDINGS: Aortic Arch: There is a bovine arch. No evidence of ostial narrowing Right Carotid: The common carotid artery is intact. The carotid bulb has a normal configuration wit hout ulceration or narrowing. The internal carotid artery lumen is smooth without stenosis. Minimal calcified atherosclerotic plaque is noted within the proximal internal carotid artery. The external c arotid artery is intact. Left Carotid: The common carotid artery is intact. The carotid bulb has a normal configuration with out ulceration or narrowing. The internal carotid artery lumen is smooth without stenosis. Minimal c alcified atherosclerotic plaque is noted within the proximal internal carotid artery. The external ca rotid artery is intact. Vertebrals: The vertebral arteries have a symmetric diameter. No stenotic lesions are seen. Percent stenosis is calculated using the diameter of the stenotic region over the diameter of the nor mal distal internal carotid artery. CONCLUSION: 1. No significant carotid or vertebral stenosis. Electronically signed by: Champ Zavala MD Board Certified Radiologist 11/26/2018 9:40 AM EST
--- NOTE | 2018-11-26 09:45 | CT ---
EXAM DATE: 11/26/2018 9:39 AM EST AGE/SEX: 82 years / Female INDICATIONS: Stroke alert, left sided weakness. CLINICAL DATA: This is the patient's initial encounter. Patient reports that signs and symptoms have been present for 1 day and indicates a pain score of Nonresponsive. MEDICAL/SURGICAL HISTORY: Non-responsive. Non-responsive. RADIATION DOSE: 217.64 CTDI (mGy) COMPARISON: [facility], CTA HEAD W CONTRAST W 3D, 11/26/2018. . TECHNIQUE: CT of the head after intravenous administration of 40 ml Visipaque 320 (iodixanol) nonio stone water-soluble contrast as a single exam dose. Using automated exposure control and adjustment of the mA and/or kV according to patient size, radiation dose was kept as low as reasonably achievable to obtain optimal diagnostic quality images. DICOM format image data is available electronically for review and comparison. FINDINGS: 1. CBF (<30%) Volume (ml): 0 2. Perfusion (Tmax>6.0s) Volume (ml): 246 3. Mismatch Volume (ml) (Tmax>6.0 - CBF): 246 CONCLUSION: Physiological brain perfusion parameters with RAPID analysis as above. The decision for consideration of therapy is multi factorial and multi disciplinary relying on subjec tive and objective clinical data. This data is not construed or intended to be the sole determinant of treatment eligibility. Electronically signed by: Enio Hernández MD Board Certified Radiologist 11/26/2018 9:44 AM EST
[2018-11-26 09:57] LABS: Amphetamine Screen,Urine Neg (Neg); Barbiturate Screen,Urine Neg (Neg); Cannabinoid Screen,Urine Neg (Neg); Cocaine Screen,Urine Neg (Neg)
--- NOTE | 2018-11-26 09:57 | XR ---
EXAM DATE: 11/26/2018 9:53 AM EST AGE/SEX: 82 years / Female INDICATIONS: Stroke alert. CLINICAL DATA: This is the patient's initial encounter. Patient reports that signs and symptoms have been present for 1 day and indicates a pain score of Nonresponsive. MEDICAL/SURGICAL HISTORY: None. None. [place] [facility] [place] 1[place] S[place]. . FINDINGS: A single AP view of the chest demonstrates the lungs to be symmetrically aerated without evidence of mass, infiltrate or effusion. Mild chronic interstitial changes are again demonstrated bilaterally. T he cardiomediastinal contours are unremarkable. Osseous structures are intact. There is a right-lisa ed central line in place with no evidence of pneumothorax. No significant changes compared to the alexei or study. CONCLUSION: No new or acute intrathoracic disease. Stable examination. Electronically signed by: Venkat Magana MD Board Certified Radiologist 11/26/2018 9:56 AM EST
[2018-11-26 09:58] LABS: Opiate Screen,Urine Neg (Neg)
[2018-11-26 10:02] LABS: Bacteria,Urine Many /hpf; Bilirubin,Urine Negative (Negative); Clarity,Urine Hazy (Clear); Color,Urine Yellow (Yellw/Straw); Glucose,Urine (UA) Negative (Negative); Hyaline Casts,Urine 1 /lpf (0-3); Leukocyte Esterase,Urine Trace (Negative); Mucus,Urine Few /lpf (Occasional); Nitrite,Urine Negative (Negative); Specific Gravity,Urine 1.019 (1.002-1.035); Squamous Epithelial Cell,Urine 1 /hpf (0-5)
--- NOTE | 2018-11-26 10:44 | MB ---
cc: Booker Acosta MD DATE: 11/26/2018 HISTORY OF PRESENT ILLNESS: An 82-year-old woman with a history of ovarian cancer, hypothyroidism, hypercholesterolemia, who had sudden onset of weakness, left side 45 minutes ago. She is on Xarelto and tells me she took her dose this morning and usually takes it in the morning. She has a history of ovarian cancer, chemotherapy, PE, admitted for shortness of breath in August this year. She had a 7 second pause at that time. She does have a history of atrial fibrillation from Dr. 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 7 second pause. He recommended a permanent pacemaker. Has been in rehab in August, some history of chronic renal insufficiency, stage III, COPD, neuropathy of the lower extremities, more sedentary using a wheelchair, PE in July 2018, normal ejection fraction. Pacemaker placed VVIR 70 pacemaker placed. MEDICATIONS: She is on Xarelto 20 mg every morning, she said she took it this morning. ALLERGIES: PENICILLIN. REVIEW OF SYSTEMS: She denied any headache, chest pain or palpitations, any history of hypertension, diabetes, PR, stent, angioplasty. Renal, hepatic, pulmonary disease. Lupus, ulcer, seizure or prior stroke. SOCIAL HISTORY: She is not a smoker or drinker, lives by herself. FAMILY HISTORY: Negative for cancer or stroke. PHYSICAL EXAMINATION: VITAL SIGNS: On exam, sinus rhythm now, though may have been in atrial fibrillation initially when seen by the compensation analyst, 131/107, 20, 96. NECK: There were no carotid bruits. HEART: Regular rate and rhythm. I did not detect a murmur. NEUROLOGIC: Pupils are equal. Visual jaeger are full. Extraocular movements intact without nystagmus. Face is symmetric. Tongue was midline. There is a positive left drift. She had normal strength in bilateral upper and lower extremities as far as I can tell, although poor effort in the right lower extremity she says from chemo. So it is unclear if she has some weakness there, but certainly the right upper extremity and left lower extremity appeared to be normal. The left upper extremity has a drift, but her best testing of strength there on the triceps and finger extension was 5/5. She did not seem to be able to or could not dorsiflex the right foot well for me. Toes were downgoing bilaterally. Pinprick was intact in all 4 extremities and face bilaterally. She has had some slight ataxia on [id number] on the left. Her speech is fluent. She is not aphasic. She knew the month and the year. LABORATORY DATA: Creatinine is normal. Other labs are pending. She had a CBC in August that was normal. UA then was negative. Basic metabolic profile had a normal creatinine at that time. LFTs normal. TSH has been normal. Coags today are pending. She had a lumbar spine CT done. It showed an old compression fracture around L1. The CT of the abdomen in July acute fracture of L1, old compression fracture of L2. IMPRESSION: Some mild left-sided weakness, possibly some weakness in the right lower extremity with atrial fibrillation. Likely a cardioembolic event from the atrial fibrillation. Keep the head and bed flat. IV hydration. She cannot have an MRI. She is getting a CT at this time. She is not a candidate for TPA due to her being on Xarelto. Her NIH stroke scale today is a 5. MD HARLEY Alvarez/radha , 08:52 AM , 09:00 AM
[2018-11-26] MEDS ORDERED: Acetaminophen 325 MG Tablet PO PRN (11:25)
--- NOTE | 2018-11-26 11:33 | P.HPIM ---
History of Present Illness Primary Care Physician: Dr. Calix History of Present Illness: Mrs. Bai is an 82 yo with hypertension, CKD Stage III, COPD, Hx of ovarian cancer diagnosed in 12/2017 s/p surgery/chemo, chemo induced neuropathy, and pulmonary embolism/DVT in 07/2018. She was recently admitted to [facility] in 08/2018 with A. 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 2D ECHO during that admission noted left ventricular systolic function is normal with estimated ejection fraction of 60-65% and the estimated pulmonary arterial pressure was 32 mmHg. She was to continue Xarelto. She continued rehab efforts at [facility] through early October 2018. Pt presented to the ED at [facility] on 11/26/18 with sudden onset of left sided weakness. According to ED documentation the patient was with a inspector eyeglass and was going to physical therapy this morning when she became altered and nonresponsive. Apparently the therapist came out and assessed the patient who was then awake and alert, but was noted to have some dysarthria with left-sided deficits. A stroke alert was called in the field. She was found to be in A. fib RVR and was given Cardizem 20mg IV and converted to NSR. Pt was seen by Neurology in the ED as a stroke alert. TPA was not given as she is on Xarelto. Her Head CT showed no acute hemorrhage, midline shift or extra-axial fluid collections, severe periventricular and subcortical white matter small vessel ischemic changes bilaterally, old lacunar infarcts within left basal ganglia, and cerebral atrophy. The pts speech has improved to baseline. She continues to have some left sided weakness. Pt is unable to have an MRI. CTA of the Head and Neck were negative. Past Medical Hx: A. fib/RVR Tachy-rula with pauses s/p PPM in 08/2018 COPD L1 fracture s/p kyphoplasty Pulmonary embolism/DVT in 07/2018 Ovarian ca s/p chemotherapy in 12/2017 chemo induced peripheral neuropathy CKD, stage 3 HTN Past Surgical Hx: PPM on 09/16/18 Kyphoplasty Thyroidectomy ORLIN/BSO T/A Family Hx: lymphoma/panc ca Social Hx: Hx of tobacco use, 20yrs tob. quick 1970s Alcohol use, glass beer/wine with meals Diagnosis (1) Atrial fibrillation with rapid ventricular response: (2) COPD (chronic obstructive pulmonary disease): (3) Hypertension: (4) Ovarian cancer: (5) Brain TIA: Medications and Allergies Allergies Allergy/AdvReac Type Severity Reaction Status Date / Time penicillin G Allergy Mild Hives Verified 11/26/18 09:02 Home Medications Medication Instructions Recorded Confirmed Type cholecalciferol (vitamin D3) 400 unit PO DAILY 11/26/18 11/26/18 History [Vitamin D3] duloxetine 60 mg PO DAILY 11/26/18 11/26/18 History omega 5-rly-pii-fish oil [Fish Oil] 1 cap PO DAILY 11/26/18 11/26/18 History pravastatin 40 mg PO DAILY 11/26/18 11/26/18 History rivaroxaban [Xarelto] 20 mg PO DAILY 11/26/18 11/26/18 History Active Medications: Active Medications Acetaminophen (Tylenol) 650 mg PO Q4H PRN PRN Reason: Temp > 100.4 Al Hydroxide/Mg Hydroxide (Milk Of Elizabeth Schultz) 30 ml PO Q12H PRN PRN Reason: Mild Constipation Duloxetine HCl (Cymbalta) 60 mg PO DAILY [facility] Sodium Chloride (Ns Inj) 1,000 mls @ 70 mls/hr IV.CONT .[id number] [facility] Last Admin: 11/26/18 09:03 Dose: 70 mls/hr Non-Formulary Medication ([place] 1-Qdh-Rsy-Fish Oil [Fish Oil]) 1 cap PO DAILY [facility] Ondansetron HCl (Zofran Inj) 4 mg IV.PUSH Q6H PRN PRN Reason: NAUSEA OR VOMITING Pravastatin Sodium (Pravachol) 40 mg PO DAILY [facility] Rivaroxaban (Xarelto) 20 mg PO DAILY [facility] Senna/Docusate Sodium (Shannen-Colace) 1 tab PO BID [facility] Sodium Chloride (Ns Flush) 2 ml IV.FLUSH BID [facility] Sodium Chloride (Ns Flush) 2 ml IV.FLUSH PRN PRN PRN Reason: FLUSH AFTER USING IV ACCESS Vitamin D (Vitamin D3) 400 unit PO DAILY [facility] Physical Exam Vital signs: Last Vital Signs Pulse 83 11/26/18 09:50 Resp 16 11/26/18 09:50 BP 135/76 11/26/18 09:50 Pulse Ox 99 11/26/18 09:50 Narrative: GENERAL: NAD, AAOx3 SKIN: Warm and dry. HEENT: Atraumatic. Normocephalic. Pupils equal and round. No scleral icterus. No injection or drainage. No nasal bleeding or discharge. Mucous membranes pink and moist. NECK: Trachea midline. No JVD. CARDIO: Regular rate and rhythm. RESP: No accessory muscle use. Clear to auscultation. Breath sounds equal bilaterally. ABD: +BS, soft, non-tender, nondistended. Hepatic and splenic margins not palpable. EXT: Extremities without clubbing, cyanosis, or edema. No obvious deformities. NEURO: Awake and alert. No obvious cranial nerve deficits. Motor grossly within normal limits. Five out of 5 muscle strength in the arms and legs. Normal speech. PSYCH: Appropriate mood and affect; insight and judgment normal. Results Labs CBC & Chem 7: 11/26/18 08:[address] CAD 11/26/18 08:41 CONCLUSION: Physiological brain perfusion parameters with RAPID analysis as above. The decision for consideration of therapy is multi factorial and multi disciplinary relying on subjective and objective clinical data. This data is not construed or intended to be the sole determinant of treatment eligibility. Chest X-Ray 11/26/18 08:41 CONCLUSION: No new or acute intrathoracic disease. Stable examination. Head CT 11/26/18 08:41 CONCLUSION: 1. No acute hemorrhage, midline shift or extra-axial fluid collections. 2. Severe periventricular and subcortical white matter small vessel ischemic changes bilaterally. 3. Old lacunar infarcts within left basal ganglia. 4. Cerebral atrophy. Report was called by Dr. Zavala to Dr. Beck at 8:55 AM on 11/26/2018. Head CTA 11/26/18 08:41 CONCLUSION: Negative CTA Head. Neck CTA 11/26/18 08:41 CONCLUSION: 1. No significant carotid or vertebral stenosis. Caprini VTE Risk Assessment Caprini VTE Risk Assessment: Moderate/High Risk (score >= 2) Caprini Risk Assessment Model: Point Value = 1 Point Value = 2 Point Value = 3 Point Value = 5 Age 41-60 Minor surgery BMI > 25 kg/m2 Swollen legs Varicose veins or History of unexplained or recurrent spontaneous Oral contraceptives or hormone replacement Sepsis (< 1 month) Serious lung disease, including pneumonia (< 1 month) Abnormal pulmonary function Acute myocardial infarction Congestive heart failure (< 1 month) History of inflammatory bowel disease Medical patient at bed rest Age 61-74 Arthroscopic surgery Major open surgery (> 45 min) Laparoscopic surgery (> 45 min) Malignancy Confined to bed (> 72 hours) Immobilizing plaster cast Central venous access Age >= 75 History of VTE Family history of VTE Factor V Leiden Prothrombin [id number] Lupus anticoagulant Anticardiolipin antibodies Elevated serum homocysteine Heparin-induced thrombocytopenia Other congenital or acquired thrombophilia Stroke (< 1 month) Elective arthroplasty Hip, pelvis, or leg fracture Acute spinal cord injury (< 1 month) Prophylaxis Regimen: Total Risk Factor Score Risk Level Prophylaxis Regimen 0-1 Low Early ambulation 2 Moderate Order ONE of the following: *Sequential Compression Device (SCD) *Heparin 5000 units SQ BID 3-4 Higher Order ONE of the following medications: *Heparin 5000 units SQ TID *Enoxaparin/Lovenox 40 mg SQ daily (WT < 150 kg, CrCl > 30 mL/min) *Enoxaparin/Lovenox 30 mg SQ daily (WT < 150 kg, CrCl > 10-29 mL/min) *Enoxaparin/Lovenox 30 mg SQ BID (WT < 150 kg, CrCl > 30 mL/min) AND/OR *Sequential Compression Device (SCD) 5 or more Highest Order ONE of the following medications: *Heparin 5000 units SQ TID (Preferred with Epidurals) *Enoxaparin/Lovenox 40 mg SQ daily (WT < 150 kg, CrCl > 30 mL/min) *Enoxaparin/Lovenox 30 mg SQ daily (WT < 150 kg, CrCl > 10-29 mL/min) *Enoxaparin/Lovenox 30 mg SQ BID (WT < 150 kg, CrCl > 30 mL/min) AND *Sequential Compression Device (SCD) Assessment and Plan Assessment (1) Brain TIA: Code(s): G45.9 - Transient cerebral ischemic attack, unspecified Status: Acute (2) Atrial fibrillation with rapid ventricular response: Code(s): I48.91 - Unspecified atrial fibrillation Status: Acute Onset Date: ~09/15/18 (3) COPD (chronic obstructive pulmonary disease): Code(s): J44.9 - Chronic obstructive pulmonary disease, unspecified Status: Chronic (4) Hypertension: Code(s): I10 - Essential (primary) hypertension Status: Chronic Onset Date: ~12/2017 (5) Ovarian cancer: Code(s): C56.9 - Malignant neoplasm of unspecified ovary Status: Chronic Onset Date: ~12/15/17 Plan Transient neurological deficit, felt to most likely be secondary to TIA - Pt is an 82 yo female with hypertension, CKD Stage III, COPD, Hx of ovarian cancer diagnosed in 12/2017 s/p surgery/chemo, chemo induced neuropathy, and pulmonary embolism/DVT in 07/2018. She was recently admitted to [facility] in 08/2018 with A. 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 2D ECHO during that admission noted left ventricular systolic function is normal with estimated ejection fraction of 60-65% and the estimated pulmonary arterial pressure was 32 mmHg. She was to continue Xarelto. - Pt presented to the ED at [facility] on 11/26/18 with sudden onset AMS, dysarthria and left sided weakness. She was found to be in A. fib RVR and was given Cardizem 20mg IV and converted to NSR. - Pt was seen by Neurology in the ED as a stroke alert. TPA was not given as she is on Xarelto. - Head CT (11/26/18) --> No acute hemorrhage, midline shift or extra-axial fluid collections, severe periventricular and subcortical white matter small vessel ischemic changes bilaterally, old lacunar infarcts within left basal ganglia, and cerebral atrophy. - Head CTA (11/26/18): Negative CTA Head. - Neck CTA (11/26/18): No significant carotid or vertebral stenosis. - The pts speech has improved to baseline. Her left sided weakness is also improving. - Pt is unable to have an MRI. - Cont. IVF - HOB flat - Pt passed bedside swallow evaluation, ok for cardiac diet - Cont. Xarelto - Cont. statin - Lipid panel in AM - Check Hgb A1C - PT/OT - DVT prophylaxis with Xarelto and SCDs A. fib/RVR Tachy-rula syndrome s/p PPM - Pt converted from A.fib/RVR to NSR after a dose of Cardizem - Previous 2D Echo (09/15/18): The left ventricular systolic function is normal with an estimated ejection fraction in the range of 60-65%. Normal left ventricular size. Wall thickness is normal. No regional wall motion abnormalities are present. Diffuse calcification of the aortic valve. No aortic valve stenosis. There is trace tricuspid valve regurgitation. The estimated pulmonary arterial pressure is 32 mmHg. Trivial pulmonary valve regurgitation. - Cont pt Xarelto Hx PE/DVT - Cont. Xarelto Hx of ovarian ca/chemo induced peripheral neuropathy - Cont. Duloxetine for pain control HTN - BP is stable - Cont. to monitor _ (1) Ovarian cancer Qualifiers: Laterality: (2) COPD (chronic obstructive pulmonary disease) Qualifiers: COPD type: emphysema Chronic bronchitis type: Emphysema type: unspecified Qualified Code(s): J43.9 - Emphysema, unspecified (3) Hypertension Qualifiers: Hypertension type: essential hypertension Qualified Code(s): I10 - Essential (primary) hypertension
[2018-11-26 16:44] LABS: Hemoglobin A1c 5.4 % (4.3-6.0)
[2018-11-26] MEDS: Acetaminophen 325 MG Tablet PO PRN (16:50)
--- NOTE | 2018-11-26 19:49 | ECG ---
Date Performed: 11/26/2018 Time Performed: 09:17:01 PTAGE: 82 years EKG: Sinus rhythm POSSIBLE LEFT ATRIAL ENLARGEMENT PROBABLE INFERIOR MYOCARDIAL INFARCTION Since the previous tracing, no significant change noted ABNORMAL ECG PREVIOUS TRACING : 09/16/2018 09.12 DOCTOR: Leida Michel Interpretating Date/Time 11/26/2018 19:47:21
[2018-11-26] MEDS: Senna/Docusate Sodium 8.6/50 MG Tablet PO SCH (22:36)
[2018-11-27] MEDS: Sod Chloride 0.9% Inj 1,000 ML IV.CONT SCH ×3 (01:13→15:40)
[2018-11-27 05:32] LABS: Baso % (Auto) 0.3 % (0.0-2.0); Eos # (Auto) 0.1 th/mm3 (0.0-0.4); Eos % (Auto) 0.9 % (0.0-4.0); Hematocrit 41.5 % (35.0-46.0); Hemoglobin 13.7 gm/dL (11.6-15.3); Lymph # (Auto) 2.7 th/mm3 (1.0-4.8); Lymph % (Auto) 24.4 % (9.0-44.0); Mean Corpuscular Hemoglobin 31.6 pg (27.0-34.0); Mean Corpuscular Volume 95.8 fL (80.0-100.0); Mean Platelet Volume 8.8 fL (7.0-11.0); Mono % (Auto) 9.3 % (0.0-8.0); Neut # (Auto) 7.2 th/mm3 (1.8-7.7); Neut % (Auto) 65.1 % (16.0-70.0); Platelet Count 206 th/mm3 (150-450); Red Blood Count 4.33 mil/mm3 (4.00-5.30); White Blood Count 11.1 th/mm3 (4.0-11.0)
[2018-11-27] MEDS: Acetaminophen 325 MG Tablet PO PRN (05:51)
[2018-11-27 06:03] LABS: Calcium 8.2 mg/dL (8.5-10.1); Carbon Dioxide 26.6 meq/L (21.0-32.0); Potassium 3.5 meq/L (3.5-5.1)
[2018-11-27 06:06] LABS: Chol/HDL Ratio 2.84 Ratio
--- NOTE | 2018-11-27 07:14 | P.PNNEU ---
Subjective Active Medications: Active Medications Acetaminophen (Tylenol) 650 mg PO Q4H PRN PRN Reason: pain 2-10, fever Last Admin: 11/27/18 05:51 Dose: 650 mg Al Hydroxide/Mg Hydroxide (Milk Of Elizabeth Schultz) 30 ml PO Q12H PRN PRN Reason: Mild Constipation Duloxetine HCl (Cymbalta) 60 mg PO HS [facility] Sodium Chloride (Ns Inj) 1,000 mls @ 70 mls/hr IV.CONT .[id number] [facility] Last Admin: 11/27/18 01:13 Dose: 70 mls/hr Ondansetron HCl (Zofran Inj) 4 mg IV.PUSH Q6H PRN PRN Reason: NAUSEA OR VOMITING Pravastatin Sodium (Pravachol) 40 mg PO HS [facility] Rivaroxaban (Xarelto) 20 mg PO DAILY [facility] Senna/Docusate Sodium (Shannen-Colace) 1 tab PO BID [facility] Last Admin: 11/26/18 22:36 Dose: Not Given Sodium Chloride (Ns Flush) 2 ml IV.FLUSH BID [facility] Last Admin: 11/26/18 22:37 Dose: 2 ml Sodium Chloride (Ns Flush) 2 ml IV.FLUSH PRN PRN PRN Reason: FLUSH AFTER USING IV ACCESS Vitamin D (Vitamin D3) 400 unit PO DAILY [facility] Allergies/Adverse Reactions: Allergies Allergy/AdvReac Type Severity Reaction Status Date / Time penicillin G Allergy Mild Hives Verified 11/26/18 09:02 Physical Exam Vital signs: Vital Signs 11/26/18 08:43 11/26/18 08:47 11/26/18 08:49 Temperature Pulse Rate 96 H 97 H Respiratory Rate 20 Blood Pressure 131/107 H Pulse Oximetry 96 96 11/26/18 09:02 11/26/18 09:18 11/26/18 09:31 Temperature Pulse Rate 88 81 87 Respiratory Rate 16 18 16 Blood Pressure 97/53 L 117/57 L 137/69 Pulse Oximetry 95 95 96 11/26/18 09:34 11/26/18 09:50 11/26/18 11:25 Temperature Pulse Rate 79 83 71 Respiratory Rate 18 16 18 Blood Pressure 137/69 135/76 156/74 H Pulse Oximetry 98 99 96 11/26/18 12:00 11/26/18 16:00 11/26/18 20:26 Temperature 97.4 F L 98.0 F 97.8 F Pulse Rate 73 86 84 Respiratory Rate 20 20 18 Blood Pressure 134/62 163/73 H 116/59 L Pulse Oximetry 98 94 L 93 L 11/26/18 20:37 11/27/18 01:12 11/27/18 04:48 Temperature 97.8 F 97.8 F Pulse Rate 85 84 Respiratory Rate 18 18 Blood Pressure 148/71 H 154/80 H Pulse Oximetry 93 L 95 97 Intake & Output 11/26/18 11/27/18 11/27/18 18:59 06:59 18:59 Intake Total 1240 / 1240 Balance 1240 / 1240 Weight 68.039 kg 69.1 kg Intake: IV 1000 / 1000 NS Inj 1,000 ML @ 70 mls/hr IV. 1000 / 1000 CONT .[id number] [facility] Rx#:[id number] Oral 240 / 240 Other: # Voids 1 Weight On Admission 68.039 kg Narrative: speech clear vff face sym 5/5 bue and ble x old bilat foot drop - Urinary Catheter Management Straight Cath placed during this visit: yes Reason for continuing: Not indwelling catheter Insertion date: 11/26/18 Insertion time: 09:33 Objective Laboratory Results - last 24 hr 11/26/18 11/26/18 11/26/18 08:39 08:39 08:39 WBC 12.5 H RBC 4.38 Hgb 14.5 POC Hgb (Calc) 15.6 H Hct 41.5 POC Hct 46.0 MCV 94.8 MCH 33.0 MCHC 34.9 RDW 14.3 Plt Count 218 MPV 8.3 Neut % (Auto) 72.3 H Lymph % (Auto) 20.9 [place] % (Auto) 6.5 Eos % (Auto) 0.0 Baso % (Auto) 0.3 Neut # (Auto) 9.0 H Lymph # (Auto) 2.6 [place] # (Auto) 0.8 Eos # (Auto) 0.0 Baso # (Auto) 0.0 WBC Differential . Differential Comment Auto diff final PT 11.4 INR 1.1 APTT 36.2 H Fibrinogen 353 POC Sodium 138 Sodium POC Potassium 3.7 Potassium POC Chloride 98 L Chloride Carbon Dioxide Anion Gap POC BUN 15 BUN Creatinine POC Creatinine 0.8 Estimated GFR POC Glucose 151 H Random Glucose Hemoglobin A1c Calcium Total Creatine Kinase 189 Troponin I 0.03 Triglycerides Cholesterol LDL Cholesterol, Calc HDL Cholesterol Cholesterol/HDL Ratio Urine Color Urine Clarity Urine pH Ur Specific [place] Urine Protein Urine Glucose (UA) Urine Ketones Urine Occult Blood Urine Nitrate Urine Bilirubin Urine Urobilinogen Ur Leukocyte Esterase Urine RBC Urine WBC Ur Squamous Epith Cells Urine Bacteria Hyaline Casts Urine Mucus Micro UA Comment Ur Microscopic Review Urine Culture Comments Urine Opiates Screen Ur Barbiturates Screen Ur Amphetamines Screen U Benzodiazepines Scrn Urine Cocaine Screen U Cannabinoids Screen Blood Type Antibody Screen 11/26/18 11/26/18 11/26/18 08:39 08:39 08:39 WBC RBC Hgb POC Hgb (Calc) Hct POC Hct MCV MCH MCHC RDW Plt Count MPV Neut % (Auto) Lymph % (Auto) [place] % (Auto) Eos % (Auto) Baso % (Auto) Neut # (Auto) Lymph # (Auto) [place] # (Auto) Eos # (Auto) Baso # (Auto) WBC Differential Differential Comment PT INR APTT Fibrinogen POC Sodium Sodium POC Potassium Potassium POC Chloride Chloride Carbon Dioxide Anion Gap POC BUN BUN Creatinine POC Creatinine Estimated GFR POC Glucose 143 H Random Glucose Hemoglobin A1c 5.4 Calcium Total Creatine Kinase Troponin I Triglycerides Cholesterol LDL Cholesterol, Calc HDL Cholesterol Cholesterol/HDL Ratio Urine Color Urine Clarity Urine pH Ur Specific [place] Urine Protein Urine Glucose (UA) Urine Ketones Urine Occult Blood Urine Nitrate Urine Bilirubin Urine Urobilinogen Ur Leukocyte Esterase Urine RBC Urine WBC Ur Squamous Epith Cells Urine Bacteria Hyaline Casts Urine Mucus Micro UA Comment Ur Microscopic Review Urine Culture Comments Urine Opiates Screen Ur Barbiturates Screen Ur Amphetamines Screen U Benzodiazepines Scrn Urine Cocaine Screen U Cannabinoids Screen Blood Type O Negative Antibody Screen Negative 11/26/18 11/26/18 11/27/18 09:30 09:30 04:29 WBC 11.1 H RBC 4.33 Hgb 13.7 POC Hgb (Calc) Hct 41.5 POC Hct MCV 95.8 MCH 31.6 MCHC 33.0 RDW 14.0 Plt Count 206 MPV 8.8 Neut % (Auto) 65.1 Lymph % (Auto) 24.4 [place] % (Auto) 9.3 H Eos % (Auto) 0.9 Baso % (Auto) 0.3 Neut # (Auto) 7.2 Lymph # (Auto) 2.7 [place] # (Auto) 1.0 H Eos # (Auto) 0.1 Baso # (Auto) 0.0 WBC Differential . Differential Comment Auto diff final PT INR APTT Fibrinogen POC Sodium Sodium POC Potassium Potassium POC Chloride Chloride Carbon Dioxide Anion Gap POC BUN BUN Creatinine POC Creatinine Estimated GFR POC Glucose Random Glucose Hemoglobin A1c Calcium Total Creatine Kinase Troponin I Triglycerides Cholesterol LDL Cholesterol, Calc HDL Cholesterol Cholesterol/HDL Ratio Urine Color Yellow Urine Clarity Hazy H Urine pH 6.0 Ur Specific [place] 1.019 Urine Protein 30 H Urine Glucose (UA) Negative Urine Ketones Trace H Urine Occult Blood Negative Urine Nitrate Negative Urine Bilirubin Negative Urine Urobilinogen Less than 2 Ur Leukocyte Esterase Trace H Urine RBC Less than 1 Urine WBC 15 H Ur Squamous Epith Cells 1 Urine Bacteria Many H Hyaline Casts 1 Urine Mucus Few H Micro UA Comment Cath-culture ind Ur Microscopic Review Not Reportable Urine Culture Comments Cath-cult indicated Urine Opiates Screen Neg Ur Barbiturates Screen Neg Ur Amphetamines Screen Neg U Benzodiazepines Scrn Neg Urine Cocaine Screen Neg U Cannabinoids Screen Neg Blood Type Antibody Screen 11/27/18 04:29 WBC RBC Hgb POC Hgb (Calc) Hct POC Hct MCV MCH MCHC RDW Plt Count MPV Neut % (Auto) Lymph % (Auto) [place] % (Auto) Eos % (Auto) Baso % (Auto) Neut # (Auto) Lymph # (Auto) [place] # (Auto) Eos # (Auto) Baso # (Auto) WBC Differential Differential Comment PT INR APTT Fibrinogen POC Sodium Sodium 136 POC Potassium Potassium 3.5 POC Chloride Chloride 101 Carbon Dioxide 26.6 Anion Gap 8 POC BUN BUN 13 Creatinine 0.71 POC Creatinine Estimated GFR 79 L POC Glucose Random Glucose 99 Hemoglobin A1c Calcium 8.2 L Total Creatine Kinase Troponin I Triglycerides 96 Cholesterol 168 LDL Cholesterol, Calc 90 HDL Cholesterol 59.0 Cholesterol/HDL Ratio 2.84 Urine Color Urine Clarity Urine pH Ur Specific [place] Urine Protein Urine Glucose (UA) Urine Ketones Urine Occult Blood Urine Nitrate Urine Bilirubin Urine Urobilinogen Ur Leukocyte Esterase Urine RBC Urine WBC Ur Squamous Epith Cells Urine Bacteria Hyaline Casts Urine Mucus Micro UA Comment Ur Microscopic Review Urine Culture Comments Urine Opiates Screen Ur Barbiturates Screen Ur Amphetamines Screen U Benzodiazepines Scrn Urine Cocaine Screen U Cannabinoids Screen Blood Type Antibody Screen Review/Management - Review/Management Plan: imp echo pend ctax2 neg ct neg mri pend pacer in labs neg plan is med team plz change to eliquis this am if mri neg dc later today on eliquis
[2018-11-27] MEDS ORDERED: Non-Formulary Drug (Omega 3-Dha-Epa-Fish Oil [Fish Oil] 1 CAP) PO SCH (09:00)
[2018-11-27] MEDS ORDERED: Rivaroxaban 20 MG Tablet PO SCH (09:00)
[2018-11-27] MEDS: Senna/Docusate Sodium 8.6/50 MG Tablet PO SCH (09:50)
--- NOTE | 2018-11-27 10:18 | P.PNIM ---
Subjective Interval history: Pt feeling better today She is talking and moving all extremities She still feels overall weak and PT recommending PT at rehab and the pt is agreeable to this. They are looking at SNFs now. Physical Exam Vital signs: Last Vital Signs Temp 98.0 F 11/27/18 07:56 Pulse 80 11/27/18 07:56 Resp 18 11/27/18 07:56 BP 148/74 H 11/27/18 07:56 Pulse Ox 97 11/27/18 09:21 Narrative: GENERAL: NAD, AAOx3 CARDIO: Regular RESP: CTA bilaterally. ABD: +BS, soft, non-tender, nondistended. EXT: Extremities without clubbing, cyanosis, or edema. Results Labs CBC & Chem 7: 11/27/18 04:29 11/27/18 04:[address] CAD 11/26/18 08:41 CONCLUSION: Physiological brain perfusion parameters with RAPID analysis as above. The decision for consideration of therapy is multi factorial and multi disciplinary relying on subjective and objective clinical data. This data is not construed or intended to be the sole determinant of treatment eligibility. Chest X-Ray 11/26/18 08:41 CONCLUSION: No new or acute intrathoracic disease. Stable examination. Head CT 11/26/18 08:41 CONCLUSION: 1. No acute hemorrhage, midline shift or extra-axial fluid collections. 2. Severe periventricular and subcortical white matter small vessel ischemic changes bilaterally. 3. Old lacunar infarcts within left basal ganglia. 4. Cerebral atrophy. Head CTA 11/26/18 08:41 CONCLUSION: Negative CTA Head. Neck CTA 11/26/18 08:41 CONCLUSION: 1. No significant carotid or vertebral stenosis. Assessment and Plan Assessment (1) Atrial fibrillation with rapid ventricular response: Code(s): I48.91 - Unspecified atrial fibrillation Status: Acute Onset Date: ~09/15/18 (2) COPD (chronic obstructive pulmonary disease): Code(s): J44.9 - Chronic obstructive pulmonary disease, unspecified Status: Chronic (3) Hypertension: Code(s): I10 - Essential (primary) hypertension Status: Chronic Onset Date: ~12/2017 (4) Ovarian cancer: Code(s): C56.9 - Malignant neoplasm of unspecified ovary Status: Chronic Onset Date: ~12/15/17 (5) Brain TIA: Code(s): G45.9 - Transient cerebral ischemic attack, unspecified Status: Acute Plan Transient neurological deficit, felt to most likely be secondary to TIA - Pt is an 82 yo female with hypertension, CKD Stage III, COPD, Hx of ovarian cancer diagnosed in 12/2017 s/p surgery/chemo, chemo induced neuropathy, and pulmonary embolism/DVT in 07/2018. She was recently [place] [facility] [place] with A. 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 2D ECHO during that admission noted left ventricular systolic function is normal with estimated ejection fraction of 60-65% and the estimated pulmonary arterial pressure was 32 mmHg. She was to continue Xarelto. - Pt presented to the ED at [facility] [place] on 11/26/18 with sudden onset AMS, dysarthria and left sided weakness. She was found to be in A. fib RVR and was given Cardizem 20mg IV and converted to NSR. - Pt was seen by Neurology in the ED as a stroke alert. TPA was not given as she is on Xarelto. - Head CT (11/26/18) --> No acute hemorrhage, midline shift or extra-axial fluid collections, severe periventricular and subcortical white matter small vessel ischemic changes bilaterally, old lacunar infarcts within left basal ganglia, and cerebral atrophy. - Head CTA (11/26/18): Negative CTA Head. - Neck CTA (11/26/18): No significant carotid or vertebral stenosis. - The pts speech has improved to baseline. Her left sided weakness is also improving. - MRI brain is to be performed this afternoon. Called radiology and her PPM is compatible with MRI. - Pt passed bedside swallow evaluation, ok for cardiac diet - Xarelto changed to Eliquis 5mg BID on 11/27 per Neurology request. - Cont. statin - Cont. PT/OT at rehab - pt planned for discharge to rehab after MRI this afternoon A. fib/RVR Tachy-rula syndrome s/p PPM - Pt converted from A.fib/RVR to NSR after a dose of Cardizem - Previous 2D Echo (09/15/18): The left ventricular systolic function is normal with an estimated ejection fraction in the range of 60-65%. Normal left ventricular size. Wall thickness is normal. No regional wall motion abnormalities are present. Diffuse calcification of the aortic valve. No aortic valve stenosis. There is trace tricuspid valve regurgitation. The estimated pulmonary arterial pressure is 32 mmHg. Trivial pulmonary valve regurgitation. - Xarelto changed to Eliquis Hx PE/DVT - Eliquis Hx of ovarian ca/chemo induced peripheral neuropathy - Cont. Duloxetine for pain control HTN - BP is stable - Cont. to monitor Attending Attestation Patient examined. Assessment and plan formulated with Hannah Guillen PA-C. I agree with the above. mri today. change to eliquis. dc to snf. Progress Note: Quality VTE Deep Vein Thrombosis/Pulmonary Embolism Present on Admission: No _ (1) Ovarian cancer Qualifiers: Laterality: (2) COPD (chronic obstructive pulmonary disease) Qualifiers: COPD type: emphysema Chronic bronchitis type: Emphysema type: unspecified Qualified Code(s): J43.9 - Emphysema, unspecified (3) Hypertension Qualifiers: Hypertension type: essential hypertension Qualified Code(s): I10 - Essential (primary) hypertension
--- NOTE | 2018-11-27 12:13 | P.DIET ---
Nutritional Evaluation Type of nutrition evaluation: initial Nutrition consult regarding: Diet Evaluation Nutrition screening: Weight Loss > 10 lbs Screening comments: 11/26 WLS Objective - Diagnosis TIA, Stroke alert, L sided weakness resolved - Objective Body Mass Index: 23.2 % IBW: 109 (IBW = 140lb) Body Weight Used for Calculations: Actual (69.1kg) Energy Needs - Lower Range (kCal/kg): 25 Energy Needs - Upper Range (kCal/kg): 30 Lower Limit kCal/kg (kCals): 1,728 Upper Limit kCal/kg (kCals): 2,073 Lower Limit Protein Factor (Grams per Kg): 1.1 Upper Limit Protein Factor (Grams per Kg): 1.3 Lower Protein Needs (Protein): 76 Upper Protein Needs (Protein): 90 Dietitian Reviewed in Medical Record: Current diet, Curent medications, Intake & Output, Labs, Medical history Diet Order: cardiac Oral Diet Intake Amount: Fair 50-75% Objective Comments: PMH: CKD, COPD, HTN, osteopenia, ovarian CA Meds: Vit D3 Labs: A1c 5.4% Assessment Assessment: Pt currently at nutritional risk r/t reported unplanned wt loss. Pt currently consuming a cardiac diet, eating around 75% of breakfast this am (11/27). Hx of ovarian cancer and chemotherapy noted. RD to recommend Ensure Enlive BID as PO supplement for additional nutrition. Continue to monitor PO and supplement intake. Labs reviewed, dietitian following. Recommendations: 1.RD to recommend Ensure Enlive BID as PO supplement for additional nutrition 2. Continue to monitor PO and supplement intake 3. Dietitian following Dietitian to Monitor: Lab values, Supplement acceptance, Intake & Output, Diet tolerance, Weight change, PO Intake, Medical course
[2018-11-27] MEDS ORDERED: Gadobutrol PF 7.5 MMOL/7.5 ML Vial (for RAD) IV.SIG ONE (13:28)
--- NOTE | 2018-11-27 14:03 | MR ---
EXAM DATE: 11/27/2018 1:58 PM EST AGE/SEX: 82 years / Female INDICATIONS: CVA. Left side weakness. Dysphagia. CLINICAL DATA: This is the patient's initial encounter. Patient reports that signs and symptoms have been present for 1 day and indicates a pain score of 0/10. MEDICAL/SURGICAL HISTORY: Carcinoma, ovarian. Hypertension. Hysterectomy. Pacemaker. ORIF shahid roy. COMPARISON: [facility] [place] HEAD W/O CONTRAST, 11/26/2018. . TECHNIQUE: Multiplanar, multisequence examination of the brain was performed without and with 7 ml Ga davist (gadobutrol) contrast as a single exam dose. FINDINGS: Cerebrum: The ventricles are normal for age. There is bilateral cortical atrophy. No evidence of mi dline shift, mass lesion, hemorrhage or acute infarction. No extraaxial fluid collections are seen. The pituitary gland and suprasellar cistern are normal in configuration. White Matter: There is moderate diffuse chronic white matter changes bilaterally characteristic of i schemic demyelinization. Posterior Fossa: The cerebellum and brainstem are intact. The 4th ventricle is midline. The cerebel lopontine angle is unremarkable. The cerebellar tonsils are normal in position. Diffusion Imaging: No focal areas of restricted diffusion are seen. No evidence of acute infarction . Extracranial: The visualized portions of the orbits and paranasal sinuses are unremarkable. Post Contrast: No abnormal areas of parenchymal or dural enhancement. No evidence of blood-brain ba rrier breakdown. No enhancing mass occupying lesions are demonstrated. CONCLUSION: 1. Diffuse bilateral cortical atrophy and chronic white matter changes characteristic for patient's age. 2. No focal or acute intracranial pathology. Electronically signed by: Venkat Magana MD Board Certified Radiologist 11/27/2018 2:02 PM EST
[2018-11-27 16:59] VITALS: BP 111/64; PULSE 80; RESP 16; TEMP 97.5; O2SAT 95
[2018-11-27] MEDS ORDERED: Duloxetine 60 MG DR Capsule PO SCH (21:00)
== END 2018-11-27 17:40 | DRG 69 ==
LOC: NEPE 08:36 → NEDA 08:36 → N05 12:29
PROVIDERS: ADMIT Hospitalist; ATTEND Hospitalist
CPT/HCPCS: 0042T; 70450; 70496; 70498; 70553; 71010; 71045; 76497; 76499; 80048; 80061; 80307; 81001; 82550; 82948; 82962; 83036; 84484; 85025; 85384; 85610; 85730; 86850; 86900; 86901; 87077; 87086; 87186; 90760; 93005; 96360; 97162; 97167; 97530; 99285; A9585; J7030; P9612; Q9967